=== PATIENT | female | born 1965 | race African-American/Black ===

== ENCOUNTER 2022-11-30 13:39 | Inpatient (IN) | payer SELFPAY ==
[~2022-11-30 13:39] MED LIST: Iopamidol 370 76% 100 ML VIAL ONE
[2022-11-30] MEDS ORDERED: niCARdipine 25 MG/10 ML VIAL ONE (14:16)
[2022-11-30] MEDS ORDERED: Iopamidol 370 76% 100 ML VIAL ONE (14:35)
[2022-11-30] MEDS ORDERED: Senokot S 8.6-50 MG TAB PO PRN (14:41)
[2022-11-30] MEDS ORDERED: HYDROcodone/Acetaminophen 5/325 mg Tablet PO PRN (14:41)
[2022-11-30] MEDS ORDERED: Labetalol HCl 100 MG/20 ML VIAL SLOW IVP PRN (14:43)
[2022-11-30] MEDS ORDERED: Communication Order-Pharmacy FS ONE (14:43)
[2022-11-30] MEDS ORDERED: niCARdipine 25 MG in Sodium Chloride 0.9% 250 ML 250 ML IVPB PRN (14:43)
[2022-11-30] MEDS ORDERED: Dextrose 5% in Water 1,000 ML IV PRN (14:47)
[2022-11-30] MEDS ORDERED: HumaLOG 300 UNITS/3 ML VIAL SC PRN (14:47)
[2022-11-30] MEDS ORDERED: Dextrose 50% Abboject 50 ML SYRINGE SLOW IVP PRN (14:47)
[2022-11-30 15:39] LABS: SARS-CoV-2 NAA Rapid Test Not Detected (NotDetected)
[2022-11-30 15:57] VITALS: BMI 21.6
[2022-11-30] MEDS ORDERED: FLU VACC QS2022-23(6MOS UP)/PF 60 MCG/0.5 ML SYRINGE IM ONE (17:00)
[2022-11-30 17:09] LABS: Amphetamine Not Detected (NotDetected); Barbiturates Screen Not Detected (NotDetected); Benzodiazepine Screen Not Detected (NotDetected); Cocaine Metabolite Screen Detected (NotDetected); Methadone Not Detected (NotDetected); Methamphetamine Not Detected (NotDetected); Opiate Screen Not Detected (NotDetected); Oxycodone Screen Not Detected (NotDetected); Phencyclidine (PCP) Not Detected (NotDetected); THC/Cannabinoid Screen Not Detected (NotDetected); Tricyclic Screen Not Detected (NotDetected)
[2022-11-30] MEDS: Famotidine/PF 20 mg/2ml Vial SLOW IVP SCH (20:34)
[2022-11-30] MEDS: Atorvastatin Calcium 40 MG TAB PO SCH (20:34)
[2022-11-30] MEDS: HumaLOG 300 UNITS/3 ML VIAL SC PRN (21:12)
[2022-11-30] MEDS ORDERED: Insulin Regular 300 UNITS/3 ML VIAL SC SCH (22:45)
[2022-12-01] MEDS: hydrALAZINE 20 MG/ML VIAL SLOW IVP PRN ×4 (03:11→18:04)
[2022-12-01] MEDS: HumaLOG 300 UNITS/3 ML VIAL SC PRN ×4 (04:36→20:49)
[2022-12-01] MEDS: Famotidine/PF 20 mg/2ml Vial SLOW IVP SCH ×2 (07:36→20:37)
[2022-12-01] MEDS ORDERED: niCARdipine 25 MG in Sodium Chloride 0.9% 250 ML 250 ML IVPB PRN (14:04)
[2022-12-01] MEDS ORDERED: Labetalol HCl 100 MG/20 ML VIAL SLOW IVP PRN (14:04)
[2022-12-01] MEDS ORDERED: Communication Order-Pharmacy FS ONE (14:04)
[2022-12-01] MEDS ORDERED: hydrALAZINE 20 MG/ML VIAL ONE ×2 (14:42→18:04)
[2022-12-01 16:10] LABS: #Basophils 0.1 thou/uL (0.0-0.2); #Eosinphils 0.1 thou/uL (0.0-0.7); #Lymphocytes 3.5 thou/uL (1.20-3.40); #Monocytes 0.7 thou/uL (0.11-0.59); %Eosinophils 0.6 % (0.0-10.0); %Lymphocytes 33.5 % (21.0-51.0); %Monocytes 7.2 % (0.0-10.0); %Neutrophils 57.7 % (42.0-75.0); Hemoglobin 14.2 g/dL (12.0-16.0); Mean Corpuscular HGB CONC 34.2 g/dL (32.0-36.0); Mean Corpuscular Hemoglobin 31.1 pg (27.0-31.0); Mean Corpuscular Volume 90.9 fl (78.0-98.0); Mean Platelet Volume 7.9 fL (7.4-10.4); Platelet Count 255 10x3/uL (130-400); RBC Distribution Width 12.9 % (11.5-14.5); Red Blood Cell (RBC) Count 4.58 mill/uL (4.20-5.40); White Blood Cell (WBC) Count 10.4 10x3/uL (4.8-10.8)
[2022-12-01 16:29] LABS: ALT (SGPT) 13 U/L (8-55); AST (SGOT) 11 U/L (5-34); Alkaline Phosphatase 78 U/L (40-110); Anion Gap 14 mmol/L (10-20); BUN (Urea Nitrogen) 15 mg/dL (9.8-20.1); Bilirubin, Total 0.3 mg/dL (0.2-1.2); Calc. Creatinine Clearance 82 mL/min (70-130); Calcium 10.1 mg/dL (7.8-10.44); Carbon Dioxide 24 mmol/L (22-29); Cardiac Risk 3.6 (Less than 4.5); Chloride 104 mmol/L (98-107); Cholesterol 222 mg/dl (< 200 Desired); Estimated GFR 88; Globulin 3.2 g/dL (2.4-3.5); Glucose 124 mg/dL (70-105); HDL Cholesterol 61 mg/dL (>60 Neg Risk); LDL Cholesterol, Calculated 147 mg/dL; Potassium 3.9 mmol/L (3.5-5.1); Protein, Total 7.2 g/dL (6.0-8.3); Sodium 138 mmol/L (136-145); Triglycerides 69 mg/dL (Less than 150)
[2022-12-01] MEDS: Atorvastatin Calcium 40 MG TAB PO SCH (20:37)
[2022-12-02] MEDS ORDERED: hydrALAZINE 20 MG/ML VIAL ONE (00:10)
[2022-12-02] MEDS: hydrALAZINE 20 MG/ML VIAL SLOW IVP PRN (00:10)
[2022-12-02] MEDS: HumaLOG 300 UNITS/3 ML VIAL SC PRN ×4 (05:50→20:56)
[2022-12-02] MEDS: Aspirin 325 mg Enteric Coated Tablet PO SCH (08:02)
[2022-12-02] MEDS: Famotidine 20 MG TAB PO SCH ×2 (08:02→21:11)
[2022-12-02] MEDS ORDERED: Haloperidol Lactate 5 MG/ML VIAL SLOW IVP SCH (12:45)
[2022-12-02] MEDS ORDERED: Lorazepam 2 MG/ML VIAL SLOW IVP SCH (12:45)
[2022-12-02] MEDS ORDERED: Haloperidol Lactate 5 MG/ML VIAL SLOW IVP PRN (18:39)
[2022-12-02] MEDS ORDERED: Lorazepam 2 MG/ML VIAL SLOW IVP PRN (18:39)
[2022-12-02] MEDS: Insulin Glargine 30 UNITS/0.3 ML VIAL SC SCH (20:50)
[2022-12-02] MEDS: Atorvastatin Calcium 40 MG TAB PO SCH (21:10)
[2022-12-03 03:58] LABS: Hemoglobin 13.9 g/dL (12.0-16.0); Mean Corpuscular HGB CONC 33.7 g/dL (32.0-36.0); Mean Corpuscular Hemoglobin 31.1 pg (27.0-31.0); Mean Corpuscular Volume 92.4 fl (78.0-98.0); Mean Platelet Volume 8.4 fL (7.4-10.4); Platelet Count 203 10x3/uL (130-400); RBC Distribution Width 12.8 % (11.5-14.5); Red Blood Cell (RBC) Count 4.47 mill/uL (4.20-5.40); White Blood Cell (WBC) Count 7.2 10x3/uL (4.8-10.8)
[2022-12-03 04:20] LABS: Anion Gap 13 mmol/L (10-20); BUN (Urea Nitrogen) 26 mg/dL (9.8-20.1); Calc. Creatinine Clearance 82 mL/min (70-130); Calcium 9.6 mg/dL (7.8-10.44); Carbon Dioxide 24 mmol/L (22-29); Chloride 106 mmol/L (98-107); Estimated GFR 89; Glucose 141 mg/dL (70-105); Potassium 3.8 mmol/L (3.5-5.1); Sodium 139 mmol/L (136-145)
[2022-12-03] MEDS: HumaLOG 300 UNITS/3 ML VIAL SC PRN ×4 (06:45→20:36)
[2022-12-03] MEDS: Amlodipine 5 MG TAB PO SCH (08:51)
[2022-12-03] MEDS: Famotidine 20 MG TAB PO SCH ×2 (08:51→20:16)
[2022-12-03] MEDS: Aspirin 325 mg Enteric Coated Tablet PO SCH (08:51)
[2022-12-03] MEDS ORDERED: hydrALAZINE 20 MG/ML VIAL SLOW IVP PRN (11:01)
[2022-12-03] MEDS: Atorvastatin Calcium 40 MG TAB PO SCH (20:16)
[2022-12-03] MEDS: Insulin Glargine 30 UNITS/0.3 ML VIAL SC SCH (20:34)
[2022-12-04] MEDS: Acetaminophen 325 MG TAB PO PRN (04:30)
[2022-12-04] MEDS: HumaLOG 300 UNITS/3 ML VIAL SC PRN ×4 (06:28→20:39)
[2022-12-04] MEDS: Aspirin 325 mg Enteric Coated Tablet PO SCH (09:32)
[2022-12-04] MEDS: Amlodipine 5 MG TAB PO SCH (09:32)
[2022-12-04] MEDS: Hydrochlorothiazide 25 MG TAB PO SCH (09:33)
[2022-12-04] MEDS: Famotidine 20 MG TAB PO SCH ×3 (09:33→23:36)
[2022-12-04] MEDS ORDERED: Lisinopril 20 MG TAB PO SCH (10:30)
[2022-12-04] MEDS ORDERED: hydrOXYzine 25 MG TAB PO SCH (15:00)
[2022-12-04] MEDS ORDERED: hydrOXYzine 25 MG TAB PO PRN (18:55)
[2022-12-04] MEDS: Insulin Glargine 30 UNITS/0.3 ML VIAL SC SCH (20:39)
[2022-12-04] MEDS: Atorvastatin Calcium 40 MG TAB PO SCH ×2 (20:41→23:36)
[2022-12-05] MEDS: HumaLOG 300 UNITS/3 ML VIAL SC PRN ×4 (06:20→20:40)
[2022-12-05] MEDS: Hydrochlorothiazide 25 MG TAB PO SCH (08:45)
[2022-12-05] MEDS: Lisinopril 20 MG TAB PO SCH (08:46)
[2022-12-05] MEDS: Famotidine 20 MG TAB PO SCH ×2 (08:46→20:39)
[2022-12-05] MEDS: Amlodipine 10 MG TAB PO SCH (08:47)
[2022-12-05] MEDS: Aspirin Chewable 81 MG TAB PO SCH (08:47)
[2022-12-05] MEDS: Acetaminophen 325 MG TAB PO PRN ×2 (16:07→20:39)
[2022-12-05] MEDS: Atorvastatin Calcium 40 MG TAB PO SCH (20:39)
[2022-12-05] MEDS: Insulin Glargine 30 UNITS/0.3 ML VIAL SC SCH (20:39)
[2022-12-06] MEDS: HumaLOG 300 UNITS/3 ML VIAL SC PRN ×4 (06:07→21:51)
[2022-12-06] MEDS: Aspirin Chewable 81 MG TAB PO SCH (08:54)
[2022-12-06] MEDS: Lisinopril 20 MG TAB PO SCH (08:54)
[2022-12-06] MEDS: Hydrochlorothiazide 25 MG TAB PO SCH (08:54)
[2022-12-06] MEDS: Famotidine 20 MG TAB PO SCH ×2 (08:54→21:52)
[2022-12-06] MEDS: Amlodipine 10 MG TAB PO SCH (08:55)
[2022-12-06] MEDS ORDERED: Melatonin 3 MG TAB PO PRN (21:40)
[2022-12-06] MEDS: Atorvastatin Calcium 40 MG TAB PO SCH (21:52)
[2022-12-06] MEDS: Insulin Glargine 30 UNITS/0.3 ML VIAL SC SCH (21:52)
[2022-12-06] MEDS: Acetaminophen 325 MG TAB PO PRN (21:55)
[2022-12-07] MEDS: HumaLOG 300 UNITS/3 ML VIAL SC PRN ×3 (06:14→17:20)
[2022-12-07] MEDS: Lisinopril 20 MG TAB PO SCH (09:22)
[2022-12-07] MEDS: Famotidine 20 MG TAB PO SCH ×2 (09:22→21:27)
[2022-12-07] MEDS: Aspirin Chewable 81 MG TAB PO SCH (09:23)
[2022-12-07] MEDS: Amlodipine 10 MG TAB PO SCH (09:23)
[2022-12-07] MEDS: Hydrochlorothiazide 25 MG TAB PO SCH (09:26)
[2022-12-07] MEDS ORDERED: Glimepiride 4 MG TAB PO SCH (11:30)
[2022-12-07] MEDS ORDERED: metFORMIN 500 MG TAB PO SCH (11:30)
[2022-12-07] MEDS: Acetaminophen 325 MG TAB PO PRN ×2 (17:19→21:27)
[2022-12-07] MEDS ORDERED: Zolpidem Tartrate 5 MG TAB PO PRN (17:33)
[2022-12-07] MEDS: Atorvastatin Calcium 40 MG TAB PO SCH (21:27)
[2022-12-07] MEDS: metFORMIN 500 MG TAB PO SCH (21:27)
[2022-12-07] MEDS: Insulin Glargine 30 UNITS/0.3 ML VIAL SC SCH (21:28)
[2022-12-08] MEDS: HumaLOG 300 UNITS/3 ML VIAL SC PRN ×2 (06:15→16:24)
[2022-12-08 06:26] LABS: #Eosinphils 0.2 thou/uL (0.0-0.7); #Lymphocytes 2.1 thou/uL (1.20-3.40); #Monocytes 0.5 thou/uL (0.11-0.59); #Neutrophils 3.3 thou/uL (1.40-6.50); %Basophils 0.6 % (0.0-1.0); %Eosinophils 2.7 % (0.0-10.0); %Lymphocytes 33.6 % (21.0-51.0); %Monocytes 8.8 % (0.0-10.0); %Neutrophils 54.2 % (42.0-75.0); Hemoglobin 12.8 g/dL (12.0-16.0); Mean Corpuscular HGB CONC 32.9 g/dL (32.0-36.0); Mean Corpuscular Hemoglobin 30.8 pg (27.0-31.0); Mean Corpuscular Volume 93.6 fl (78.0-98.0); Mean Platelet Volume 10.7 fL (7.4-10.4); Platelet Count 183 10x3/uL (130-400); RBC Distribution Width 12.2 % (11.5-14.5); Red Blood Cell (RBC) Count 4.14 mill/uL (4.20-5.40); White Blood Cell (WBC) Count 6.2 10x3/uL (4.8-10.8)
[2022-12-08 06:37] LABS: Anion Gap 15 mmol/L (10-20); BUN (Urea Nitrogen) 25 mg/dL (9.8-20.1); Calc. Creatinine Clearance 92 mL/min (70-130); Calcium 9.3 mg/dL (7.8-10.44); Carbon Dioxide 22 mmol/L (22-29); Chloride 103 mmol/L (98-107); Estimated GFR 98; Glucose 163 mg/dL (70-105); Potassium 4.9 mmol/L (3.5-5.1); Sodium 135 mmol/L (136-145)
[2022-12-08] MEDS: Amlodipine 10 MG TAB PO SCH (10:39)
[2022-12-08] MEDS: Lisinopril 20 MG TAB PO SCH (10:39)
[2022-12-08] MEDS: Aspirin Chewable 81 MG TAB PO SCH (10:39)
[2022-12-08] MEDS: metFORMIN 500 MG TAB PO SCH ×2 (10:40→19:25)
[2022-12-08] MEDS: Hydrochlorothiazide 25 MG TAB PO SCH (10:40)
[2022-12-08] MEDS: Famotidine 20 MG TAB PO SCH ×2 (10:40→19:25)
[2022-12-08] MEDS: Glimepiride 4 MG TAB PO SCH (10:42)
[2022-12-08] MEDS ORDERED: hydrOXYzine 25 MG TAB PO SCH (19:15)
[2022-12-08] MEDS: Atorvastatin Calcium 40 MG TAB PO SCH (19:25)
[2022-12-08] MEDS: Insulin Glargine 30 UNITS/0.3 ML VIAL SC SCH (19:25)
[2022-12-09 05:25] LABS: #Eosinphils 0.1 thou/uL (0.0-0.7); #Lymphocytes 2.4 thou/uL (1.20-3.40); #Monocytes 0.7 thou/uL (0.11-0.59); #Neutrophils 3.6 thou/uL (1.40-6.50); %Basophils 0.5 % (0.0-1.0); %Eosinophils 1.3 % (0.0-10.0); %Lymphocytes 35.1 % (21.0-51.0); %Monocytes 10.2 % (0.0-10.0); %Neutrophils 52.9 % (42.0-75.0); Hemoglobin 12.7 g/dL (12.0-16.0); Mean Corpuscular HGB CONC 33.8 g/dL (32.0-36.0); Mean Corpuscular Hemoglobin 31.5 pg (27.0-31.0); Mean Corpuscular Volume 93.2 fl (78.0-98.0); Mean Platelet Volume 7.9 fL (7.4-10.4); Platelet Count 217 10x3/uL (130-400); RBC Distribution Width 12.2 % (11.5-14.5); Red Blood Cell (RBC) Count 4.04 mill/uL (4.20-5.40); White Blood Cell (WBC) Count 6.7 10x3/uL (4.8-10.8)
[2022-12-09 05:47] LABS: Anion Gap 12 mmol/L (10-20); BUN (Urea Nitrogen) 22 mg/dL (9.8-20.1); Calc. Creatinine Clearance 89 mL/min (70-130); Carbon Dioxide 24 mmol/L (22-29); Chloride 103 mmol/L (98-107); Estimated GFR 95; Glucose 101 mg/dL (70-105); Potassium 4.2 mmol/L (3.5-5.1); Sodium 135 mmol/L (136-145)
[2022-12-09] MEDS: Glimepiride 4 MG TAB PO SCH (09:46)
[2022-12-09] MEDS: Hydrochlorothiazide 25 MG TAB PO SCH (09:46)
[2022-12-09] MEDS: metFORMIN 500 MG TAB PO SCH ×2 (09:46→20:27)
[2022-12-09] MEDS: Aspirin Chewable 81 MG TAB PO SCH (09:46)
[2022-12-09] MEDS: Famotidine 20 MG TAB PO SCH ×2 (09:47→20:27)
[2022-12-09] MEDS: Amlodipine 10 MG TAB PO SCH (09:47)
[2022-12-09] MEDS: Lisinopril 20 MG TAB PO SCH (09:47)
[2022-12-09] MEDS: Atorvastatin Calcium 40 MG TAB PO SCH (20:27)
[2022-12-10 06:24] LABS: #Basophils 0.1 thou/uL (0.0-0.2); #Eosinphils 0.1 thou/uL (0.0-0.7); #Lymphocytes 2.3 thou/uL (1.20-3.40); #Monocytes 0.6 thou/uL (0.11-0.59); %Basophils 0.9 % (0.0-1.0); %Eosinophils 2.4 % (0.0-10.0); %Lymphocytes 37.3 % (21.0-51.0); %Monocytes 9.6 % (0.0-10.0); %Neutrophils 49.8 % (42.0-75.0); Hemoglobin 12.5 g/dL (12.0-16.0); Mean Corpuscular HGB CONC 33.8 g/dL (32.0-36.0); Mean Corpuscular Hemoglobin 31.7 pg (27.0-31.0); Mean Corpuscular Volume 93.8 fl (78.0-98.0); Platelet Count 230 10x3/uL (130-400); RBC Distribution Width 12.4 % (11.5-14.5); Red Blood Cell (RBC) Count 3.95 mill/uL (4.20-5.40); White Blood Cell (WBC) Count 6.1 10x3/uL (4.8-10.8)
[2022-12-10 06:42] LABS: Anion Gap 12 mmol/L (10-20); BUN (Urea Nitrogen) 22 mg/dL (9.8-20.1); Calc. Creatinine Clearance 90 mL/min (70-130); Calcium 9.8 mg/dL (7.8-10.44); Carbon Dioxide 24 mmol/L (22-29); Chloride 104 mmol/L (98-107); Estimated GFR 96; Glucose 128 mg/dL (70-105); Potassium 3.9 mmol/L (3.5-5.1); Sodium 136 mmol/L (136-145)
[2022-12-10 08:28] VITALS: TEMP 98.1
[2022-12-10] MEDS: Aspirin Chewable 81 MG TAB PO SCH (09:25)
[2022-12-10] MEDS: Lisinopril 20 MG TAB PO SCH (09:25)
[2022-12-10] MEDS: Amlodipine 10 MG TAB PO SCH (09:25)
[2022-12-10] MEDS: Famotidine 20 MG TAB PO SCH (09:25)
[2022-12-10] MEDS: Glimepiride 4 MG TAB PO SCH (09:26)
[2022-12-10] MEDS: Hydrochlorothiazide 25 MG TAB PO SCH (09:26)
[2022-12-10] MEDS: metFORMIN 500 MG TAB PO SCH (09:27)
[2022-12-10 09:28] VITALS: BP 154/84
== END 2022-12-10 09:50 | disposition left against medical advice (07) | DRG 917 ==
LOC: ERS 13:39 → CCU 14:32 → NEURO 12-03 22:18
PROVIDERS: ADMIT Family Medicine; ATTEND Family Medicine
DX: T40.5X1A Poisoning by cocaine, accidental (unintentional), initial encounter (principal); I63.9 Cerebral infarction, unspecified; G81.94 Hemiplegia, unspecified affecting left nondominant side; I16.1 Hypertensive emergency; F14.10 Cocaine abuse, uncomplicated; E11.65 Type 2 diabetes mellitus with hyperglycemia; I65.1 Occlusion and stenosis of basilar artery; Z20.822 Contact with and (suspected) exposure to COVID-19; Z91.199 Patient's noncompliance with other medical treatment and regimen due to unspecified reason; Z92.82 Status post administration of tPA (rtPA) in a different facility within the last 24 hours prior to admission to current facility; Y92.9 Unspecified place or not applicable
CPT/HCPCS: 36415; 36416; 70450; 70496; 70498; 71045; 80048; 80053; 80061; 80306; 83036; 85025; 85027; 87811; 93005; 93306; 96365; J0360; J1630; J1650; J1815; J2060; J7050; Q9967; S0028; U0002

== ENCOUNTER 2023-01-31 00:03 | Inpatient (IN) | payer OTHER ==
[2023-01-31] MEDS ORDERED: Rocuronium Bromide 10 MG/ML (10ML VIAL) ONE (00:05)
[2023-01-31] MEDS ORDERED: fentaNYL 50 mcg/mL 1 mL Vial ONE ×4 (00:22→02:34)
[2023-01-31] MEDS ORDERED: Propofol 1,000 MG/100 ML VIAL IV ONE (00:22)
[2023-01-31 00:35] LABS: Actual Bicarbonate (HCO3a) 22.4 mEq/L (22-28); Base Excess (BEa) 0.3 mEq/L (-2.0 to +3.0); CO2 Tension 29.4 mmHg (35.0-45.0); Calcium, Ionized (arterial) 1.14 mmol/L (1.12-1.30); Carboxyhemoglobin (COHb) 5.6 gm% (0.0-3.0); Hemoglobin (Hb) 14.8 g/dL (12.0-16.0); O2 Tension (PaO2), arterial 325.8 mmHg (80.0-100.0); Potassium - ABG Lab 3.08 mmol/L (3.70-5.30)
[2023-01-31 00:38] LABS: Puncture Site RRA
[2023-01-31 00:45] LABS: Amphetamine Not Detected (NotDetected); Barbiturates Screen Not Detected (NotDetected); Benzodiazepine Screen Not Detected (NotDetected); Cocaine Metabolite Screen Detected (NotDetected); Methadone Not Detected (NotDetected); Methamphetamine Not Detected (NotDetected); Opiate Screen Not Detected (NotDetected); Oxycodone Screen Not Detected (NotDetected); Phencyclidine (PCP) Not Detected (NotDetected); THC/Cannabinoid Screen Not Detected (NotDetected); Tricyclic Screen Not Detected (NotDetected)
[2023-01-31 00:48] LABS: Bacteria/HPF None Seen HPF (None Seen); Bilirubin Negative (Negative); Blood, Urine Negative (Negative); Clarity Clear (Clear); Glucose, Urine (Dipstick) Greater than 1000 mg/dL (Negative); Ketone, Urine Negative (Negative); Leukocyte Negative Leu/uL (Negative); Nitrite Negative (Negative); Protein, Urine (Dipstick) 50 mg/dL (Neg-Trace); RBC/HPF None Seen HPF (0-3); Specific Gravity, Urine 1.023 (1.002-1.036); Squamous Epithelial 0-3 HPF (0-3); Urobilinogen Normal mg/dL (Less than 2); WBC/HPF 0-3 HPF (0-3)
[2023-01-31 01:04] LABS: #Eosinphils 0.1 thou/uL (0.0-0.7); #Lymphocytes 2.3 thou/uL (1.20-3.40); #Monocytes 0.4 thou/uL (0.11-0.59); #Neutrophils 4.3 thou/uL (1.40-6.50); %Basophils 0.7 % (0.0-1.0); %Eosinophils 1.4 % (0.0-10.0); %Lymphocytes 31.8 % (21.0-51.0); %Monocytes 5.9 % (0.0-10.0); %Neutrophils 60.1 % (42.0-75.0); Hematocrit 40.5 % (36.0-47.0); Hemoglobin 13.8 g/dL (12.0-16.0); Mean Corpuscular Hemoglobin 30.6 pg (27.0-31.0); Mean Corpuscular Volume 90.2 fl (78.0-98.0); Mean Platelet Volume 8.4 fL (7.4-10.4); Platelet Count 215 10x3/uL (130-400); RBC Distribution Width 12.7 % (11.5-14.5); Red Blood Cell (RBC) Count 4.49 mill/uL (4.20-5.40); White Blood Cell (WBC) Count 7.1 10x3/uL (4.8-10.8)
[2023-01-31] MEDS ORDERED: niCARdipine 25 MG/10 ML SDV ONE ×3 (01:04→02:40)
[2023-01-31] MEDS ORDERED: hydrALAZINE 20 MG/ML VIAL ONE (01:25)
[2023-01-31 01:28] LABS: Acetaminophen Less than 10.0 mcg/mL (10.0-30.0); Alcohol Less than 10 mg/dL (Less than 10); Salicylate Less than 8.0 mg/dL (15.0-30.0)
[2023-01-31 01:31] LABS: ALT (SGPT) 10 U/L (8-55); AST (SGOT) 22 U/L (5-34); Albumin 4.1 g/dL (3.5-5.0); Alkaline Phosphatase 80 U/L (40-110); Anion Gap 18 mmol/L (10-20); BUN (Urea Nitrogen) 16 mg/dL (9.8-20.1); Bilirubin, Total 0.3 mg/dL (0.2-1.2); CK (CPK) 88 U/L (29-168); Calc. Creatinine Clearance 0 mL/min (70-130); Calcium 9.7 mg/dL (7.8-10.44); Carbon Dioxide 20 mmol/L (22-29); Chloride 103 mmol/L (98-107); Estimated GFR 69; Globulin 3.8 g/dL (2.4-3.5); Glucose 329 mg/dL (70-105); Lipase 6 U/L (8-78); Potassium 3.7 mmol/L (3.5-5.1); Protein, Total 7.9 g/dL (6.0-8.3); Sodium 137 mmol/L (136-145)
[2023-01-31] MEDS ORDERED: levETIRAcetam 500 MG/5 ML VIAL ONE (01:49)
[2023-01-31] MEDS ORDERED: niCARdipine 25 MG in Sodium Chloride 0.9% 250 ML 250 ML IVPB PRN (04:15)
[2023-01-31] MEDS ORDERED: Propofol BOLUS 1,000 MG/100 ML VIAL IV PRN (04:15)
[2023-01-31] MEDS ORDERED: Fentanyl BOLUS 250 ML IVPB PRN (04:15)
[2023-01-31] MEDS ORDERED: DISCONTINUE PREVIOUS NARCOTIC PAIN MEDICATIONS AND BENZODIAZEPINES FS SCH (04:15)
[2023-01-31] MEDS: Sodium Chloride 0.9% 1,000 ML IV SCH ×2 (04:43→20:00)
[2023-01-31] MEDS ORDERED: Lorazepam 2 MG/ML VIAL SLOW IVP PRN (04:45)
[2023-01-31] MEDS ORDERED: Glucagon 1 MG/ML KIT IM PRN (04:47)
[2023-01-31] MEDS ORDERED: Dextrose 50% Abboject 50 ML SYRINGE SLOW IVP PRN (04:47)
[2023-01-31] MEDS ORDERED: Electrolyte Replacement Protocol 1 EACH FS PRN (04:48)
[2023-01-31] MEDS ORDERED: Senokot S 8.6-50 MG TAB PO PRN (04:49)
[2023-01-31] MEDS ORDERED: Ondansetron ODT 4 MG TAB PO PRN (04:49)
[2023-01-31] MEDS: niCARdipine 25 MG in Sodium Chloride 0.9% 250 ML 250 ML IVPB PRN ×5 (05:28→11:30)
[2023-01-31] MEDS: Propofol 1,000 MG/100 ML VIAL IV PRN ×5 (05:30→22:21)
[2023-01-31] MEDS: HumaLOG 300 UNITS/3 ML VIAL SC PRN (06:22)
[2023-01-31] MEDS ORDERED: Insulin Glargine 30 UNITS/0.3 ML VIAL SC SCH (09:00)
[2023-01-31] MEDS: Insulin Glargine 30 UNITS/0.3 ML VIAL SC SCH (10:00)
[2023-01-31] MEDS ORDERED: Iopamidol-370 76% 500 ML MDV (1 ML CHARGE) ONE (11:04)
[2023-01-31] MEDS ORDERED: Amlodipine 10 MG TAB PO SCH (11:30)
[2023-01-31] MEDS ORDERED: Lisinopril 20 MG TAB PO SCH (11:30)
[2023-01-31] MEDS ORDERED: Magnevist 469MG/ML 20 ML VIAL ONE (11:37)
[2023-01-31] MEDS: Lisinopril 20 MG TAB PO SCH (13:26)
[2023-01-31] MEDS: Amlodipine 10 MG TAB PO SCH (13:27)
[2023-01-31] MEDS: Pantoprazole 40 MG VIAL IVP SCH (13:28)
[2023-01-31] MEDS: levETIRAcetam 500 MG/5 ML VIAL SLOW IVP SCH (20:00)
[2023-01-31] MEDS ORDERED: Insulin NPH Human Isophane 100 UNITS/ML (10 ML VIAL) SQ SCH (21:00)
[2023-01-31] MEDS ORDERED: levETIRAcetam in NS 500 MG in Premix Bag 1 BAG IVPB SCH (21:00)
[2023-01-31] MEDS ORDERED: Fentanyl CADD 100 ML ONE (22:37)
[2023-01-31] MEDS: Fentanyl CADD 100 ML IV SCH (22:48)
[2023-02-01] MEDS: Propofol 1,000 MG/100 ML VIAL IV PRN (04:04)
[2023-02-01 04:28] LABS: #Eosinphils 0.1 thou/uL (0.0-0.7); #Lymphocytes 2.1 thou/uL (1.20-3.40); #Monocytes 0.5 thou/uL (0.11-0.59); #Neutrophils 4.1 thou/uL (1.40-6.50); %Basophils 0.2 % (0.0-1.0); %Eosinophils 1.5 % (0.0-10.0); %Lymphocytes 30.3 % (21.0-51.0); %Monocytes 6.8 % (0.0-10.0); %Neutrophils 61.1 % (42.0-75.0); Hematocrit 34.2 % (36.0-47.0); Mean Corpuscular HGB CONC 34.9 g/dL (32.0-36.0); Mean Corpuscular Hemoglobin 31.9 pg (27.0-31.0); Mean Corpuscular Volume 91.3 fl (78.0-98.0); Mean Platelet Volume 7.9 fL (7.4-10.4); Platelet Count 203 10x3/uL (130-400); Red Blood Cell (RBC) Count 3.75 mill/uL (4.20-5.40); White Blood Cell (WBC) Count 6.8 10x3/uL (4.8-10.8)
[2023-02-01 04:46] LABS: ALT (SGPT) 7 U/L (8-55); AST (SGOT) 8 U/L (5-34); Albumin 3.3 g/dL (3.5-5.0); Alkaline Phosphatase 67 U/L (40-110); Anion Gap 13 mmol/L (10-20); BUN (Urea Nitrogen) 8 mg/dL (9.8-20.1); Bilirubin, Total 0.3 mg/dL (0.2-1.2); Calc. Creatinine Clearance 97 mL/min (70-130); Calcium 8.7 mg/dL (7.8-10.44); Carbon Dioxide 22 mmol/L (22-29); Chloride 110 mmol/L (98-107); Estimated GFR 103; Globulin 2.8 g/dL (2.4-3.5); Glucose 120 mg/dL (70-105); Potassium 2.8 mmol/L (3.5-5.1); Protein, Total 6.1 g/dL (6.0-8.3); Sodium 142 mmol/L (136-145)
[2023-02-01] MEDS: Potassium Chloride 40 MEQ in Premix Bag 1 BAG IVPB SCH ×2 (05:48→08:34)
[2023-02-01] MEDS: levETIRAcetam 500 MG/5 ML VIAL SLOW IVP SCH ×2 (08:17→20:49)
[2023-02-01] MEDS: Pantoprazole 40 MG VIAL IVP SCH (08:17)
[2023-02-01] MEDS: Insulin Glargine 30 UNITS/0.3 ML VIAL SC SCH (08:17)
[2023-02-01] MEDS: niCARdipine 25 MG in Sodium Chloride 0.9% 250 ML 250 ML IVPB PRN (08:17)
[2023-02-01] MEDS: Lisinopril 20 MG TAB PO SCH (08:18)
[2023-02-01] MEDS: Amlodipine 10 MG TAB PO SCH (08:18)
[2023-02-01] MEDS ORDERED: Insulin NPH Human Isophane 100 UNITS/ML (10 ML VIAL) SC SCH (09:00)
[2023-02-01] MEDS: HumaLOG 300 UNITS/3 ML VIAL SC PRN (10:18)
[2023-02-01 12:35] LABS: Potassium 4.1 mmol/L (3.5-5.1)
[2023-02-01] MEDS: hydrALAZINE 10 MG TAB PER TUBE SCH ×2 (15:33→20:49)
[2023-02-02] MEDS: Amlodipine 10 MG TAB PO SCH (10:00)
[2023-02-02] MEDS: Insulin Glargine 30 UNITS/0.3 ML VIAL SC SCH (10:01)
[2023-02-02] MEDS: hydrALAZINE 10 MG TAB PER TUBE SCH ×3 (10:01→20:15)
[2023-02-02] MEDS: Lisinopril 20 MG TAB PO SCH (10:01)
[2023-02-02] MEDS: levETIRAcetam 500 MG/5 ML VIAL SLOW IVP SCH ×2 (10:01→20:16)
[2023-02-02] MEDS: Pantoprazole 40 MG VIAL IVP SCH (10:02)
[2023-02-02] MEDS: HumaLOG 300 UNITS/3 ML VIAL SC PRN ×3 (10:23→23:21)
[2023-02-02] MEDS: hydrALAZINE 20 MG/ML VIAL SLOW IVP PRN (13:18)
[2023-02-02] MEDS: niCARdipine 25 MG in Sodium Chloride 0.9% 250 ML 250 ML IVPB PRN (15:18)
[2023-02-02] MEDS ORDERED: Fentanyl CADD 100 ML ONE (20:09)
[2023-02-02] MEDS: Fentanyl CADD 100 ML IV SCH (20:16)
[2023-02-03 06:17] LABS: #Lymphocytes 1.2 thou/uL (1.20-3.40); #Monocytes 0.7 thou/uL (0.11-0.59); #Neutrophils 7.6 thou/uL (1.40-6.50); %Eosinophils 0.4 % (0.0-10.0); %Monocytes 7.2 % (0.0-10.0); %Neutrophils 79.4 % (42.0-75.0); Hematocrit 32.1 % (36.0-47.0); Hemoglobin 10.9 g/dL (12.0-16.0); Mean Corpuscular HGB CONC 34.1 g/dL (32.0-36.0); Mean Corpuscular Hemoglobin 31.6 pg (27.0-31.0); Mean Corpuscular Volume 92.8 fl (78.0-98.0); Mean Platelet Volume 8.7 fL (7.4-10.4); Platelet Count 193 10x3/uL (130-400); RBC Distribution Width 12.9 % (11.5-14.5); Red Blood Cell (RBC) Count 3.46 mill/uL (4.20-5.40); White Blood Cell (WBC) Count 9.6 10x3/uL (4.8-10.8)
[2023-02-03 06:30] LABS: ALT (SGPT) Less than 7 U/L (8-55); AST (SGOT) 8 U/L (5-34); Alkaline Phosphatase 62 U/L (40-110); Anion Gap 13 mmol/L (10-20); BUN (Urea Nitrogen) 19 mg/dL (9.8-20.1); Bilirubin, Total 0.4 mg/dL (0.2-1.2); Calc. Creatinine Clearance 82 mL/min (70-130); Calcium 9.2 mg/dL (7.8-10.44); Carbon Dioxide 22 mmol/L (22-29); Chloride 108 mmol/L (98-107); Estimated GFR 86; Globulin 2.9 g/dL (2.4-3.5); Glucose 173 mg/dL (70-105); Potassium 3.6 mmol/L (3.5-5.1); Protein, Total 5.9 g/dL (6.0-8.3); Sodium 139 mmol/L (136-145)
[2023-02-03] MEDS: HumaLOG 300 UNITS/3 ML VIAL SC PRN ×4 (06:46→23:05)
[2023-02-03 07:16] LABS: Actual Bicarbonate (HCO3a) 21.7 mEq/L (22-28); Base Excess (BEa) -2.3 mEq/L (-2.0 to +3.0); CO2 Tension 34.8 mmHg (35.0-45.0); Calcium, Ionized (arterial) 1.22 mmol/L (1.12-1.30); Hemoglobin (Hb) 11.3 g/dL (12.0-16.0); O2 Tension (PaO2), arterial 107.2 mmHg (80.0-100.0); Potassium - ABG Lab 3.64 mmol/L (3.70-5.30); pH, Arterial 7.41 (7.35-7.45)
[2023-02-03 07:18] LABS: Puncture Site RRA
[2023-02-03] MEDS: levETIRAcetam 500 MG/5 ML VIAL SLOW IVP SCH ×2 (08:13→20:29)
[2023-02-03] MEDS: Insulin Glargine 30 UNITS/0.3 ML VIAL SC SCH (08:13)
[2023-02-03] MEDS: hydrALAZINE 10 MG TAB PER TUBE SCH ×3 (08:14→20:29)
[2023-02-03] MEDS: Amlodipine 10 MG TAB PO SCH (08:14)
[2023-02-03] MEDS: Lisinopril 20 MG TAB PO SCH (08:14)
[2023-02-03] MEDS: Pantoprazole 40 MG VIAL IVP SCH (08:14)
[2023-02-03] MEDS ORDERED: Insulin Glargine 30 UNITS/0.3 ML VIAL SC SCH (09:46)
[2023-02-03] MEDS: hydrALAZINE 20 MG/ML VIAL SLOW IVP PRN (23:21)
[2023-02-04] MEDS: HumaLOG 300 UNITS/3 ML VIAL SC PRN ×3 (04:55→16:57)
[2023-02-04 05:01] LABS: #Eosinphils 0.1 thou/uL (0.0-0.7); #Monocytes 0.9 thou/uL (0.11-0.59); #Neutrophils 7.9 thou/uL (1.40-6.50); %Eosinophils 0.5 % (0.0-10.0); %Lymphocytes 10.2 % (21.0-51.0); %Monocytes 8.8 % (0.0-10.0); %Neutrophils 80.4 % (42.0-75.0); Hematocrit 31.3 % (36.0-47.0); Hemoglobin 10.7 g/dL (12.0-16.0); Mean Corpuscular HGB CONC 34.2 g/dL (32.0-36.0); Mean Corpuscular Hemoglobin 31.6 pg (27.0-31.0); Mean Corpuscular Volume 92.4 fl (78.0-98.0); Mean Platelet Volume 8.5 fL (7.4-10.4); Platelet Count 178 10x3/uL (130-400); RBC Distribution Width 12.6 % (11.5-14.5); Red Blood Cell (RBC) Count 3.38 mill/uL (4.20-5.40); White Blood Cell (WBC) Count 9.8 10x3/uL (4.8-10.8)
[2023-02-04 05:19] LABS: Anion Gap 14 mmol/L (10-20); BUN (Urea Nitrogen) 22 mg/dL (9.8-20.1); Calc. Creatinine Clearance 80 mL/min (70-130); Calcium 8.8 mg/dL (7.8-10.44); Carbon Dioxide 21 mmol/L (22-29); Chloride 106 mmol/L (98-107); Estimated GFR 82; Glucose 328 mg/dL (70-105); Potassium 3.9 mmol/L (3.5-5.1); Sodium 137 mmol/L (136-145)
[2023-02-04 07:29] LABS: Actual Bicarbonate (HCO3a) 22.4 mEq/L (22-28); Base Excess (BEa) -1.1 mEq/L (-2.0 to +3.0); CO2 Tension 33.3 mmHg (35.0-45.0); Carboxyhemoglobin (COHb) 0.3 gm% (0.0-3.0); Hemoglobin (Hb) 11.4 g/dL (12.0-16.0); O2 Tension (PaO2), arterial 129.4 mmHg (80.0-100.0); Potassium - ABG Lab 3.99 mmol/L (3.70-5.30); pH, Arterial 7.45 (7.35-7.45)
[2023-02-04 07:32] LABS: Puncture Site RA
[2023-02-04 07:34] LABS: ALV-art Gradient 78.525 mmHg (0-20)
[2023-02-04] MEDS ORDERED: NPH HUMAN INSULIN ISOPHANE SC SCH (09:00)
[2023-02-04] MEDS: levETIRAcetam 500 MG/5 ML VIAL SLOW IVP SCH ×2 (09:46→19:47)
[2023-02-04] MEDS: Lisinopril 20 MG TAB PO SCH (09:46)
[2023-02-04] MEDS: hydrALAZINE 10 MG TAB PER TUBE SCH ×3 (09:46→19:47)
[2023-02-04] MEDS: Amlodipine 10 MG TAB PO SCH (09:46)
[2023-02-04] MEDS: Insulin NPH Human Isophane 100 UNITS/ML (10 ML VIAL) SC SCH ×2 (09:50→19:47)
[2023-02-04] MEDS: Lansoprazole 15 MG/5 ML (BATCHED)UDCUP PER TUBE SCH (09:50)
[2023-02-04] MEDS: Pantoprazole 40 MG VIAL IVP SCH (10:10)
[2023-02-04] MEDS: Morphine 2 MG/ML VIAL SLOW IVP PRN ×3 (13:52→23:53)
[2023-02-04] MEDS: hydrALAZINE 20 MG/ML VIAL SLOW IVP PRN ×2 (14:00→23:05)
[2023-02-04] MEDS: Acetaminophen 325 MG TAB PER TUBE PRN (16:46)
[2023-02-04] MEDS: Lorazepam 2 MG/ML VIAL SLOW IVP PRN (19:47)
[2023-02-05 02:38] LABS: #Eosinphils 0.1 thou/uL (0.0-0.7); #Monocytes 1.1 thou/uL (0.11-0.59); #Neutrophils 7.5 thou/uL (1.40-6.50); %Basophils 0.2 % (0.0-1.0); %Eosinophils 0.6 % (0.0-10.0); %Lymphocytes 10.3 % (21.0-51.0); %Monocytes 11.5 % (0.0-10.0); %Neutrophils 77.3 % (42.0-75.0); Hematocrit 31.6 % (36.0-47.0); Hemoglobin 10.9 g/dL (12.0-16.0); Mean Corpuscular HGB CONC 34.4 g/dL (32.0-36.0); Mean Corpuscular Volume 92.9 fl (78.0-98.0); Mean Platelet Volume 8.4 fL (7.4-10.4); Platelet Count 210 10x3/uL (130-400); RBC Distribution Width 12.8 % (11.5-14.5); White Blood Cell (WBC) Count 9.7 10x3/uL (4.8-10.8)
[2023-02-05 02:58] LABS: Anion Gap 13 mmol/L (10-20); BUN (Urea Nitrogen) 16 mg/dL (9.8-20.1); Calc. Creatinine Clearance 91 mL/min (70-130); Calcium 9.4 mg/dL (7.8-10.44); Carbon Dioxide 26 mmol/L (22-29); Chloride 108 mmol/L (98-107); Estimated GFR 95; Glucose 206 mg/dL (70-105); Potassium 3.9 mmol/L (3.5-5.1); Sodium 143 mmol/L (136-145)
[2023-02-05 08:24] LABS: Actual Bicarbonate (HCO3a) 26.2 mEq/L (22-28); Base Excess (BEa) 2.5 mEq/L (-2.0 to +3.0); CO2 Tension 37.2 mmHg (35.0-45.0); Calcium, Ionized (arterial) 1.23 mmol/L (1.12-1.30); Carboxyhemoglobin (COHb) 0.3 gm% (0.0-3.0); Hemoglobin (Hb) 11.3 g/dL (12.0-16.0); O2 Tension (PaO2), arterial 108.1 mmHg (80.0-100.0); Potassium - ABG Lab 3.89 mmol/L (3.70-5.30); pH, Arterial 7.47 (7.35-7.45)
[2023-02-05 08:25] LABS: Puncture Site RRA
[2023-02-05] MEDS: Amlodipine 10 MG TAB PO SCH (09:51)
[2023-02-05] MEDS: hydrALAZINE 10 MG TAB PER TUBE SCH ×3 (09:51→20:41)
[2023-02-05] MEDS: Lisinopril 20 MG TAB PO SCH (09:52)
[2023-02-05] MEDS: Lansoprazole 15 MG/5 ML (BATCHED)UDCUP PER TUBE SCH (09:52)
[2023-02-05] MEDS: levETIRAcetam 500 MG/5 ML VIAL SLOW IVP SCH ×2 (09:52→20:41)
[2023-02-05] MEDS: Insulin NPH Human Isophane 100 UNITS/ML (10 ML VIAL) SC SCH ×2 (09:55→20:41)
[2023-02-05] MEDS: HumaLOG 300 UNITS/3 ML VIAL SC PRN ×3 (09:57→20:41)
[2023-02-05] MEDS: hydrALAZINE 20 MG/ML VIAL SLOW IVP PRN ×2 (12:17→16:29)
[2023-02-05] MEDS: Morphine 2 MG/ML VIAL SLOW IVP PRN ×3 (13:00→17:57)
[2023-02-05] MEDS: Lorazepam 2 MG/ML VIAL SLOW IVP PRN (14:48)
[2023-02-05] MEDS: Acetaminophen 325 MG TAB PER TUBE PRN (16:29)
[2023-02-05] MEDS: Atorvastatin Calcium 40 MG TAB PO SCH (20:41)
[2023-02-06] MEDS: Morphine 2 MG/ML VIAL SLOW IVP PRN ×5 (03:08→18:22)
[2023-02-06] MEDS: HumaLOG 300 UNITS/3 ML VIAL SC PRN ×3 (04:30→15:49)
[2023-02-06 06:39] LABS: Eosinophils 1 % (0-10); Hematocrit 38.2 % (36.0-47.0); Hypochromia SLIGHT = 6-15 cells (100X) (0-5/hpf); Lymphocytes 14 % (21-51); MDiff Complete? YES; Mean Corpuscular HGB CONC 28.8 g/dL (32.0-36.0); Mean Corpuscular Hemoglobin 28.3 pg (27.0-31.0); Mean Corpuscular Volume 98.4 fl (78.0-98.0); Mean Platelet Volume 9.4 fL (7.4-10.4); Monocytes 6 % (0-10); Neutrophil 77 % (42-75); Platelet Adequacy Comment Appears Adequate; Platelet Count 171 10x3/uL (130-400); RBC Distribution Width 13.2 % (11.5-14.5); Red Blood Cell (RBC) Count 3.88 mill/uL (4.20-5.40); Target Cells SLIGHT = 2-5 cells (100X) (0-1/hpf); White Blood Cell (WBC) Count 9.2 10x3/uL (4.8-10.8)
[2023-02-06 07:01] LABS: ALT (SGPT) 43 U/L (8-55); AST (SGOT) 43 U/L (5-34); Albumin 2.9 g/dL (3.5-5.0); Alkaline Phosphatase 87 U/L (40-110); Anion Gap 12 mmol/L (10-20); BUN (Urea Nitrogen) 21 mg/dL (9.8-20.1); Bilirubin, Total 0.2 mg/dL (0.2-1.2); Calc. Creatinine Clearance 101 mL/min (70-130); Calcium 9.4 mg/dL (7.8-10.44); Carbon Dioxide 26 mmol/L (22-29); Chloride 109 mmol/L (98-107); Estimated GFR 101; Globulin 3.4 g/dL (2.4-3.5); Glucose 203 mg/dL (70-105); Protein, Total 6.3 g/dL (6.0-8.3); Sodium 143 mmol/L (136-145)
[2023-02-06 07:26] LABS: Actual Bicarbonate (HCO3a) 27.8 mEq/L (22-28); Base Excess (BEa) 4.3 mEq/L (-2.0 to +3.0); Calcium, Ionized (arterial) 1.23 mmol/L (1.12-1.30); Carboxyhemoglobin (COHb) 0.3 gm% (0.0-3.0); Hemoglobin (Hb) 10.4 g/dL (12.0-16.0); O2 Tension (PaO2), arterial 94.3 mmHg (80.0-100.0); Potassium - ABG Lab 3.75 mmol/L (3.70-5.30); pH, Arterial 7.493 (7.35-7.45)
[2023-02-06 07:27] LABS: Puncture Site RRA
[2023-02-06] MEDS: Amlodipine 10 MG TAB PO SCH (10:06)
[2023-02-06] MEDS: Pantoprazole 40 MG VIAL IVP SCH (10:06)
[2023-02-06] MEDS: Lisinopril 20 MG TAB PO SCH (10:06)
[2023-02-06] MEDS: hydrALAZINE 10 MG TAB PER TUBE SCH ×3 (10:07→20:05)
[2023-02-06] MEDS: Insulin NPH Human Isophane 100 UNITS/ML (10 ML VIAL) SC SCH ×2 (10:07→20:06)
[2023-02-06] MEDS: levETIRAcetam 500 MG/5 ML VIAL SLOW IVP SCH ×2 (10:08→20:05)
[2023-02-06] MEDS: hydrALAZINE 20 MG/ML VIAL SLOW IVP PRN ×2 (12:07→17:04)
[2023-02-06] MEDS: Acetaminophen 325 MG TAB PER TUBE PRN (20:05)
[2023-02-06] MEDS: Atorvastatin Calcium 40 MG TAB PO SCH (20:05)
[2023-02-07 04:39] LABS: #Eosinphils 0.1 thou/uL (0.0-0.7); #Lymphocytes 1.1 thou/uL (1.20-3.40); #Monocytes 1.1 thou/uL (0.11-0.59); #Neutrophils 6.9 thou/uL (1.40-6.50); %Basophils 0.1 % (0.0-1.0); %Eosinophils 1.4 % (0.0-10.0); %Lymphocytes 12.2 % (21.0-51.0); %Monocytes 11.7 % (0.0-10.0); %Neutrophils 74.5 % (42.0-75.0); Hematocrit 31.2 % (36.0-47.0); Hemoglobin 10.2 g/dL (12.0-16.0); Mean Corpuscular HGB CONC 32.9 g/dL (32.0-36.0); Mean Corpuscular Hemoglobin 31.1 pg (27.0-31.0); Mean Corpuscular Volume 94.6 fl (78.0-98.0); Mean Platelet Volume 8.3 fL (7.4-10.4); Platelet Count 264 10x3/uL (130-400); Red Blood Cell (RBC) Count 3.29 mill/uL (4.20-5.40); White Blood Cell (WBC) Count 9.3 10x3/uL (4.8-10.8)
[2023-02-07 04:40] LABS: Phosphorus 2.3 mg/dL (2.3-4.7)
[2023-02-07 04:43] LABS: ALT (SGPT) 55 U/L (8-55); AST (SGOT) 44 U/L (5-34); Albumin 2.8 g/dL (3.5-5.0); Alkaline Phosphatase 90 U/L (40-110); Anion Gap 12 mmol/L (10-20); BUN (Urea Nitrogen) 22 mg/dL (9.8-20.1); Bilirubin, Total 0.2 mg/dL (0.2-1.2); Calc. Creatinine Clearance 97 mL/min (70-130); Calcium 9.3 mg/dL (7.8-10.44); Carbon Dioxide 26 mmol/L (22-29); Chloride 109 mmol/L (98-107); Estimated GFR 96; Globulin 3.2 g/dL (2.4-3.5); Glucose 328 mg/dL (70-105); Magnesium 1.8 mg/dL (1.6-2.6); Potassium 3.9 mmol/L (3.5-5.1); Sodium 143 mmol/L (136-145)
[2023-02-07] MEDS: HumaLOG 300 UNITS/3 ML VIAL SC PRN ×4 (05:00→22:36)
[2023-02-07] MEDS: Lisinopril 20 MG TAB PO SCH (07:25)
[2023-02-07] MEDS: Amlodipine 10 MG TAB PO SCH (07:25)
[2023-02-07] MEDS: levETIRAcetam 500 MG/5 ML VIAL SLOW IVP SCH ×2 (07:26→20:15)
[2023-02-07] MEDS: hydrALAZINE 10 MG TAB PER TUBE SCH ×3 (07:26→20:15)
[2023-02-07] MEDS: Pantoprazole 40 MG VIAL IVP SCH (07:26)
[2023-02-07] MEDS ORDERED: Magnesium 2 GM/50 ML(in water) 2 GM in Premix Bag 1 BAG IVPB SCH (08:00)
[2023-02-07] MEDS: Insulin NPH Human Isophane 100 UNITS/ML (10 ML VIAL) SC SCH ×2 (09:06→20:16)
[2023-02-07] MEDS: Lorazepam 2 MG/ML VIAL SLOW IVP PRN ×2 (11:11→15:19)
[2023-02-07] MEDS ORDERED: Bisacodyl 10 MG SUPP PR SCH (12:53)
[2023-02-07] MEDS: Acetaminophen 325 MG TAB PER TUBE PRN (20:15)
[2023-02-07] MEDS: Atorvastatin Calcium 40 MG TAB PO SCH (20:15)
[2023-02-07] MEDS: Polyethylene Glycol 3350 17 GM Packet PER TUBE SCH (21:50)
[2023-02-08 04:08] LABS: #Eosinphils 0.2 thou/uL (0.0-0.7); #Lymphocytes 1.7 thou/uL (1.20-3.40); #Monocytes 0.8 thou/uL (0.11-0.59); #Neutrophils 6.4 thou/uL (1.40-6.50); %Basophils 0.2 % (0.0-1.0); %Eosinophils 1.9 % (0.0-10.0); %Monocytes 9.1 % (0.0-10.0); %Neutrophils 69.8 % (42.0-75.0); Hematocrit 29.3 % (36.0-47.0); Hemoglobin 9.6 g/dL (12.0-16.0); Mean Corpuscular HGB CONC 32.8 g/dL (32.0-36.0); Mean Corpuscular Hemoglobin 31.1 pg (27.0-31.0); Mean Corpuscular Volume 94.7 fl (78.0-98.0); Mean Platelet Volume 8.3 fL (7.4-10.4); Platelet Count 279 10x3/uL (130-400); RBC Distribution Width 13.1 % (11.5-14.5); Red Blood Cell (RBC) Count 3.09 mill/uL (4.20-5.40); White Blood Cell (WBC) Count 9.2 10x3/uL (4.8-10.8)
[2023-02-08 04:31] LABS: ALT (SGPT) 88 U/L (8-55); AST (SGOT) 85 U/L (5-34); Albumin 2.8 g/dL (3.5-5.0); Alkaline Phosphatase 99 U/L (40-110); Anion Gap 11 mmol/L (10-20); BUN (Urea Nitrogen) 22 mg/dL (9.8-20.1); Bilirubin, Total 0.2 mg/dL (0.2-1.2); Calc. Creatinine Clearance 108 mL/min (70-130); Calcium 9.4 mg/dL (7.8-10.44); Carbon Dioxide 27 mmol/L (22-29); Chloride 110 mmol/L (98-107); Estimated GFR 104; Globulin 3.2 g/dL (2.4-3.5); Glucose 129 mg/dL (70-105); Magnesium 1.9 mg/dL (1.6-2.6); Phosphorus 2.9 mg/dL (2.3-4.7); Potassium 3.6 mmol/L (3.5-5.1); Sodium 144 mmol/L (136-145)
[2023-02-08] MEDS ORDERED: Albumin 25% 25 GM/100 ML BOT IVPB SCH (06:15)
[2023-02-08] MEDS ORDERED: Lactated Ringer's 500 ML IV SCH ×2 (06:15→06:30)
[2023-02-08 07:56] LABS: Base Excess (BEa) 3.2 mEq/L (-2.0 to +3.0); Calcium, Ionized (arterial) 1.25 mmol/L (1.12-1.30); Carboxyhemoglobin (COHb) 0.3 gm% (0.0-3.0); Hematocrit-ABG 28 % (36.0-47.0); Hemoglobin (Hb) 9.6 g/dL (12.0-16.0); O2 Tension (PaO2), arterial 98.3 mmHg (80.0-100.0)
[2023-02-08] MEDS ORDERED: Magnesium 2 GM/50 ML(in water) 2 GM in Premix Bag 1 BAG IVPB SCH (08:00)
[2023-02-08 08:03] LABS: Puncture Site RBA
[2023-02-08] MEDS: hydrALAZINE 10 MG TAB PER TUBE SCH ×3 (08:24→20:50)
[2023-02-08] MEDS: Amlodipine 10 MG TAB PO SCH (08:24)
[2023-02-08] MEDS: Polyethylene Glycol 3350 17 GM Packet PER TUBE SCH ×2 (08:24→20:50)
[2023-02-08] MEDS: Lisinopril 20 MG TAB PO SCH (08:24)
[2023-02-08] MEDS: Pantoprazole 40 MG VIAL IVP SCH (08:24)
[2023-02-08] MEDS: Insulin NPH Human Isophane 100 UNITS/ML (10 ML VIAL) SC SCH ×2 (08:25→21:49)
[2023-02-08] MEDS: Lorazepam 2 MG/ML VIAL SLOW IVP PRN (12:37)
[2023-02-08] MEDS: HumaLOG 300 UNITS/3 ML VIAL SC PRN ×2 (16:35→21:52)
[2023-02-08] MEDS: Atorvastatin Calcium 40 MG TAB PO SCH (20:50)
[2023-02-09] MEDS: Scopolamine 1.5 mg/72 hour Patch TD SCH (02:46)
[2023-02-09 03:56] LABS: #Eosinphils 0.2 thou/uL (0.0-0.7); #Lymphocytes 1.7 thou/uL (1.20-3.40); #Monocytes 0.9 thou/uL (0.11-0.59); #Neutrophils 6.9 thou/uL (1.40-6.50); %Basophils 0.1 % (0.0-1.0); %Eosinophils 1.9 % (0.0-10.0); %Monocytes 9.2 % (0.0-10.0); %Neutrophils 70.8 % (42.0-75.0); Hematocrit 29.2 % (36.0-47.0); Hemoglobin 10.4 g/dL (12.0-16.0); Mean Corpuscular HGB CONC 35.7 g/dL (32.0-36.0); Mean Corpuscular Hemoglobin 33.6 pg (27.0-31.0); Mean Corpuscular Volume 94.2 fl (78.0-98.0); Mean Platelet Volume 8.7 fL (7.4-10.4); Platelet Count 288 10x3/uL (130-400); White Blood Cell (WBC) Count 9.7 10x3/uL (4.8-10.8)
[2023-02-09 04:14] LABS: ALT (SGPT) 92 U/L (8-55); AST (SGOT) 44 U/L (5-34); Albumin 3.1 g/dL (3.5-5.0); Alkaline Phosphatase 116 U/L (40-110); Anion Gap 12 mmol/L (10-20); BUN (Urea Nitrogen) 20 mg/dL (9.8-20.1); Bilirubin, Total 0.2 mg/dL (0.2-1.2); Calc. Creatinine Clearance 104 mL/min (70-130); Calcium 9.5 mg/dL (7.8-10.44); Carbon Dioxide 29 mmol/L (22-29); Chloride 108 mmol/L (98-107); Estimated GFR 103; Globulin 3.1 g/dL (2.4-3.5); Glucose 207 mg/dL (70-105); Protein, Total 6.2 g/dL (6.0-8.3); Sodium 145 mmol/L (136-145)
[2023-02-09] MEDS: HumaLOG 300 UNITS/3 ML VIAL SC PRN ×2 (04:31→22:00)
[2023-02-09 06:40] LABS: Actual Bicarbonate (HCO3a) 29.7 mEq/L (22-28); Base Excess (BEa) 5.8 mEq/L (-2.0 to +3.0); CO2 Tension 40.2 mmHg (35.0-45.0); Calcium, Ionized (arterial) 1.24 mmol/L (1.12-1.30); Carboxyhemoglobin (COHb) 0.1 gm% (0.0-3.0); Hematocrit-ABG 29 % (36.0-47.0); O2 Tension (PaO2), arterial 91.4 mmHg (80.0-100.0); Potassium - ABG Lab 3.98 mmol/L (3.70-5.30); pH, Arterial 7.486 (7.35-7.45)
[2023-02-09 07:16] LABS: Puncture Site RBA
[2023-02-09] MEDS: Pantoprazole 40 MG VIAL IVP SCH (08:00)
[2023-02-09] MEDS: Polyethylene Glycol 3350 17 GM Packet PER TUBE SCH ×2 (08:00→21:51)
[2023-02-09] MEDS: Lisinopril 20 MG TAB PO SCH (08:00)
[2023-02-09] MEDS: hydrALAZINE 10 MG TAB PER TUBE SCH ×3 (08:00→21:51)
[2023-02-09] MEDS: Amlodipine 10 MG TAB PO SCH (08:00)
[2023-02-09] MEDS: Insulin NPH Human Isophane 100 UNITS/ML (10 ML VIAL) SC SCH ×2 (08:01→22:00)
[2023-02-09] MEDS: Lorazepam 2 MG/ML VIAL SLOW IVP PRN (09:44)
[2023-02-09] MEDS: Labetalol HCl 100 MG/20 ML VIAL SLOW IVP PRN (12:07)
[2023-02-09] MEDS ORDERED: Rocuronium Bromide 10 MG/ML (10ML VIAL) ONE (14:35)
[2023-02-09] MEDS: Oxacillin 2 GM in Sodium Chloride 0.9% 100 ML IVPB SCH ×2 (17:19→21:51)
[2023-02-09] MEDS: Atorvastatin Calcium 40 MG TAB PO SCH (21:51)
[2023-02-09] MEDS ORDERED: Vancomycin 1 GM in Premix Bag 1 BAG IVPB SCH (22:00)
[2023-02-09] MEDS ORDERED: VANCOMYCIN 1.75 GM/500 ML BAG 1.75 GM in Premix Bag 1 BAG IVPB SCH (22:30)
[2023-02-10] MEDS: Labetalol HCl 100 MG/20 ML VIAL SLOW IVP PRN ×2 (01:05→09:43)
[2023-02-10] MEDS: HumaLOG 300 UNITS/3 ML VIAL SC PRN ×3 (05:55→16:56)
[2023-02-10 07:43] LABS: #Eosinphils 0.1 thou/uL (0.0-0.7); #Lymphocytes 1.3 thou/uL (1.20-3.40); #Monocytes 0.9 thou/uL (0.11-0.59); #Neutrophils 9.2 thou/uL (1.40-6.50); %Basophils 0.4 % (0.0-1.0); %Eosinophils 1.1 % (0.0-10.0); %Lymphocytes 11.1 % (21.0-51.0); %Monocytes 7.6 % (0.0-10.0); %Neutrophils 79.8 % (42.0-75.0); Hematocrit 28.4 % (36.0-47.0); Hemoglobin 9.1 g/dL (12.0-16.0); Mean Corpuscular HGB CONC 32.2 g/dL (32.0-36.0); Mean Corpuscular Hemoglobin 30.1 pg (27.0-31.0); Mean Corpuscular Volume 93.5 fl (78.0-98.0); Mean Platelet Volume 8.1 fL (7.4-10.4); Platelet Count 345 10x3/uL (130-400); RBC Distribution Width 13.2 % (11.5-14.5); Red Blood Cell (RBC) Count 3.03 mill/uL (4.20-5.40); White Blood Cell (WBC) Count 11.5 10x3/uL (4.8-10.8)
[2023-02-10 08:10] LABS: ALT (SGPT) 63 U/L (8-55); AST (SGOT) 23 U/L (5-34); Albumin 2.9 g/dL (3.5-5.0); Alkaline Phosphatase 107 U/L (40-110); Anion Gap 15 mmol/L (10-20); BUN (Urea Nitrogen) 17 mg/dL (9.8-20.1); Bilirubin, Total 0.2 mg/dL (0.2-1.2); Calc. Creatinine Clearance 105 mL/min (70-130); Calcium 9.1 mg/dL (7.8-10.44); Carbon Dioxide 26 mmol/L (22-29); Chloride 107 mmol/L (98-107); Estimated GFR 102; Globulin 3.3 g/dL (2.4-3.5); Glucose 184 mg/dL (70-105); Protein, Total 6.2 g/dL (6.0-8.3); Sodium 144 mmol/L (136-145)
[2023-02-10] MEDS: Pantoprazole 40 MG VIAL IVP SCH (08:40)
[2023-02-10] MEDS: Lisinopril 20 MG TAB PO SCH (08:42)
[2023-02-10] MEDS: Amlodipine 10 MG TAB PO SCH (08:42)
[2023-02-10] MEDS: hydrALAZINE 10 MG TAB PER TUBE SCH ×3 (08:43→21:41)
[2023-02-10] MEDS: Polyethylene Glycol 3350 17 GM Packet PER TUBE SCH ×2 (08:43→21:49)
[2023-02-10] MEDS: Insulin NPH Human Isophane 100 UNITS/ML (10 ML VIAL) SC SCH ×2 (09:53→22:00)
[2023-02-10] MEDS: Vancomycin 1 GM in Premix Bag 1 BAG IVPB SCH ×2 (11:05→21:40)
[2023-02-10] MEDS: Morphine 2 MG/ML VIAL SLOW IVP PRN ×2 (11:41→22:16)
[2023-02-10] MEDS: hydrALAZINE 20 MG/ML VIAL SLOW IVP PRN (11:41)
[2023-02-10] MEDS ORDERED: Carvedilol 6.25 MG TAB PER TUBE SCH (12:15)
[2023-02-10] MEDS: Carvedilol 6.25 MG TAB PER TUBE SCH (16:49)
[2023-02-10] MEDS: Atorvastatin Calcium 40 MG TAB PO SCH (21:40)
[2023-02-11] MEDS: HumaLOG 300 UNITS/3 ML VIAL SC PRN ×2 (03:33→09:36)
[2023-02-11 04:14] LABS: INR-International Normal Ratio 1.1; PTT 27.8 sec (22.9-36.1); Prothrombin Time 14.2 sec (12.0-14.7)
[2023-02-11 04:32] LABS: ALT (SGPT) 46 U/L (8-55); AST (SGOT) 15 U/L (5-34); Albumin 2.8 g/dL (3.5-5.0); Alkaline Phosphatase 97 U/L (40-110); Anion Gap 11 mmol/L (10-20); BUN (Urea Nitrogen) 18 mg/dL (9.8-20.1); Bilirubin, Total 0.2 mg/dL (0.2-1.2); Calc. Creatinine Clearance 111 mL/min (70-130); Calcium 8.9 mg/dL (7.8-10.44); Carbon Dioxide 28 mmol/L (22-29); Chloride 105 mmol/L (98-107); Estimated GFR 103; Globulin 3.1 g/dL (2.4-3.5); Glucose 234 mg/dL (70-105); Potassium 4.1 mmol/L (3.5-5.1); Protein, Total 5.9 g/dL (6.0-8.3); Sodium 140 mmol/L (136-145)
[2023-02-11 04:46] LABS: HIV (1/2) Antibody/Antigen Non-Reactive (NonReactive); HIV 1/2 INDEX 0.25 S/CO (<1.00)
[2023-02-11 05:03] LABS: Band 5 % (5-11); Eosinophils 1 % (0-10); Hematocrit 26.1 % (36.0-47.0); Hemoglobin 8.9 g/dL (12.0-16.0); Lymphocytes 23 % (21-51); MDiff Complete? YES; Mean Corpuscular HGB CONC 33.9 g/dL (32.0-36.0); Mean Corpuscular Volume 94.3 fl (78.0-98.0); Mean Platelet Volume 8.2 fL (7.4-10.4); Monocytes 8 % (0-10); Neutrophil 63 % (42-75); Platelet Count 316 10x3/uL (130-400); RBC Distribution Width 12.9 % (11.5-14.5); Red Blood Cell (RBC) Count 2.77 mill/uL (4.20-5.40); White Blood Cell (WBC) Count 9.8 10x3/uL (4.8-10.8)
[2023-02-11 07:08] LABS: Actual Bicarbonate (HCO3a) 28.3 mEq/L (22-28); Base Excess (BEa) 4.3 mEq/L (-2.0 to +3.0); CO2 Tension 40.1 mmHg (35.0-45.0); Calcium, Ionized (arterial) 1.21 mmol/L (1.12-1.30); Hematocrit-ABG 32 % (36.0-47.0); Hemoglobin (Hb) 10.8 g/dL (12.0-16.0); Potassium - ABG Lab 4.02 mmol/L (3.70-5.30); pH, Arterial 7.467 (7.35-7.45)
[2023-02-11 07:10] LABS: ALV-art Gradient 128.425 mmHg (0-20); Puncture Site RRA
[2023-02-11] MEDS: Carvedilol 6.25 MG TAB PER TUBE SCH ×2 (09:20→16:31)
[2023-02-11] MEDS: Lisinopril 20 MG TAB PO SCH (09:20)
[2023-02-11] MEDS: Amlodipine 10 MG TAB PO SCH (09:20)
[2023-02-11] MEDS: hydrALAZINE 10 MG TAB PER TUBE SCH ×4 (09:21→21:19)
[2023-02-11] MEDS: Pantoprazole 40 MG VIAL IVP SCH (09:21)
[2023-02-11] MEDS: Insulin NPH Human Isophane 100 UNITS/ML (10 ML VIAL) SC SCH ×2 (09:22→21:27)
[2023-02-11] MEDS: Polyethylene Glycol 3350 17 GM Packet PER TUBE SCH ×2 (09:23→21:19)
[2023-02-11] MEDS: Vancomycin 1 GM in Premix Bag 1 BAG IVPB SCH ×2 (09:48→21:19)
[2023-02-11 10:50] LABS: Vancomycin, Trough 24.5 ug/mL
[2023-02-11] MEDS ORDERED: fentaNYL PF 100 MCG/2 ML SYRINGE ONE (13:49)
[2023-02-11] MEDS ORDERED: Midazolam HCl 2 mg/2 ml Vial ONE (13:49)
[2023-02-11] MEDS ORDERED: Bupivacaine/Epinephrine 0.25% 30 ML VIAL ONE (14:13)
[2023-02-11] MEDS ORDERED: Lidocaine 1% (PF) 30 ML VIAL ONE (14:13)
[2023-02-11] MEDS: Labetalol HCl 100 MG/20 ML VIAL SLOW IVP PRN (16:07)
[2023-02-11] MEDS: hydrALAZINE 20 MG/ML VIAL SLOW IVP PRN (16:30)
[2023-02-11] MEDS: Morphine 2 MG/ML VIAL SLOW IVP PRN (17:48)
[2023-02-11] MEDS: Atorvastatin Calcium 40 MG TAB PO SCH (21:19)
[2023-02-11 22:09] LABS: Vancomycin, Trough 12.4 ug/mL
[2023-02-11] MEDS ORDERED: Vancomycin 1 GM in Premix Bag 1 BAG IVPB SCH (22:45)
[2023-02-12] MEDS: Morphine 2 MG/ML VIAL SLOW IVP PRN ×2 (00:12→13:50)
[2023-02-12 05:01] LABS: #Eosinphils 0.1 thou/uL (0.0-0.7); #Lymphocytes 1.7 thou/uL (1.20-3.40); #Monocytes 0.6 thou/uL (0.11-0.59); #Neutrophils 7.6 thou/uL (1.40-6.50); %Basophils 0.3 % (0.0-1.0); %Lymphocytes 17.2 % (21.0-51.0); %Monocytes 5.6 % (0.0-10.0); %Neutrophils 75.9 % (42.0-75.0); Hematocrit 26.8 % (36.0-47.0); Mean Corpuscular HGB CONC 33.6 g/dL (32.0-36.0); Mean Corpuscular Hemoglobin 31.6 pg (27.0-31.0); Mean Corpuscular Volume 94.2 fl (78.0-98.0); Platelet Count 343 10x3/uL (130-400); RBC Distribution Width 12.8 % (11.5-14.5); Red Blood Cell (RBC) Count 2.85 mill/uL (4.20-5.40)
[2023-02-12 05:17] LABS: Anion Gap 11 mmol/L (10-20); BUN (Urea Nitrogen) 17 mg/dL (9.8-20.1); Calc. Creatinine Clearance 112 mL/min (70-130); Carbon Dioxide 29 mmol/L (22-29); Chloride 105 mmol/L (98-107); Potassium 3.8 mmol/L (3.5-5.1); Sodium 141 mmol/L (136-145)
[2023-02-12 05:18] LABS: ALT (SGPT) 47 U/L (8-55); AST (SGOT) 28 U/L (5-34); Albumin 2.7 g/dL (3.5-5.0); Alkaline Phosphatase 92 U/L (40-110); Bilirubin, Total 0.2 mg/dL (0.2-1.2); Calcium 8.7 mg/dL (7.8-10.44); Estimated GFR 103; Globulin 3.2 g/dL (2.4-3.5); Glucose 123 mg/dL (70-105); Protein, Total 5.9 g/dL (6.0-8.3)
[2023-02-12] MEDS: Scopolamine 1.5 mg/72 hour Patch TD SCH (05:23)
[2023-02-12] MEDS: Carvedilol 6.25 MG TAB PER TUBE SCH ×2 (08:32→17:32)
[2023-02-12] MEDS: hydrALAZINE 10 MG TAB PER TUBE SCH ×3 (09:06→21:20)
[2023-02-12] MEDS: Lisinopril 20 MG TAB PO SCH (09:06)
[2023-02-12] MEDS: Amlodipine 10 MG TAB PO SCH (09:06)
[2023-02-12] MEDS: Polyethylene Glycol 3350 17 GM Packet PER TUBE SCH ×2 (09:07→21:22)
[2023-02-12] MEDS: Pantoprazole 40 MG VIAL IVP SCH (09:07)
[2023-02-12] MEDS: Insulin NPH Human Isophane 100 UNITS/ML (10 ML VIAL) SC SCH ×2 (09:25→21:21)
[2023-02-12] MEDS: HumaLOG 300 UNITS/3 ML VIAL SC PRN ×3 (09:25→22:33)
[2023-02-12 09:39] LABS: Vancomycin, Trough 9.3 ug/mL
[2023-02-12] MEDS: Labetalol HCl 100 MG/20 ML VIAL SLOW IVP PRN ×3 (13:25→17:45)
[2023-02-12] MEDS ORDERED: VANCOMYCIN IVPB SCH (14:00)
[2023-02-12] MEDS ORDERED: SODIUM CHLORIDE 0.9% IVPB SCH (14:00)
[2023-02-12] MEDS: VANCOMYCIN 1.25 GM/250 ML BAG 1.25 GM in Premix Bag 1 BAG IVPB SCH (15:35)
[2023-02-12] MEDS: Atorvastatin Calcium 40 MG TAB PO SCH (21:20)
[2023-02-13 04:27] LABS: #Eosinphils 0.1 thou/uL (0.0-0.7); #Lymphocytes 1.5 thou/uL (1.20-3.40); #Monocytes 0.8 thou/uL (0.11-0.59); #Neutrophils 9.4 thou/uL (1.40-6.50); %Basophils 0.4 % (0.0-1.0); %Eosinophils 0.9 % (0.0-10.0); %Lymphocytes 12.4 % (21.0-51.0); %Monocytes 7.1 % (0.0-10.0); %Neutrophils 79.3 % (42.0-75.0); Hematocrit 27.5 % (36.0-47.0); Hemoglobin 9.1 g/dL (12.0-16.0); Mean Corpuscular HGB CONC 33.2 g/dL (32.0-36.0); Mean Corpuscular Hemoglobin 31.2 pg (27.0-31.0); Mean Corpuscular Volume 93.7 fl (78.0-98.0); Mean Platelet Volume 7.7 fL (7.4-10.4); Platelet Count 377 10x3/uL (130-400); RBC Distribution Width 12.7 % (11.5-14.5); Red Blood Cell (RBC) Count 2.93 mill/uL (4.20-5.40); White Blood Cell (WBC) Count 11.8 10x3/uL (4.8-10.8)
[2023-02-13] MEDS: VANCOMYCIN 1.25 GM/250 ML BAG 1.25 GM in Premix Bag 1 BAG IVPB SCH (04:32)
[2023-02-13] MEDS: HumaLOG 300 UNITS/3 ML VIAL SC PRN ×3 (04:33→21:46)
[2023-02-13 04:48] LABS: ALT (SGPT) 42 U/L (8-55); AST (SGOT) 20 U/L (5-34); Albumin 2.7 g/dL (3.5-5.0); Alkaline Phosphatase 96 U/L (40-110); Anion Gap 11 mmol/L (10-20); BUN (Urea Nitrogen) 17 mg/dL (9.8-20.1); Bilirubin, Total 0.2 mg/dL (0.2-1.2); Calc. Creatinine Clearance 103 mL/min (70-130); Calcium 8.5 mg/dL (7.8-10.44); Carbon Dioxide 28 mmol/L (22-29); Chloride 105 mmol/L (98-107); Estimated GFR 102; Globulin 3.1 g/dL (2.4-3.5); Glucose 198 mg/dL (70-105); Potassium 3.7 mmol/L (3.5-5.1); Protein, Total 5.8 g/dL (6.0-8.3); Sodium 140 mmol/L (136-145)
[2023-02-13] MEDS: Amlodipine 10 MG TAB PO SCH (09:28)
[2023-02-13] MEDS: Carvedilol 6.25 MG TAB PER TUBE SCH ×2 (09:28→16:20)
[2023-02-13] MEDS: hydrALAZINE 10 MG TAB PER TUBE SCH ×3 (09:28→20:31)
[2023-02-13] MEDS: Lisinopril 20 MG TAB PO SCH (09:29)
[2023-02-13] MEDS: Pantoprazole 40 MG VIAL IVP SCH (09:29)
[2023-02-13] MEDS: Insulin NPH Human Isophane 100 UNITS/ML (10 ML VIAL) SC SCH ×2 (09:30→21:44)
[2023-02-13] MEDS: Polyethylene Glycol 3350 17 GM Packet PER TUBE SCH ×2 (12:06→20:31)
[2023-02-13] MEDS: hydrALAZINE 20 MG/ML VIAL SLOW IVP PRN ×2 (13:19→22:48)
[2023-02-13] MEDS: Acetaminophen 325 MG TAB PER TUBE PRN (14:23)
[2023-02-13 15:25] LABS: Squamous Epithelial 0-3 HPF (0-3); WBC/HPF 21-50 HPF (0-3); Yeast-Budding 1+ HPF (None Seen)
[2023-02-13 15:35] LABS: Bacteria/HPF 1+ HPF (None Seen)
[2023-02-13] MEDS: Labetalol HCl 100 MG/20 ML VIAL SLOW IVP PRN ×2 (16:22→21:46)
[2023-02-13] MEDS: Atorvastatin Calcium 40 MG TAB PO SCH (20:31)
[2023-02-13] MEDS ORDERED: Labetalol HCl 100 MG/20 ML VIAL SLOW IVP SCH (23:30)
[2023-02-13] MEDS: cloNIDine 0.1 MG TAB PO PRN (23:35)
[2023-02-14] MEDS: Labetalol HCl 100 MG/20 ML VIAL SLOW IVP PRN (03:38)
[2023-02-14] MEDS: HumaLOG 300 UNITS/3 ML VIAL SC PRN ×2 (04:20→17:17)
[2023-02-14 04:42] LABS: Anion Gap 14 mmol/L (10-20); BUN (Urea Nitrogen) 14 mg/dL (9.8-20.1); Calc. Creatinine Clearance 102 mL/min (70-130); Calcium 8.9 mg/dL (7.8-10.44); Carbon Dioxide 27 mmol/L (22-29); Chloride 105 mmol/L (98-107); Estimated GFR 102; Glucose 261 mg/dL (70-105); Potassium 3.5 mmol/L (3.5-5.1); Sodium 142 mmol/L (136-145)
[2023-02-14 04:44] LABS: Band 8 % (5-11); Hematocrit 29.8 % (36.0-47.0); Hypochromia SLIGHT = 6-15 cells (100X) (0-5/hpf); Lymphocytes 10 % (21-51); MDiff Complete? YES; Mean Corpuscular HGB CONC 33.5 g/dL (32.0-36.0); Mean Corpuscular Hemoglobin 31.3 pg (27.0-31.0); Mean Corpuscular Volume 93.6 fl (78.0-98.0); Mean Platelet Volume 7.5 fL (7.4-10.4); Monocytes 4 % (0-10); Neutrophil 78 % (42-75); Platelet Adequacy Comment Appears Adequate; Platelet Count 399 10x3/uL (130-400); Red Blood Cell (RBC) Count 3.18 mill/uL (4.20-5.40); White Blood Cell (WBC) Count 18.7 10x3/uL (4.8-10.8)
[2023-02-14] MEDS: hydrALAZINE 20 MG/ML VIAL SLOW IVP PRN ×2 (06:17→13:15)
[2023-02-14] MEDS: Lisinopril 20 MG TAB PO SCH (07:42)
[2023-02-14] MEDS: hydrALAZINE 10 MG TAB PER TUBE SCH ×3 (07:42→21:00)
[2023-02-14] MEDS: Polyethylene Glycol 3350 17 GM Packet PER TUBE SCH ×2 (07:43→21:00)
[2023-02-14] MEDS: Carvedilol 6.25 MG TAB PER TUBE SCH (07:43)
[2023-02-14] MEDS: Amlodipine 10 MG TAB PO SCH (07:43)
[2023-02-14] MEDS: Pantoprazole 40 MG VIAL IVP SCH (07:43)
[2023-02-14] MEDS: Insulin NPH Human Isophane 100 UNITS/ML (10 ML VIAL) SC SCH ×2 (10:45→20:59)
[2023-02-14] MEDS: cloNIDine 0.1 MG TAB PO SCH ×2 (10:45→21:00)
[2023-02-14] MEDS: Acetaminophen 325 MG TAB PER TUBE PRN ×2 (13:15→22:01)
[2023-02-14 13:47] VITALS: BMI 25.7
[2023-02-14] MEDS ORDERED: Ibuprofen 100 MG/5 ML UDCUP PER TUBE SCH (16:15)
[2023-02-14] MEDS: Carvedilol 25 MG TAB PO SCH (16:33)
[2023-02-14] MEDS: Atorvastatin Calcium 40 MG TAB PO SCH (20:59)
[2023-02-14] MEDS ORDERED: cloNIDine 0.1 MG TAB PO SCH (21:00)
[2023-02-15] MEDS: HumaLOG 300 UNITS/3 ML VIAL SC PRN (00:16)
[2023-02-15] MEDS: Scopolamine 1.5 mg/72 hour Patch TD SCH (01:35)
[2023-02-15 04:12] LABS: Anion Gap 13 mmol/L (10-20); BUN (Urea Nitrogen) 20 mg/dL (9.8-20.1); Calc. Creatinine Clearance 111 mL/min (70-130); Calcium 8.9 mg/dL (7.8-10.44); Carbon Dioxide 28 mmol/L (22-29); Chloride 106 mmol/L (98-107); Estimated GFR 103; Glucose 123 mg/dL (70-105); Potassium 3.4 mmol/L (3.5-5.1); Sodium 144 mmol/L (136-145)
[2023-02-15 04:20] LABS: Band 2 % (5-11); Eosinophils 1 % (0-10); Hematocrit 28.7 % (36.0-47.0); Hemoglobin 9.5 g/dL (12.0-16.0); Lymphocytes 12 % (21-51); MDiff Complete? YES; Mean Corpuscular HGB CONC 32.9 g/dL (32.0-36.0); Mean Corpuscular Hemoglobin 31.1 pg (27.0-31.0); Mean Corpuscular Volume 94.7 fl (78.0-98.0); Mean Platelet Volume 7.4 fL (7.4-10.4); Monocytes 5 % (0-10); Neutrophil 80 % (42-75); Platelet Adequacy Comment Appears Increased; Platelet Count 427 10x3/uL (130-400); RBC Morphology Normal; Red Blood Cell (RBC) Count 3.04 mill/uL (4.20-5.40)
[2023-02-15] MEDS ORDERED: Potassium Chloride 20 MEQ TAB PO SCH (05:00)
[2023-02-15] MEDS: Carvedilol 25 MG TAB PO SCH ×2 (08:37→19:31)
[2023-02-15] MEDS: hydrALAZINE 10 MG TAB PER TUBE SCH ×3 (08:37→20:55)
[2023-02-15] MEDS: Amlodipine 10 MG TAB PO SCH (08:37)
[2023-02-15] MEDS: cloNIDine 0.1 MG TAB PO SCH ×2 (08:37→20:55)
[2023-02-15] MEDS: Polyethylene Glycol 3350 17 GM Packet PER TUBE SCH ×2 (08:38→20:55)
[2023-02-15] MEDS: Lisinopril 20 MG TAB PO SCH (08:38)
[2023-02-15] MEDS: Insulin NPH Human Isophane 100 UNITS/ML (10 ML VIAL) SC SCH ×2 (08:38→20:56)
[2023-02-15] MEDS: Lansoprazole 15 MG/5 ML (BATCHED)UDCUP PER TUBE SCH (10:43)
[2023-02-15] MEDS: Atorvastatin Calcium 40 MG TAB PO SCH (20:55)
[2023-02-16] MEDS: cloNIDine 0.1 MG TAB PO PRN (04:34)
[2023-02-16] MEDS: HumaLOG 300 UNITS/3 ML VIAL SC PRN ×3 (05:31→19:25)
[2023-02-16 06:07] LABS: #Basophils 0.1 thou/uL (0.0-0.2); #Eosinphils 0.1 thou/uL (0.0-0.7); #Lymphocytes 1.7 thou/uL (1.20-3.40); #Monocytes 0.7 thou/uL (0.11-0.59); #Neutrophils 11.7 thou/uL (1.40-6.50); %Basophils 0.4 % (0.0-1.0); %Eosinophils 0.9 % (0.0-10.0); %Monocytes 4.8 % (0.0-10.0); %Neutrophils 81.9 % (42.0-75.0); Hematocrit 28.3 % (36.0-47.0); Hemoglobin 9.5 g/dL (12.0-16.0); Mean Corpuscular HGB CONC 33.5 g/dL (32.0-36.0); Mean Corpuscular Hemoglobin 31.5 pg (27.0-31.0); Mean Corpuscular Volume 93.9 fl (78.0-98.0); Mean Platelet Volume 7.4 fL (7.4-10.4); Platelet Count 423 10x3/uL (130-400); Red Blood Cell (RBC) Count 3.02 mill/uL (4.20-5.40); White Blood Cell (WBC) Count 14.3 10x3/uL (4.8-10.8)
[2023-02-16 06:43] LABS: Anion Gap 13 mmol/L (10-20); BUN (Urea Nitrogen) 19 mg/dL (9.8-20.1); Calc. Creatinine Clearance 107 mL/min (70-130); Calcium 8.8 mg/dL (7.8-10.44); Carbon Dioxide 27 mmol/L (22-29); Chloride 104 mmol/L (98-107); Estimated GFR 103; Glucose 249 mg/dL (70-105); Potassium 3.6 mmol/L (3.5-5.1); Sodium 140 mmol/L (136-145)
[2023-02-16] MEDS ORDERED: Pantoprazole 40 MG GRANULES PACKET PER TUBE SCH (09:00)
[2023-02-16] MEDS: Lisinopril 20 MG TAB PO SCH (09:55)
[2023-02-16] MEDS: cloNIDine 0.1 MG TAB PO SCH ×2 (09:55→20:28)
[2023-02-16] MEDS: hydrALAZINE 10 MG TAB PER TUBE SCH ×3 (09:55→20:28)
[2023-02-16] MEDS: Amlodipine 10 MG TAB PO SCH (09:56)
[2023-02-16] MEDS: Insulin NPH Human Isophane 100 UNITS/ML (10 ML VIAL) SC SCH ×2 (09:56→20:29)
[2023-02-16] MEDS: Carvedilol 25 MG TAB PO SCH ×2 (09:56→15:50)
[2023-02-16] MEDS: Polyethylene Glycol 3350 17 GM Packet PER TUBE SCH ×2 (09:57→20:29)
[2023-02-16] MEDS: Lansoprazole 15 MG/5 ML (BATCHED)UDCUP PER TUBE SCH (09:57)
[2023-02-16] MEDS: Atorvastatin Calcium 40 MG TAB PO SCH (20:28)
[2023-02-17] MEDS: Acetaminophen 325 MG TAB PER TUBE PRN ×2 (04:28→09:10)
[2023-02-17] MEDS: cloNIDine 0.1 MG TAB PO PRN (04:30)
[2023-02-17] MEDS: HumaLOG 300 UNITS/3 ML VIAL SC PRN ×3 (05:38→19:04)
[2023-02-17 06:13] LABS: Anion Gap 14 mmol/L (10-20); BUN (Urea Nitrogen) 17 mg/dL (9.8-20.1); Calc. Creatinine Clearance 107 mL/min (70-130); Calcium 8.9 mg/dL (7.8-10.44); Carbon Dioxide 27 mmol/L (22-29); Chloride 104 mmol/L (98-107); Estimated GFR 103; Glucose 170 mg/dL (70-105); Potassium 3.8 mmol/L (3.5-5.1); Sodium 141 mmol/L (136-145)
[2023-02-17 06:29] LABS: Hematocrit 27.5 % (36.0-47.0); Hemoglobin 9.5 g/dL (12.0-16.0); Mean Corpuscular HGB CONC 34.5 g/dL (32.0-36.0); Mean Corpuscular Hemoglobin 32.1 pg (27.0-31.0); Mean Corpuscular Volume 93.1 fl (78.0-98.0); Mean Platelet Volume 7.6 fL (7.4-10.4); Platelet Count 429 10x3/uL (130-400); RBC Distribution Width 13.1 % (11.5-14.5); Red Blood Cell (RBC) Count 2.95 mill/uL (4.20-5.40); White Blood Cell (WBC) Count 18.3 10x3/uL (4.8-10.8)
[2023-02-17 08:00] LABS: Band 3 % (5-11); Lymphocytes 12 % (21-51); MDiff Complete? YES; Monocytes 3 % (0-10); Neutrophil 82 % (42-75); Platelet Adequacy Comment Appears Increased; Polychromasia SLIGHT = 2-3 cells (100X) (0-2/hpf)
[2023-02-17] MEDS: Insulin NPH Human Isophane 100 UNITS/ML (10 ML VIAL) SC SCH ×2 (09:06→23:12)
[2023-02-17] MEDS: Polyethylene Glycol 3350 17 GM Packet PER TUBE SCH ×2 (09:06→23:10)
[2023-02-17] MEDS: Carvedilol 25 MG TAB PO SCH ×2 (09:06→16:18)
[2023-02-17] MEDS: Amlodipine 10 MG TAB PO SCH (09:06)
[2023-02-17] MEDS: Lansoprazole 15 MG/5 ML (BATCHED)UDCUP PER TUBE SCH (09:06)
[2023-02-17] MEDS: hydrALAZINE 10 MG TAB PER TUBE SCH (09:06)
[2023-02-17] MEDS: Lisinopril 20 MG TAB PO SCH (09:07)
[2023-02-17] MEDS: cloNIDine 0.1 MG TAB PO SCH ×2 (09:07→23:10)
[2023-02-17] MEDS ORDERED: Ipratropium/Albuterol 3 ML NEB NEB PRN (13:14)
[2023-02-17] MEDS: Sodium Chloride 0.9% 1,000 ML IV SCH (13:30)
[2023-02-17] MEDS: hydrALAZINE 25 MG TAB PO SCH ×2 (16:17→23:11)
[2023-02-17] MEDS ORDERED: Vancomycin 1.5 GRAM/300 ML BAG 1.5 GM in Premix Bag 1 BAG IVPB SCH (17:30)
[2023-02-17] MEDS: Guaifenesin DM 100-10/5 ML UDCUP PO SCH ×2 (17:42→23:10)
[2023-02-17] MEDS: Ipratropium/Albuterol 3 ML NEB NEB SCH (18:47)
[2023-02-17] MEDS ORDERED: Meropenem 1 GM in Sodium Chloride 0.9% 100 ML IVPB SCH (20:00)
[2023-02-17] MEDS: Atorvastatin Calcium 40 MG TAB PO SCH (23:12)
[2023-02-18] MEDS: Ipratropium/Albuterol 3 ML NEB NEB SCH ×4 (00:30→18:54)
[2023-02-18] MEDS: HumaLOG 300 UNITS/3 ML VIAL SC PRN ×3 (01:19→19:41)
[2023-02-18] MEDS: Scopolamine 1.5 mg/72 hour Patch TD SCH (01:24)
[2023-02-18] MEDS: Meropenem 1 GM in Sodium Chloride 0.9% 100 ML IVPB SCH ×3 (04:09→22:31)
[2023-02-18] MEDS: Sodium Chloride 0.9% 1,000 ML IV SCH ×2 (04:09→20:05)
[2023-02-18 04:32] LABS: Anion Gap 14 mmol/L (10-20); BUN (Urea Nitrogen) 17 mg/dL (9.8-20.1); Calc. Creatinine Clearance 107 mL/min (70-130); Calcium 8.7 mg/dL (7.8-10.44); Carbon Dioxide 25 mmol/L (22-29); Chloride 106 mmol/L (98-107); Estimated GFR 103; Glucose 236 mg/dL (70-105); Potassium 3.7 mmol/L (3.5-5.1); Sodium 141 mmol/L (136-145)
[2023-02-18 04:33] LABS: Hematocrit 28.7 % (36.0-47.0); Hemoglobin 9.6 g/dL (12.0-16.0); Mean Corpuscular HGB CONC 33.5 g/dL (32.0-36.0); Mean Corpuscular Hemoglobin 31.3 pg (27.0-31.0); Mean Corpuscular Volume 93.5 fl (78.0-98.0); Mean Platelet Volume 7.6 fL (7.4-10.4); Platelet Count 384 10x3/uL (130-400); RBC Distribution Width 13.3 % (11.5-14.5); Red Blood Cell (RBC) Count 3.08 mill/uL (4.20-5.40); White Blood Cell (WBC) Count 20.9 10x3/uL (4.8-10.8)
[2023-02-18] MEDS ORDERED: Pantoprazole 40 MG VIAL IVP SCH (04:45)
[2023-02-18 05:01] LABS: Band 10 % (5-11); Hypochromia SLIGHT = 6-15 cells (100X) (0-5/hpf); Lymphocytes 16 % (21-51); MDiff Complete? YES; Monocytes 14 % (0-10); Neutrophil 60 % (42-75); Platelet Adequacy Comment Appears Adequate
[2023-02-18] MEDS: Guaifenesin DM 100-10/5 ML UDCUP PO SCH ×5 (07:21→21:34)
[2023-02-18] MEDS: VANCOMYCIN 1.25 GM/250 ML BAG 1.25 GM in Premix Bag 1 BAG IVPB SCH ×2 (07:21→20:09)
[2023-02-18] MEDS: Insulin NPH Human Isophane 100 UNITS/ML (10 ML VIAL) SC SCH ×2 (09:00→21:36)
[2023-02-18] MEDS: Amlodipine 10 MG TAB PO SCH (10:22)
[2023-02-18] MEDS: Carvedilol 25 MG TAB PO SCH ×2 (10:22→19:41)
[2023-02-18] MEDS: Lisinopril 20 MG TAB PO SCH (10:22)
[2023-02-18] MEDS: hydrALAZINE 25 MG TAB PO SCH ×3 (10:22→21:35)
[2023-02-18] MEDS: Polyethylene Glycol 3350 17 GM Packet PER TUBE SCH ×2 (10:22→21:35)
[2023-02-18] MEDS: cloNIDine 0.1 MG TAB PO SCH ×2 (10:23→21:36)
[2023-02-18] MEDS: Pantoprazole 40 MG VIAL IVP SCH ×2 (10:24→21:45)
[2023-02-18] MEDS: Atorvastatin Calcium 40 MG TAB PO SCH (21:35)
[2023-02-18] MEDS: Acetaminophen 325 MG TAB PER TUBE PRN (21:58)
[2023-02-19] MEDS: Ipratropium/Albuterol 3 ML NEB NEB SCH ×4 (00:20→19:31)
[2023-02-19] MEDS: HumaLOG 300 UNITS/3 ML VIAL SC PRN ×4 (02:19→18:52)
[2023-02-19] MEDS: Sodium Chloride 0.9% 1,000 ML IV SCH ×2 (04:44→17:53)
[2023-02-19] MEDS: Meropenem 1 GM in Sodium Chloride 0.9% 100 ML IVPB SCH (04:44)
[2023-02-19] MEDS: Guaifenesin DM 100-10/5 ML UDCUP PO SCH ×5 (04:52→21:25)
[2023-02-19 04:55] LABS: Anion Gap 13 mmol/L (10-20); BUN (Urea Nitrogen) 19 mg/dL (9.8-20.1); Calc. Creatinine Clearance 107 mL/min (70-130); Calcium 8.5 mg/dL (7.8-10.44); Carbon Dioxide 26 mmol/L (22-29); Chloride 107 mmol/L (98-107); Estimated GFR 103; Glucose 223 mg/dL (70-105); Potassium 3.6 mmol/L (3.5-5.1); Sodium 142 mmol/L (136-145)
[2023-02-19 05:08] LABS: Band 7 % (5-11); Hematocrit 27.5 % (36.0-47.0); Hemoglobin 9.1 g/dL (12.0-16.0); Lymphocytes 5 % (21-51); MDiff Complete? YES; Mean Corpuscular HGB CONC 33.1 g/dL (32.0-36.0); Mean Corpuscular Hemoglobin 30.9 pg (27.0-31.0); Mean Corpuscular Volume 93.2 fl (78.0-98.0); Mean Platelet Volume 7.2 fL (7.4-10.4); Monocytes 2 % (0-10); Neutrophil 85 % (42-75); Platelet Adequacy Comment Appears Adequate; Platelet Count 359 10x3/uL (130-400); RBC Morphology Normal; Red Blood Cell (RBC) Count 2.94 mill/uL (4.20-5.40); White Blood Cell (WBC) Count 18.4 10x3/uL (4.8-10.8)
[2023-02-19 05:35] LABS: Vancomycin, Trough 16.7 ug/mL
[2023-02-19] MEDS: VANCOMYCIN 1.25 GM/250 ML BAG 1.25 GM in Premix Bag 1 BAG IVPB SCH (05:59)
[2023-02-19] MEDS: cloNIDine 0.1 MG TAB PO SCH ×2 (09:27→21:26)
[2023-02-19] MEDS: Lisinopril 20 MG TAB PO SCH (09:27)
[2023-02-19] MEDS: Amlodipine 10 MG TAB PO SCH (09:27)
[2023-02-19] MEDS: Carvedilol 25 MG TAB PO SCH ×2 (09:27→17:53)
[2023-02-19] MEDS: Insulin NPH Human Isophane 100 UNITS/ML (10 ML VIAL) SC SCH ×2 (09:28→21:26)
[2023-02-19] MEDS: Polyethylene Glycol 3350 17 GM Packet PER TUBE SCH ×2 (09:29→21:25)
[2023-02-19] MEDS: hydrALAZINE 25 MG TAB PO SCH ×3 (10:38→21:25)
[2023-02-19] MEDS: Pantoprazole 40 MG VIAL IVP SCH ×2 (10:38→21:26)
[2023-02-19] MEDS: cefTRIAXone\\ROCEPHIN 1 GM in Sodium Chloride 0.9% 100 ML IVPB SCH (11:54)
[2023-02-19] MEDS: Atorvastatin Calcium 40 MG TAB PO SCH (21:25)
[2023-02-20] MEDS: Ipratropium/Albuterol 3 ML NEB NEB SCH ×4 (00:03→18:59)
[2023-02-20] MEDS: HumaLOG 300 UNITS/3 ML VIAL SC PRN ×2 (01:09→18:46)
[2023-02-20] MEDS: Guaifenesin DM 100-10/5 ML UDCUP PO SCH ×5 (05:23→21:04)
[2023-02-20 08:43] LABS: #Eosinphils 0.2 thou/uL (0.0-0.7); #Lymphocytes 1.7 thou/uL (1.20-3.40); #Monocytes 0.9 thou/uL (0.11-0.59); #Neutrophils 11.5 thou/uL (1.40-6.50); %Eosinophils 1.3 % (0.0-10.0); %Lymphocytes 11.9 % (21.0-51.0); %Monocytes 6.5 % (0.0-10.0); %Neutrophils 80.3 % (42.0-75.0); Hematocrit 27.7 % (36.0-47.0); Hemoglobin 9.2 g/dL (12.0-16.0); Mean Corpuscular HGB CONC 33.2 g/dL (32.0-36.0); Mean Corpuscular Hemoglobin 31.2 pg (27.0-31.0); Mean Corpuscular Volume 94.1 fl (78.0-98.0); Mean Platelet Volume 7.7 fL (7.4-10.4); Platelet Count 367 10x3/uL (130-400); RBC Distribution Width 13.2 % (11.5-14.5); Red Blood Cell (RBC) Count 2.95 mill/uL (4.20-5.40); White Blood Cell (WBC) Count 14.4 10x3/uL (4.8-10.8)
[2023-02-20] MEDS: Sodium Chloride 0.9% 1,000 ML IV SCH ×2 (08:47→21:03)
[2023-02-20] MEDS: hydrALAZINE 25 MG TAB PO SCH ×3 (08:48→21:01)
[2023-02-20] MEDS: Amlodipine 10 MG TAB PO SCH (08:48)
[2023-02-20] MEDS: Insulin NPH Human Isophane 100 UNITS/ML (10 ML VIAL) SC SCH ×2 (08:49→21:03)
[2023-02-20] MEDS: Carvedilol 25 MG TAB PO SCH ×2 (08:49→17:48)
[2023-02-20] MEDS: Lisinopril 20 MG TAB PO SCH (08:49)
[2023-02-20] MEDS: cloNIDine 0.1 MG TAB PO SCH ×2 (08:49→21:02)
[2023-02-20] MEDS: Polyethylene Glycol 3350 17 GM Packet PER TUBE SCH ×2 (08:50→21:03)
[2023-02-20] MEDS: Pantoprazole 40 MG VIAL IVP SCH ×2 (08:50→21:03)
[2023-02-20 08:58] LABS: Anion Gap 13 mmol/L (10-20); BUN (Urea Nitrogen) 17 mg/dL (9.8-20.1); Calc. Creatinine Clearance 122 mL/min (70-130); Calcium 8.6 mg/dL (7.8-10.44); Carbon Dioxide 25 mmol/L (22-29); Chloride 107 mmol/L (98-107); Estimated GFR 106; Glucose 97 mg/dL (70-105); Potassium 3.7 mmol/L (3.5-5.1); Sodium 141 mmol/L (136-145)
[2023-02-20] MEDS: cefTRIAXone\\ROCEPHIN 1 GM in Sodium Chloride 0.9% 100 ML IVPB SCH (11:24)
[2023-02-20] MEDS: Fluconazole 100 MG TAB PER TUBE SCH (14:32)
[2023-02-20] MEDS: Atorvastatin Calcium 40 MG TAB PO SCH (21:01)
[2023-02-20] MEDS: Cefdinir 125 MG/5 ML Oral Suspension PER TUBE SCH (21:02)
[2023-02-21] MEDS: Ipratropium/Albuterol 3 ML NEB NEB SCH ×5 (01:56→23:52)
[2023-02-21] MEDS: Scopolamine 1.5 mg/72 hour Patch TD SCH (03:42)
[2023-02-21 05:27] LABS: Anion Gap 14 mmol/L (10-20); BUN (Urea Nitrogen) 18 mg/dL (9.8-20.1); Calc. Creatinine Clearance 118 mL/min (70-130); Calcium 8.7 mg/dL (7.8-10.44); Carbon Dioxide 23 mmol/L (22-29); Chloride 108 mmol/L (98-107); Estimated GFR 105; Glucose 196 mg/dL (70-105); Hematocrit 29.5 % (36.0-47.0); Hemoglobin 8.7 g/dL (12.0-16.0); Mean Corpuscular HGB CONC 29.4 g/dL (32.0-36.0); Mean Corpuscular Hemoglobin 27.9 pg (27.0-31.0); Mean Corpuscular Volume 94.8 fl (78.0-98.0); Mean Platelet Volume 7.1 fL (7.4-10.4); Platelet Count 378 10x3/uL (130-400); RBC Distribution Width 13.2 % (11.5-14.5); Red Blood Cell (RBC) Count 3.11 mill/uL (4.20-5.40); Sodium 141 mmol/L (136-145)
[2023-02-21] MEDS: cloNIDine 0.1 MG TAB PO PRN (05:53)
[2023-02-21] MEDS: Guaifenesin DM 100-10/5 ML UDCUP PO SCH ×5 (05:53→22:07)
[2023-02-21] MEDS: HumaLOG 300 UNITS/3 ML VIAL SC PRN (05:53)
[2023-02-21] MEDS ORDERED: hydrALAZINE 25 MG TAB PO SCH (06:45)
[2023-02-21] MEDS: Insulin NPH Human Isophane 100 UNITS/ML (10 ML VIAL) SC SCH ×2 (08:10→21:13)
[2023-02-21] MEDS: Lisinopril 20 MG TAB PO SCH ×2 (08:12→22:08)
[2023-02-21] MEDS: Amlodipine 10 MG TAB PO SCH (08:12)
[2023-02-21] MEDS: Carvedilol 25 MG TAB PO SCH ×2 (08:12→17:53)
[2023-02-21] MEDS: Polyethylene Glycol 3350 17 GM Packet PO SCH (08:13)
[2023-02-21] MEDS: cloNIDine 0.1 MG TAB PO SCH ×3 (08:14→22:07)
[2023-02-21] MEDS: Cefdinir 125 MG/5 ML Oral Suspension PER TUBE SCH ×2 (08:16→22:07)
[2023-02-21 09:16] LABS: #Eosinphils 0.2 thou/uL (0.0-0.7); #Lymphocytes 1.7 thou/uL (1.20-3.40); #Monocytes 0.8 thou/uL (0.11-0.59); #Neutrophils 8.4 thou/uL (1.40-6.50); %Basophils 0.4 % (0.0-1.0); %Eosinophils 1.7 % (0.0-10.0); %Lymphocytes 15.2 % (21.0-51.0); %Monocytes 7.1 % (0.0-10.0); %Neutrophils 75.6 % (42.0-75.0); Hypochromia SLIGHT = 6-15 cells (100X) (0-5/hpf); MDiff Complete? YES; Platelet Adequacy Comment Appears Adequate; Polychromasia SLIGHT = 2-3 cells (100X) (0-2/hpf); White Blood Cell (WBC) Count 11.1 10x3/uL (4.8-10.8)
[2023-02-21] MEDS: hydrALAZINE 25 MG TAB PO SCH ×2 (14:45→22:08)
[2023-02-21] MEDS: Furosemide 20 MG/2 ML VIAL SLOW IVP SCH (14:45)
[2023-02-21] MEDS: Fluconazole 100 MG TAB PER TUBE SCH (17:53)
[2023-02-21] MEDS: Atorvastatin Calcium 40 MG TAB PO SCH (22:09)
[2023-02-21] MEDS: Acetaminophen 325 MG TAB PER TUBE PRN (22:59)
[2023-02-22 05:14] LABS: #Eosinphils 0.1 thou/uL (0.0-0.7); #Lymphocytes 1.6 thou/uL (1.20-3.40); #Monocytes 0.6 thou/uL (0.11-0.59); #Neutrophils 6.7 thou/uL (1.40-6.50); %Basophils 0.3 % (0.0-1.0); %Eosinophils 1.5 % (0.0-10.0); %Lymphocytes 17.6 % (21.0-51.0); %Monocytes 6.5 % (0.0-10.0); %Neutrophils 74.1 % (42.0-75.0); Hematocrit 29.5 % (36.0-47.0); Hemoglobin 9.5 g/dL (12.0-16.0); Mean Corpuscular HGB CONC 32.3 g/dL (32.0-36.0); Mean Corpuscular Hemoglobin 30.2 pg (27.0-31.0); Mean Corpuscular Volume 93.5 fl (78.0-98.0); Mean Platelet Volume 6.9 fL (7.4-10.4); Platelet Count 342 10x3/uL (130-400); Red Blood Cell (RBC) Count 3.16 mill/uL (4.20-5.40)
[2023-02-22 05:35] LABS: Anion Gap 10 mmol/L (10-20); BUN (Urea Nitrogen) 15 mg/dL (9.8-20.1); Calc. Creatinine Clearance 114 mL/min (70-130); Calcium 8.8 mg/dL (7.8-10.44); Carbon Dioxide 27 mmol/L (22-29); Chloride 105 mmol/L (98-107); Estimated GFR 104; Glucose 144 mg/dL (70-105); Sodium 138 mmol/L (136-145)
[2023-02-22] MEDS: Furosemide 20 MG/2 ML VIAL SLOW IVP SCH ×2 (07:24→15:04)
[2023-02-22] MEDS: Guaifenesin DM 100-10/5 ML UDCUP PO SCH ×5 (07:24→21:06)
[2023-02-22] MEDS: Polyethylene Glycol 3350 17 GM Packet PO SCH (08:35)
[2023-02-22] MEDS: Cefdinir 125 MG/5 ML Oral Suspension PER TUBE SCH ×2 (08:37→21:00)
[2023-02-22] MEDS: Lisinopril 20 MG TAB PO SCH ×2 (08:38→21:01)
[2023-02-22] MEDS: Carvedilol 25 MG TAB PO SCH ×2 (08:38→16:27)
[2023-02-22] MEDS: hydrALAZINE 25 MG TAB PO SCH ×3 (08:38→21:00)
[2023-02-22] MEDS: cloNIDine 0.1 MG TAB PO SCH ×3 (08:38→21:01)
[2023-02-22] MEDS: Amlodipine 10 MG TAB PO SCH (08:38)
[2023-02-22] MEDS: Insulin NPH Human Isophane 100 UNITS/ML (10 ML VIAL) SC SCH ×2 (08:39→21:02)
[2023-02-22] MEDS: Albuterol 200 PUFF (6.7GM INHALER) INH SCH ×4 (13:06→23:25)
[2023-02-22] MEDS: Ipratropium 200 Puff Oral Inhaler INH SCH ×4 (13:07→23:25)
[2023-02-22] MEDS ORDERED: Lansoprazole 15 MG/5 ML (BATCHED)UDCUP PER TUBE SCH (15:00)
[2023-02-22] MEDS: Fluconazole 100 MG TAB PER TUBE SCH (15:04)
[2023-02-22] MEDS: Atorvastatin Calcium 40 MG TAB PO SCH (20:59)
[2023-02-23 05:14] LABS: #Eosinphils 0.1 thou/uL (0.0-0.7); #Lymphocytes 1.7 thou/uL (1.20-3.40); #Monocytes 0.5 thou/uL (0.11-0.59); #Neutrophils 6.8 thou/uL (1.40-6.50); %Basophils 0.3 % (0.0-1.0); %Eosinophils 1.5 % (0.0-10.0); %Lymphocytes 18.2 % (21.0-51.0); %Monocytes 5.1 % (0.0-10.0); %Neutrophils 74.9 % (42.0-75.0); Hematocrit 26.1 % (36.0-47.0); Hemoglobin 8.5 g/dL (12.0-16.0); Mean Corpuscular HGB CONC 32.6 g/dL (32.0-36.0); Mean Corpuscular Hemoglobin 30.3 pg (27.0-31.0); Mean Corpuscular Volume 93.1 fl (78.0-98.0); Mean Platelet Volume 7.3 fL (7.4-10.4); Platelet Count 346 10x3/uL (130-400); RBC Distribution Width 13.1 % (11.5-14.5); White Blood Cell (WBC) Count 9.1 10x3/uL (4.8-10.8)
[2023-02-23 05:37] LABS: Anion Gap 11 mmol/L (10-20); BUN (Urea Nitrogen) 19 mg/dL (9.8-20.1); Calc. Creatinine Clearance 114 mL/min (70-130); Calcium 8.6 mg/dL (7.8-10.44); Carbon Dioxide 28 mmol/L (22-29); Chloride 101 mmol/L (98-107); Estimated GFR 104; Glucose 188 mg/dL (70-105); Potassium 3.9 mmol/L (3.5-5.1); Sodium 136 mmol/L (136-145)
[2023-02-23] MEDS: Furosemide 20 MG/2 ML VIAL SLOW IVP SCH (05:42)
[2023-02-23] MEDS: Guaifenesin DM 100-10/5 ML UDCUP PO SCH ×5 (05:42→22:07)
[2023-02-23] MEDS: HumaLOG 300 UNITS/3 ML VIAL SC PRN ×2 (05:43→15:12)
[2023-02-23] MEDS: Albuterol 200 PUFF (6.7GM INHALER) INH SCH ×4 (07:39→23:47)
[2023-02-23] MEDS: Ipratropium 200 Puff Oral Inhaler INH SCH ×4 (07:40→23:48)
[2023-02-23] MEDS: Lansoprazole 15 MG/5 ML (BATCHED)UDCUP PER TUBE SCH (09:22)
[2023-02-23] MEDS: Cefdinir 125 MG/5 ML Oral Suspension PER TUBE SCH ×2 (09:22→22:07)
[2023-02-23] MEDS: Amlodipine 10 MG TAB PO SCH (09:23)
[2023-02-23] MEDS: hydrALAZINE 25 MG TAB PO SCH ×3 (09:23→22:04)
[2023-02-23] MEDS: Carvedilol 25 MG TAB PO SCH ×2 (09:23→17:05)
[2023-02-23] MEDS: Lisinopril 20 MG TAB PO SCH ×2 (09:23→22:05)
[2023-02-23] MEDS: cloNIDine 0.1 MG TAB PO SCH ×3 (09:24→22:05)
[2023-02-23] MEDS: Insulin NPH Human Isophane 100 UNITS/ML (10 ML VIAL) SC SCH ×2 (09:24→22:06)
[2023-02-23] MEDS: Polyethylene Glycol 3350 17 GM Packet PO SCH (09:25)
[2023-02-23] MEDS: Fluconazole 100 MG TAB PER TUBE SCH (13:58)
[2023-02-23] MEDS: Atorvastatin Calcium 40 MG TAB PO SCH (22:05)
[2023-02-24] MEDS: HumaLOG 300 UNITS/3 ML VIAL SC PRN ×2 (01:02→06:02)
[2023-02-24] MEDS: Scopolamine 1.5 mg/72 hour Patch TD SCH (01:03)
[2023-02-24 05:25] LABS: #Eosinphils 0.2 thou/uL (0.0-0.7); #Lymphocytes 1.6 thou/uL (1.20-3.40); #Monocytes 0.6 thou/uL (0.11-0.59); #Neutrophils 6.3 thou/uL (1.40-6.50); %Basophils 0.2 % (0.0-1.0); %Lymphocytes 18.4 % (21.0-51.0); %Monocytes 6.8 % (0.0-10.0); %Neutrophils 72.5 % (42.0-75.0); Hematocrit 26.6 % (36.0-47.0); Hemoglobin 8.7 g/dL (12.0-16.0); Mean Corpuscular HGB CONC 32.8 g/dL (32.0-36.0); Mean Corpuscular Hemoglobin 30.5 pg (27.0-31.0); Mean Platelet Volume 7.1 fL (7.4-10.4); Platelet Count 331 10x3/uL (130-400); Red Blood Cell (RBC) Count 2.86 mill/uL (4.20-5.40); White Blood Cell (WBC) Count 8.7 10x3/uL (4.8-10.8)
[2023-02-24 05:26] LABS: Anion Gap 11 mmol/L (10-20); BUN (Urea Nitrogen) 16 mg/dL (9.8-20.1); Calc. Creatinine Clearance 120 mL/min (70-130); Calcium 8.6 mg/dL (7.8-10.44); Carbon Dioxide 29 mmol/L (22-29); Chloride 100 mmol/L (98-107); Estimated GFR 105; Glucose 178 mg/dL (70-105); Sodium 136 mmol/L (136-145)
[2023-02-24] MEDS: Guaifenesin DM 100-10/5 ML UDCUP PO SCH ×5 (06:01→21:40)
[2023-02-24] MEDS: Albuterol 200 PUFF (6.7GM INHALER) INH SCH ×4 (08:11→23:28)
[2023-02-24] MEDS: Ipratropium 200 Puff Oral Inhaler INH SCH ×4 (08:12→23:29)
[2023-02-24] MEDS: Cefdinir 125 MG/5 ML Oral Suspension PER TUBE SCH ×2 (10:02→21:35)
[2023-02-24] MEDS: Lansoprazole 15 MG/5 ML (BATCHED)UDCUP PER TUBE SCH (10:03)
[2023-02-24] MEDS: Polyethylene Glycol 3350 17 GM Packet PO SCH (10:04)
[2023-02-24] MEDS: Carvedilol 25 MG TAB PO SCH ×2 (10:04→17:48)
[2023-02-24] MEDS: hydrALAZINE 25 MG TAB PO SCH ×3 (10:04→21:39)
[2023-02-24] MEDS: Lisinopril 20 MG TAB PO SCH ×2 (10:05→21:39)
[2023-02-24] MEDS: Amlodipine 10 MG TAB PO SCH (10:05)
[2023-02-24] MEDS: Insulin NPH Human Isophane 100 UNITS/ML (10 ML VIAL) SC SCH ×2 (10:06→21:28)
[2023-02-24] MEDS: cloNIDine 0.1 MG TAB PO SCH ×3 (10:07→21:39)
[2023-02-24] MEDS: Ondansetron PF 4 MG/2 ML Vial IVP PRN (12:06)
[2023-02-24] MEDS: Fluconazole 100 MG TAB PER TUBE SCH (15:14)
[2023-02-24] MEDS: Atorvastatin Calcium 40 MG TAB PO SCH (21:39)
[2023-02-25 05:06] LABS: #Eosinphils 0.2 thou/uL (0.0-0.7); #Monocytes 0.5 thou/uL (0.11-0.59); #Neutrophils 6.6 thou/uL (1.40-6.50); %Basophils 0.2 % (0.0-1.0); %Eosinophils 1.9 % (0.0-10.0); %Lymphocytes 19.2 % (21.0-51.0); %Monocytes 5.2 % (0.0-10.0); %Neutrophils 73.3 % (42.0-75.0); Hematocrit 29.2 % (36.0-47.0); Hemoglobin 8.9 g/dL (12.0-16.0); Mean Corpuscular HGB CONC 30.5 g/dL (32.0-36.0); Mean Corpuscular Hemoglobin 27.9 pg (27.0-31.0); Mean Corpuscular Volume 91.5 fl (78.0-98.0); Mean Platelet Volume 9.3 fL (7.4-10.4); Platelet Count 350 10x3/uL (130-400); RBC Distribution Width 13.6 % (11.5-14.5); Red Blood Cell (RBC) Count 3.19 mill/uL (4.20-5.40)
[2023-02-25 05:33] LABS: Anion Gap 10 mmol/L (10-20); BUN (Urea Nitrogen) 13 mg/dL (9.8-20.1); Calc. Creatinine Clearance 114 mL/min (70-130); Calcium 8.7 mg/dL (7.8-10.44); Carbon Dioxide 29 mmol/L (22-29); Chloride 100 mmol/L (98-107); Estimated GFR 104; Glucose 203 mg/dL (70-105); Potassium 4.2 mmol/L (3.5-5.1); Sodium 135 mmol/L (136-145)
[2023-02-25] MEDS: Guaifenesin DM 100-10/5 ML UDCUP PO SCH ×4 (06:17→21:21)
[2023-02-25] MEDS: HumaLOG 300 UNITS/3 ML VIAL SC PRN (06:17)
[2023-02-25] MEDS: Albuterol 200 PUFF (6.7GM INHALER) INH SCH ×3 (07:05→19:31)
[2023-02-25] MEDS: Ipratropium 200 Puff Oral Inhaler INH SCH ×3 (07:06→19:31)
[2023-02-25] MEDS: Carvedilol 25 MG TAB PO SCH ×2 (10:12→19:49)
[2023-02-25] MEDS: Amlodipine 10 MG TAB PO SCH (10:12)
[2023-02-25] MEDS: Cefdinir 125 MG/5 ML Oral Suspension PER TUBE SCH ×2 (10:13→21:21)
[2023-02-25] MEDS: cloNIDine 0.1 MG TAB PO SCH ×3 (10:13→21:21)
[2023-02-25] MEDS: hydrALAZINE 25 MG TAB PO SCH ×3 (10:13→21:22)
[2023-02-25] MEDS: Lansoprazole 15 MG/5 ML (BATCHED)UDCUP PER TUBE SCH (10:14)
[2023-02-25] MEDS: Insulin NPH Human Isophane 100 UNITS/ML (10 ML VIAL) SC SCH ×3 (10:14→21:21)
[2023-02-25] MEDS: Lisinopril 20 MG TAB PO SCH ×2 (10:15→21:21)
[2023-02-25] MEDS: Polyethylene Glycol 3350 17 GM Packet PO SCH (10:15)
[2023-02-25] MEDS: Fluconazole 100 MG TAB PER TUBE SCH (16:08)
[2023-02-25] MEDS: Atorvastatin Calcium 40 MG TAB PO SCH (21:21)
[2023-02-26] MEDS: Albuterol 200 PUFF (6.7GM INHALER) INH SCH ×5 (00:15→23:51)
[2023-02-26] MEDS: Ipratropium 200 Puff Oral Inhaler INH SCH ×5 (00:16→23:51)
[2023-02-26] MEDS: Guaifenesin DM 100-10/5 ML UDCUP PO SCH ×6 (02:16→21:15)
[2023-02-26] MEDS: Acetaminophen 325 MG TAB PER TUBE PRN (03:25)
[2023-02-26 05:11] LABS: #Eosinphils 0.2 thou/uL (0.0-0.7); #Monocytes 0.5 thou/uL (0.11-0.59); #Neutrophils 4.5 thou/uL (1.40-6.50); %Basophils 0.3 % (0.0-1.0); %Eosinophils 3.2 % (0.0-10.0); %Lymphocytes 23.3 % (21.0-51.0); %Monocytes 7.8 % (0.0-10.0); %Neutrophils 65.1 % (42.0-75.0); Hemoglobin 8.9 g/dL (12.0-16.0); Mean Corpuscular HGB CONC 31.8 g/dL (32.0-36.0); Mean Corpuscular Hemoglobin 28.6 pg (27.0-31.0); Mean Platelet Volume 9.4 fL (7.4-10.4); Platelet Count 359 10x3/uL (130-400); RBC Distribution Width 13.6 % (11.5-14.5); Red Blood Cell (RBC) Count 3.11 mill/uL (4.20-5.40); White Blood Cell (WBC) Count 6.9 10x3/uL (4.8-10.8)
[2023-02-26 05:33] LABS: Anion Gap 12 mmol/L (10-20); BUN (Urea Nitrogen) 12 mg/dL (9.8-20.1); Calc. Creatinine Clearance 120 mL/min (70-130); Calcium 8.5 mg/dL (7.8-10.44); Carbon Dioxide 26 mmol/L (22-29); Chloride 97 mmol/L (98-107); Estimated GFR 105; Glucose 131 mg/dL (70-105); Potassium 4.1 mmol/L (3.5-5.1); Sodium 131 mmol/L (136-145)
[2023-02-26] MEDS: cloNIDine 0.1 MG TAB PO SCH ×3 (09:15→21:16)
[2023-02-26] MEDS: Carvedilol 25 MG TAB PO SCH ×2 (09:15→17:53)
[2023-02-26] MEDS: Lansoprazole 15 MG/5 ML (BATCHED)UDCUP PER TUBE SCH (09:15)
[2023-02-26] MEDS: Lisinopril 20 MG TAB PO SCH ×2 (09:16→21:15)
[2023-02-26] MEDS: hydrALAZINE 25 MG TAB PO SCH ×3 (09:16→21:15)
[2023-02-26] MEDS: Amlodipine 10 MG TAB PO SCH (09:17)
[2023-02-26] MEDS: Polyethylene Glycol 3350 17 GM Packet PO SCH (09:18)
[2023-02-26] MEDS: Insulin NPH Human Isophane 100 UNITS/ML (10 ML VIAL) SC SCH ×2 (09:19→20:51)
[2023-02-26] MEDS: Cefdinir 125 MG/5 ML Oral Suspension PER TUBE SCH ×2 (10:34→21:16)
[2023-02-26] MEDS: Fluconazole 100 MG TAB PER TUBE SCH (14:36)
[2023-02-26] MEDS: Scopolamine 1.5 mg/72 hour Patch TD SCH (21:14)
[2023-02-26] MEDS: Atorvastatin Calcium 40 MG TAB PO SCH (21:16)
[2023-02-26] MEDS ORDERED: Dextrose 5 %-0.45 % NaCl 1,000 ML IV SCH (21:45)
[2023-02-26] MEDS ORDERED: Metoclopramide HCl 10 MG/2 ML VIAL IVP SCH (22:00)
[2023-02-27 04:56] LABS: #Eosinphils 0.1 thou/uL (0.0-0.7); #Monocytes 0.4 thou/uL (0.11-0.59); #Neutrophils 8.5 thou/uL (1.40-6.50); %Basophils 0.2 % (0.0-1.0); %Lymphocytes 11.8 % (21.0-51.0); %Monocytes 4.2 % (0.0-10.0); %Neutrophils 82.4 % (42.0-75.0); Hemoglobin 9.1 g/dL (12.0-16.0); Mean Corpuscular HGB CONC 31.4 g/dL (32.0-36.0); Mean Corpuscular Hemoglobin 28.3 pg (27.0-31.0); Mean Corpuscular Volume 90.3 fl (78.0-98.0); Mean Platelet Volume 9.5 fL (7.4-10.4); Platelet Count 365 10x3/uL (130-400); RBC Distribution Width 13.9 % (11.5-14.5); Red Blood Cell (RBC) Count 3.21 mill/uL (4.20-5.40); White Blood Cell (WBC) Count 10.3 10x3/uL (4.8-10.8)
[2023-02-27 05:14] LABS: Anion Gap 12 mmol/L (10-20); BUN (Urea Nitrogen) 10 mg/dL (9.8-20.1); Calc. Creatinine Clearance 112 mL/min (70-130); Calcium 8.4 mg/dL (7.8-10.44); Carbon Dioxide 25 mmol/L (22-29); Chloride 98 mmol/L (98-107); Estimated GFR 104; Glucose 228 mg/dL (70-105); Sodium 131 mmol/L (136-145)
[2023-02-27] MEDS: Guaifenesin DM 100-10/5 ML UDCUP PO SCH ×5 (06:19→22:17)
[2023-02-27] MEDS: Albuterol 200 PUFF (6.7GM INHALER) INH SCH ×3 (06:56→18:22)
[2023-02-27] MEDS: Ipratropium 200 Puff Oral Inhaler INH SCH ×3 (06:56→18:22)
[2023-02-27] MEDS: Polyethylene Glycol 3350 17 GM Packet PO SCH (10:09)
[2023-02-27] MEDS: Lisinopril 20 MG TAB PO SCH ×2 (10:09→21:36)
[2023-02-27] MEDS: Carvedilol 25 MG TAB PO SCH ×2 (10:10→18:15)
[2023-02-27] MEDS: Amlodipine 10 MG TAB PO SCH (10:10)
[2023-02-27] MEDS: hydrALAZINE 25 MG TAB PO SCH ×3 (10:10→21:34)
[2023-02-27] MEDS: cloNIDine 0.1 MG TAB PO SCH ×3 (10:11→21:35)
[2023-02-27] MEDS: Lansoprazole 15 MG/5 ML (BATCHED)UDCUP PER TUBE SCH (10:15)
[2023-02-27] MEDS: Cefdinir 125 MG/5 ML Oral Suspension PER TUBE SCH ×2 (10:19→21:36)
[2023-02-27] MEDS: Insulin NPH Human Isophane 100 UNITS/ML (10 ML VIAL) SC SCH ×2 (10:42→21:37)
[2023-02-27] MEDS: Metoclopramide HCl 10 MG/2 ML VIAL IVP SCH ×2 (14:05→22:26)
[2023-02-27] MEDS: HumaLOG 300 UNITS/3 ML VIAL SC PRN ×2 (14:06→18:35)
[2023-02-27] MEDS: Atorvastatin Calcium 40 MG TAB PO SCH (21:37)
[2023-02-28] MEDS: Ipratropium 200 Puff Oral Inhaler INH SCH ×2 (01:37→08:14)
[2023-02-28] MEDS: Albuterol 200 PUFF (6.7GM INHALER) INH SCH ×2 (01:37→08:14)
[2023-02-28 04:51] LABS: #Eosinphils 0.2 thou/uL (0.0-0.7); #Monocytes 0.5 thou/uL (0.11-0.59); #Neutrophils 4.3 thou/uL (1.40-6.50); %Basophils 0.2 % (0.0-1.0); %Eosinophils 2.5 % (0.0-10.0); %Monocytes 7.9 % (0.0-10.0); %Neutrophils 68.1 % (42.0-75.0); Hematocrit 29.4 % (36.0-47.0); Hemoglobin 9.3 g/dL (12.0-16.0); Mean Corpuscular HGB CONC 31.6 g/dL (32.0-36.0); Mean Corpuscular Hemoglobin 28.4 pg (27.0-31.0); Mean Corpuscular Volume 89.9 fl (78.0-98.0); Mean Platelet Volume 9.1 fL (7.4-10.4); Platelet Count 371 10x3/uL (130-400); RBC Distribution Width 13.9 % (11.5-14.5); Red Blood Cell (RBC) Count 3.27 mill/uL (4.20-5.40); White Blood Cell (WBC) Count 6.3 10x3/uL (4.8-10.8)
[2023-02-28] MEDS: Metoclopramide HCl 10 MG/2 ML VIAL IVP SCH ×3 (05:06→22:52)
[2023-02-28] MEDS: Guaifenesin DM 100-10/5 ML UDCUP PO SCH ×5 (05:06→22:52)
[2023-02-28 05:22] LABS: Anion Gap 11 mmol/L (10-20); BUN (Urea Nitrogen) 8 mg/dL (9.8-20.1); Calc. Creatinine Clearance 120 mL/min (70-130); Calcium 8.8 mg/dL (7.8-10.44); Carbon Dioxide 28 mmol/L (22-29); Chloride 99 mmol/L (98-107); Estimated GFR 105; Glucose 149 mg/dL (70-105); Potassium 3.8 mmol/L (3.5-5.1); Sodium 134 mmol/L (136-145)
[2023-02-28] MEDS: Cefdinir 125 MG/5 ML Oral Suspension PER TUBE SCH ×2 (08:41→20:53)
[2023-02-28] MEDS: Carvedilol 25 MG TAB PO SCH ×2 (08:42→19:34)
[2023-02-28] MEDS: Amlodipine 10 MG TAB PO SCH (08:42)
[2023-02-28] MEDS: Lansoprazole 15 MG/5 ML (BATCHED)UDCUP PER TUBE SCH (08:42)
[2023-02-28] MEDS: Insulin NPH Human Isophane 100 UNITS/ML (10 ML VIAL) SC SCH ×2 (08:42→22:00)
[2023-02-28] MEDS: hydrALAZINE 25 MG TAB PO SCH ×3 (08:43→20:49)
[2023-02-28] MEDS: cloNIDine 0.1 MG TAB PO SCH ×3 (08:44→20:49)
[2023-02-28] MEDS: Lisinopril 20 MG TAB PO SCH ×2 (08:44→20:49)
[2023-02-28] MEDS: Polyethylene Glycol 3350 17 GM Packet PO SCH (08:45)
[2023-02-28] MEDS: Ipratropium/Albuterol 3 ML NEB NEB SCH ×2 (13:07→19:25)
[2023-02-28] MEDS: Atorvastatin Calcium 40 MG TAB PO SCH (20:49)
[2023-03-01] MEDS: Ipratropium/Albuterol 3 ML NEB NEB SCH ×4 (01:27→18:59)
[2023-03-01] MEDS: Guaifenesin DM 100-10/5 ML UDCUP PO SCH ×5 (05:06→21:09)
[2023-03-01] MEDS: Metoclopramide HCl 10 MG/2 ML VIAL IVP SCH ×3 (05:07→21:08)
[2023-03-01] MEDS: HumaLOG 300 UNITS/3 ML VIAL SC PRN ×2 (05:42→13:02)
[2023-03-01 05:58] LABS: #Eosinphils 0.1 thou/uL (0.0-0.7); #Monocytes 0.4 thou/uL (0.11-0.59); #Neutrophils 4.7 thou/uL (1.40-6.50); %Basophils 0.3 % (0.0-1.0); %Eosinophils 2.1 % (0.0-10.0); %Lymphocytes 19.9 % (21.0-51.0); %Neutrophils 71.5 % (42.0-75.0); Hematocrit 29.6 % (36.0-47.0); Hemoglobin 9.1 g/dL (12.0-16.0); Mean Corpuscular HGB CONC 30.7 g/dL (32.0-36.0); Mean Corpuscular Hemoglobin 27.7 pg (27.0-31.0); Mean Platelet Volume 9.4 fL (7.4-10.4); Platelet Count 386 10x3/uL (130-400); RBC Distribution Width 14.4 % (11.5-14.5); Red Blood Cell (RBC) Count 3.29 mill/uL (4.20-5.40); White Blood Cell (WBC) Count 6.5 10x3/uL (4.8-10.8)
[2023-03-01 06:13] LABS: Anion Gap 12 mmol/L (10-20); BUN (Urea Nitrogen) 10 mg/dL (9.8-20.1); Calc. Creatinine Clearance 106 mL/min (70-130); Calcium 8.7 mg/dL (7.8-10.44); Carbon Dioxide 27 mmol/L (22-29); Chloride 98 mmol/L (98-107); Estimated GFR 102; Glucose 183 mg/dL (70-105); Sodium 133 mmol/L (136-145)
[2023-03-01] MEDS: Amlodipine 10 MG TAB PO SCH (10:38)
[2023-03-01] MEDS: Lisinopril 20 MG TAB PO SCH ×2 (10:38→21:10)
[2023-03-01] MEDS: hydrALAZINE 25 MG TAB PO SCH ×3 (10:38→21:09)
[2023-03-01] MEDS: cloNIDine 0.1 MG TAB PO SCH ×3 (10:39→21:09)
[2023-03-01] MEDS: Carvedilol 25 MG TAB PO SCH ×2 (10:41→16:11)
[2023-03-01] MEDS: Lansoprazole 15 MG/5 ML (BATCHED)UDCUP PER TUBE SCH (10:41)
[2023-03-01] MEDS: Cefdinir 125 MG/5 ML Oral Suspension PER TUBE SCH ×2 (10:41→21:08)
[2023-03-01] MEDS: Polyethylene Glycol 3350 17 GM Packet PO SCH (10:42)
[2023-03-01] MEDS: Insulin NPH Human Isophane 100 UNITS/ML (10 ML VIAL) SC SCH ×2 (10:44→21:10)
[2023-03-01] MEDS: Atorvastatin Calcium 40 MG TAB PO SCH (21:09)
[2023-03-02] MEDS: Ipratropium/Albuterol 3 ML NEB NEB SCH ×4 (00:40→18:50)
[2023-03-02] MEDS: Scopolamine 1.5 mg/72 hour Patch TD SCH (01:07)
[2023-03-02] MEDS: Metoclopramide HCl 10 MG/2 ML VIAL IVP SCH ×3 (05:52→21:49)
[2023-03-02] MEDS: Guaifenesin DM 100-10/5 ML UDCUP PO SCH ×5 (05:52→21:49)
[2023-03-02 05:59] LABS: #Eosinphils 0.2 thou/uL (0.0-0.7); #Monocytes 0.5 thou/uL (0.11-0.59); #Neutrophils 4.3 thou/uL (1.40-6.50); %Basophils 0.3 % (0.0-1.0); %Eosinophils 2.4 % (0.0-10.0); %Lymphocytes 21.6 % (21.0-51.0); %Monocytes 7.3 % (0.0-10.0); %Neutrophils 68.1 % (42.0-75.0); Hematocrit 27.2 % (36.0-47.0); Hemoglobin 8.5 g/dL (12.0-16.0); Mean Corpuscular HGB CONC 31.3 g/dL (32.0-36.0); Mean Corpuscular Hemoglobin 28.5 pg (27.0-31.0); Mean Corpuscular Volume 91.3 fl (78.0-98.0); Mean Platelet Volume 9.4 fL (7.4-10.4); Platelet Count 368 10x3/uL (130-400); RBC Distribution Width 14.4 % (11.5-14.5); Red Blood Cell (RBC) Count 2.98 mill/uL (4.20-5.40); White Blood Cell (WBC) Count 6.3 10x3/uL (4.8-10.8)
[2023-03-02 06:32] LABS: Anion Gap 16 mmol/L (10-20); BUN (Urea Nitrogen) 12 mg/dL (9.8-20.1); Calc. Creatinine Clearance 122 mL/min (70-130); Calcium 8.7 mg/dL (7.8-10.44); Carbon Dioxide 21 mmol/L (22-29); Chloride 102 mmol/L (98-107); Estimated GFR 106; Glucose 90 mg/dL (70-105); Potassium 4.4 mmol/L (3.5-5.1); Sodium 135 mmol/L (136-145)
[2023-03-02] MEDS: Amlodipine 10 MG TAB PO SCH (08:46)
[2023-03-02] MEDS: Carvedilol 25 MG TAB PO SCH ×2 (08:46→18:17)
[2023-03-02] MEDS: hydrALAZINE 25 MG TAB PO SCH ×3 (08:47→21:49)
[2023-03-02] MEDS: cloNIDine 0.1 MG TAB PO SCH ×3 (08:47→21:50)
[2023-03-02] MEDS: Lisinopril 20 MG TAB PO SCH ×2 (08:48→21:50)
[2023-03-02] MEDS: Lansoprazole 15 MG/5 ML (BATCHED)UDCUP PER TUBE SCH (08:48)
[2023-03-02] MEDS: Insulin NPH Human Isophane 100 UNITS/ML (10 ML VIAL) SC SCH ×2 (08:48→22:32)
[2023-03-02] MEDS: Polyethylene Glycol 3350 17 GM Packet PO SCH (08:59)
[2023-03-02] MEDS: Cefdinir 125 MG/5 ML Oral Suspension PER TUBE SCH ×2 (09:32→21:48)
[2023-03-02] MEDS: Atorvastatin Calcium 40 MG TAB PO SCH (21:49)
[2023-03-03] MEDS: Ipratropium/Albuterol 3 ML NEB NEB SCH ×4 (01:49→18:55)
[2023-03-03] MEDS: Guaifenesin DM 100-10/5 ML UDCUP PO SCH ×5 (06:33→21:34)
[2023-03-03] MEDS: Metoclopramide HCl 10 MG/2 ML VIAL IVP SCH ×3 (06:33→21:35)
[2023-03-03] MEDS: HumaLOG 300 UNITS/3 ML VIAL SC PRN ×2 (06:34→12:46)
[2023-03-03] MEDS: hydrALAZINE 25 MG TAB PO SCH ×3 (09:43→21:33)
[2023-03-03] MEDS: Amlodipine 10 MG TAB PO SCH (09:43)
[2023-03-03] MEDS: Carvedilol 25 MG TAB PO SCH ×2 (09:43→18:33)
[2023-03-03] MEDS: Lisinopril 20 MG TAB PO SCH ×2 (09:43→21:35)
[2023-03-03] MEDS: Insulin NPH Human Isophane 100 UNITS/ML (10 ML VIAL) SC SCH ×2 (09:44→21:34)
[2023-03-03] MEDS: cloNIDine 0.1 MG TAB PO SCH ×3 (09:44→21:34)
[2023-03-03] MEDS: Lansoprazole 15 MG/5 ML (BATCHED)UDCUP PER TUBE SCH (09:44)
[2023-03-03] MEDS: Polyethylene Glycol 3350 17 GM Packet PO SCH (09:45)
[2023-03-03] MEDS: Atorvastatin Calcium 40 MG TAB PO SCH (21:34)
[2023-03-04] MEDS: Ipratropium/Albuterol 3 ML NEB NEB SCH ×4 (00:51→19:28)
[2023-03-04] MEDS: Guaifenesin DM 100-10/5 ML UDCUP PO SCH ×5 (05:34→21:40)
[2023-03-04] MEDS: Metoclopramide HCl 10 MG/2 ML VIAL IVP SCH ×3 (05:34→21:40)
[2023-03-04] MEDS: HumaLOG 300 UNITS/3 ML VIAL SC PRN ×2 (05:45→12:24)
[2023-03-04] MEDS: Carvedilol 25 MG TAB PO SCH ×2 (09:52→16:31)
[2023-03-04] MEDS: hydrALAZINE 25 MG TAB PO SCH ×3 (09:52→21:39)
[2023-03-04] MEDS: Lansoprazole 15 MG/5 ML (BATCHED)UDCUP PER TUBE SCH (09:52)
[2023-03-04] MEDS: Amlodipine 10 MG TAB PO SCH (09:53)
[2023-03-04] MEDS: cloNIDine 0.1 MG TAB PO SCH ×3 (09:53→21:39)
[2023-03-04] MEDS: Insulin NPH Human Isophane 100 UNITS/ML (10 ML VIAL) SC SCH ×2 (09:54→21:30)
[2023-03-04] MEDS: Lisinopril 20 MG TAB PO SCH ×2 (09:55→21:39)
[2023-03-04] MEDS: Polyethylene Glycol 3350 17 GM Packet PO SCH (09:57)
[2023-03-04] MEDS: Ondansetron PF 4 MG/2 ML Vial IVP PRN (10:48)
[2023-03-04] MEDS ORDERED: Promethazine HCl 12.5 MG in Sodium Chloride 0.9% 50 ML IVPB PRN (11:02)
[2023-03-04] MEDS ORDERED: Senokot S 8.6-50 MG TAB PO PRN (14:00)
[2023-03-04] MEDS: Atorvastatin Calcium 40 MG TAB PO SCH (21:39)
[2023-03-05] MEDS: Ipratropium/Albuterol 3 ML NEB NEB SCH ×4 (00:07→19:15)
[2023-03-05] MEDS: Scopolamine 1.5 mg/72 hour Patch TD SCH (01:43)
[2023-03-05] MEDS: Metoclopramide HCl 10 MG/2 ML VIAL IVP SCH ×3 (04:59→22:23)
[2023-03-05] MEDS: Guaifenesin DM 100-10/5 ML UDCUP PO SCH ×5 (04:59→22:23)
[2023-03-05] MEDS: Amlodipine 10 MG TAB PO SCH (08:37)
[2023-03-05] MEDS: Carvedilol 25 MG TAB PO SCH ×2 (08:37→17:14)
[2023-03-05] MEDS: cloNIDine 0.1 MG TAB PO SCH ×3 (08:37→22:24)
[2023-03-05] MEDS: hydrALAZINE 25 MG TAB PO SCH ×3 (08:38→22:29)
[2023-03-05] MEDS: Lisinopril 20 MG TAB PO SCH ×2 (08:39→22:25)
[2023-03-05] MEDS: Lansoprazole 15 MG/5 ML (BATCHED)UDCUP PER TUBE SCH (08:39)
[2023-03-05] MEDS: Polyethylene Glycol 3350 17 GM Packet PO SCH (08:39)
[2023-03-05] MEDS: Insulin NPH Human Isophane 100 UNITS/ML (10 ML VIAL) SC SCH ×2 (08:48→22:25)
[2023-03-05] MEDS ORDERED: GASTROGRAFIN 30 ML BOT ONE (10:44)
[2023-03-05] MEDS: HumaLOG 300 UNITS/3 ML VIAL SC PRN (13:18)
[2023-03-05] MEDS: Atorvastatin Calcium 40 MG TAB PO SCH (22:25)
[2023-03-06] MEDS: Ipratropium/Albuterol 3 ML NEB NEB SCH ×4 (01:12→18:42)
[2023-03-06] MEDS: Metoclopramide HCl 10 MG/2 ML VIAL IVP SCH ×3 (05:13→22:29)
[2023-03-06] MEDS: Guaifenesin DM 100-10/5 ML UDCUP PO SCH ×5 (05:13→22:28)
[2023-03-06] MEDS: Polyethylene Glycol 3350 17 GM Packet PO SCH (07:49)
[2023-03-06] MEDS: Lansoprazole 15 MG/5 ML (BATCHED)UDCUP PER TUBE SCH (08:43)
[2023-03-06] MEDS: hydrALAZINE 25 MG TAB PO SCH ×3 (08:44→22:29)
[2023-03-06] MEDS: Amlodipine 10 MG TAB PO SCH (08:44)
[2023-03-06] MEDS: Insulin NPH Human Isophane 100 UNITS/ML (10 ML VIAL) SC SCH ×2 (08:44→22:31)
[2023-03-06] MEDS: Lisinopril 20 MG TAB PO SCH ×2 (08:45→22:29)
[2023-03-06] MEDS: cloNIDine 0.1 MG TAB PO SCH ×3 (08:45→22:30)
[2023-03-06] MEDS: Carvedilol 25 MG TAB PO SCH ×2 (08:45→17:26)
[2023-03-06] MEDS: Atorvastatin Calcium 40 MG TAB PO SCH (22:29)
[2023-03-07] MEDS: HumaLOG 300 UNITS/3 ML VIAL SC PRN ×2 (00:18→14:05)
[2023-03-07] MEDS: Ipratropium/Albuterol 3 ML NEB NEB SCH ×5 (02:25→23:02)
[2023-03-07 05:09] LABS: Hemoglobin 9.3 g/dL (12.0-16.0); Mean Corpuscular Volume 90.4 fl (78.0-98.0); Mean Platelet Volume 9.3 fL (7.4-10.4); Platelet Count 332 10x3/uL (130-400); RBC Distribution Width 14.4 % (11.5-14.5); Red Blood Cell (RBC) Count 3.32 mill/uL (4.20-5.40); White Blood Cell (WBC) Count 6.2 10x3/uL (4.8-10.8)
[2023-03-07 05:37] LABS: Anion Gap 12 mmol/L (10-20); BUN (Urea Nitrogen) 10 mg/dL (9.8-20.1); Calc. Creatinine Clearance 122 mL/min (70-130); Calcium 8.8 mg/dL (7.8-10.44); Carbon Dioxide 26 mmol/L (22-29); Chloride 101 mmol/L (98-107); Estimated GFR 106; Glucose 143 mg/dL (70-105); Magnesium 1.6 mg/dL (1.6-2.6); Potassium 3.9 mmol/L (3.5-5.1); Sodium 135 mmol/L (136-145)
[2023-03-07] MEDS: Guaifenesin DM 100-10/5 ML UDCUP PO SCH ×5 (05:54→22:46)
[2023-03-07] MEDS: Metoclopramide HCl 10 MG/2 ML VIAL IVP SCH ×3 (05:54→22:46)
[2023-03-07] MEDS ORDERED: Magnesium 2 GM/50 ML(in water) 2 GM in Premix Bag 1 BAG IVPB SCH (08:00)
[2023-03-07] MEDS: Polyethylene Glycol 3350 17 GM Packet PO SCH (08:06)
[2023-03-07] MEDS: Lansoprazole 15 MG/5 ML (BATCHED)UDCUP PER TUBE SCH (09:57)
[2023-03-07] MEDS: Insulin NPH Human Isophane 100 UNITS/ML (10 ML VIAL) SC SCH ×2 (09:57→22:46)
[2023-03-07] MEDS: Amlodipine 10 MG TAB PO SCH (09:57)
[2023-03-07] MEDS: hydrALAZINE 25 MG TAB PO SCH ×3 (09:58→22:45)
[2023-03-07] MEDS: Lisinopril 20 MG TAB PO SCH ×2 (09:58→22:46)
[2023-03-07] MEDS: Carvedilol 25 MG TAB PO SCH ×2 (09:58→18:08)
[2023-03-07] MEDS: cloNIDine 0.1 MG TAB PO SCH ×3 (09:59→22:45)
[2023-03-07] MEDS: Atorvastatin Calcium 40 MG TAB PO SCH (22:45)
[2023-03-08] MEDS: Scopolamine 1.5 mg/72 hour Patch TD SCH (02:25)
[2023-03-08] MEDS: Guaifenesin DM 100-10/5 ML UDCUP PO SCH ×5 (05:06→20:33)
[2023-03-08] MEDS: Metoclopramide HCl 10 MG/2 ML VIAL IVP SCH ×3 (05:06→20:33)
[2023-03-08] MEDS: HumaLOG 300 UNITS/3 ML VIAL SC PRN ×2 (05:11→14:31)
[2023-03-08] MEDS: Ipratropium/Albuterol 3 ML NEB NEB SCH ×3 (06:36→18:59)
[2023-03-08] MEDS: hydrALAZINE 25 MG TAB PO SCH ×3 (09:28→20:20)
[2023-03-08] MEDS: Carvedilol 25 MG TAB PO SCH ×2 (09:28→18:26)
[2023-03-08] MEDS: cloNIDine 0.1 MG TAB PO SCH ×3 (09:29→20:21)
[2023-03-08] MEDS: Amlodipine 10 MG TAB PO SCH (09:29)
[2023-03-08] MEDS: Lansoprazole 15 MG/5 ML (BATCHED)UDCUP PER TUBE SCH (09:30)
[2023-03-08] MEDS: Lisinopril 20 MG TAB PO SCH ×2 (09:30→20:20)
[2023-03-08] MEDS: Insulin NPH Human Isophane 100 UNITS/ML (10 ML VIAL) SC SCH ×2 (09:31→20:21)
[2023-03-08] MEDS: Polyethylene Glycol 3350 17 GM Packet PO SCH (09:32)
[2023-03-08] MEDS: Atorvastatin Calcium 40 MG TAB PO SCH (20:20)
[2023-03-09] MEDS: Ipratropium/Albuterol 3 ML NEB NEB SCH ×4 (01:47→18:33)
[2023-03-09] MEDS: Metoclopramide HCl 10 MG/2 ML VIAL IVP SCH ×3 (05:20→22:06)
[2023-03-09] MEDS: Guaifenesin DM 100-10/5 ML UDCUP PO SCH ×5 (05:20→22:06)
[2023-03-09 05:36] LABS: #Eosinphils 0.2 thou/uL (0.0-0.7); #Monocytes 0.6 thou/uL (0.11-0.59); #Neutrophils 4.6 thou/uL (1.40-6.50); %Basophils 0.3 % (0.0-1.0); %Eosinophils 2.4 % (0.0-10.0); %Monocytes 8.4 % (0.0-10.0); %Neutrophils 70.6 % (42.0-75.0); Hematocrit 27.5 % (36.0-47.0); Hemoglobin 8.8 g/dL (12.0-16.0); Mean Corpuscular Hemoglobin 28.7 pg (27.0-31.0); Mean Corpuscular Volume 89.6 fl (78.0-98.0); Mean Platelet Volume 9.4 fL (7.4-10.4); Platelet Count 310 10x3/uL (130-400); RBC Distribution Width 14.3 % (11.5-14.5); Red Blood Cell (RBC) Count 3.07 mill/uL (4.20-5.40); White Blood Cell (WBC) Count 6.6 10x3/uL (4.8-10.8)
[2023-03-09 06:00] LABS: Anion Gap 12 mmol/L (10-20); BUN (Urea Nitrogen) 14 mg/dL (9.8-20.1); Calc. Creatinine Clearance 122 mL/min (70-130); Calcium 8.7 mg/dL (7.8-10.44); Carbon Dioxide 25 mmol/L (22-29); Chloride 101 mmol/L (98-107); Estimated GFR 106; Glucose 147 mg/dL (70-105); Potassium 3.9 mmol/L (3.5-5.1); Sodium 134 mmol/L (136-145)
[2023-03-09] MEDS: Lansoprazole 15 MG/5 ML (BATCHED)UDCUP PER TUBE SCH (08:53)
[2023-03-09] MEDS: Lisinopril 20 MG TAB PO SCH ×2 (08:53→22:08)
[2023-03-09] MEDS: Carvedilol 25 MG TAB PO SCH ×2 (08:53→17:53)
[2023-03-09] MEDS: hydrALAZINE 25 MG TAB PO SCH ×3 (08:54→22:07)
[2023-03-09] MEDS: cloNIDine 0.1 MG TAB PO SCH ×3 (08:54→22:08)
[2023-03-09] MEDS: Insulin NPH Human Isophane 100 UNITS/ML (10 ML VIAL) SC SCH ×3 (08:54→22:06)
[2023-03-09] MEDS: Amlodipine 10 MG TAB PO SCH (08:54)
[2023-03-09] MEDS: Polyethylene Glycol 3350 17 GM Packet PO SCH (08:55)
[2023-03-09] MEDS: HumaLOG 300 UNITS/3 ML VIAL SC PRN (19:22)
[2023-03-09] MEDS: Atorvastatin Calcium 40 MG TAB PO SCH (22:08)
[2023-03-09] MEDS: Acetaminophen 325 MG TAB PER TUBE PRN (22:36)
[2023-03-10] MEDS: Ipratropium/Albuterol 3 ML NEB NEB SCH ×4 (01:15→18:20)
[2023-03-10] MEDS: Dextrose 5% in Water 1,000 ML IV PRN (05:46)
[2023-03-10] MEDS: Metoclopramide HCl 10 MG/2 ML VIAL IVP SCH ×3 (05:47→21:43)
[2023-03-10] MEDS: Guaifenesin DM 100-10/5 ML UDCUP PO SCH ×5 (05:47→21:42)
[2023-03-10] MEDS: Polyethylene Glycol 3350 17 GM Packet PO SCH (07:57)
[2023-03-10] MEDS: Lansoprazole 15 MG/5 ML (BATCHED)UDCUP PER TUBE SCH (08:54)
[2023-03-10] MEDS: hydrALAZINE 25 MG TAB PO SCH ×3 (08:54→21:42)
[2023-03-10] MEDS: Lisinopril 20 MG TAB PO SCH ×2 (08:55→21:43)
[2023-03-10] MEDS: Amlodipine 10 MG TAB PO SCH (08:55)
[2023-03-10] MEDS: cloNIDine 0.1 MG TAB PO SCH ×3 (08:55→21:43)
[2023-03-10] MEDS: Carvedilol 25 MG TAB PO SCH ×2 (08:55→18:27)
[2023-03-10] MEDS: Insulin NPH Human Isophane 100 UNITS/ML (10 ML VIAL) SC SCH ×2 (08:56→21:44)
[2023-03-10] MEDS: HumaLOG 300 UNITS/3 ML VIAL SC PRN (18:27)
[2023-03-10] MEDS: Atorvastatin Calcium 40 MG TAB PO SCH (21:43)
[2023-03-11] MEDS: Ipratropium/Albuterol 3 ML NEB NEB SCH ×5 (01:56→23:19)
[2023-03-11] MEDS: Scopolamine 1.5 mg/72 hour Patch TD SCH (03:17)
[2023-03-11] MEDS: Metoclopramide HCl 10 MG/2 ML VIAL IVP SCH ×3 (05:14→22:34)
[2023-03-11] MEDS: Guaifenesin DM 100-10/5 ML UDCUP PO SCH ×5 (05:14→22:34)
[2023-03-11 05:28] LABS: #Eosinphils 0.2 thou/uL (0.0-0.7); #Monocytes 0.7 thou/uL (0.11-0.59); #Neutrophils 4.3 thou/uL (1.40-6.50); %Basophils 0.3 % (0.0-1.0); %Eosinophils 2.8 % (0.0-10.0); %Monocytes 10.7 % (0.0-10.0); Hematocrit 28.6 % (36.0-47.0); Mean Corpuscular HGB CONC 31.5 g/dL (32.0-36.0); Mean Corpuscular Hemoglobin 28.8 pg (27.0-31.0); Mean Corpuscular Volume 91.4 fl (78.0-98.0); Mean Platelet Volume 9.6 fL (7.4-10.4); Platelet Count 276 10x3/uL (130-400); RBC Distribution Width 14.2 % (11.5-14.5); Red Blood Cell (RBC) Count 3.13 mill/uL (4.20-5.40); White Blood Cell (WBC) Count 6.1 10x3/uL (4.8-10.8)
[2023-03-11 05:56] LABS: Anion Gap 14 mmol/L (10-20); BUN (Urea Nitrogen) 14 mg/dL (9.8-20.1); Calc. Creatinine Clearance 124 mL/min (70-130); Calcium 8.9 mg/dL (7.8-10.44); Carbon Dioxide 24 mmol/L (22-29); Chloride 101 mmol/L (98-107); Estimated GFR 106; Glucose 121 mg/dL (70-105); Magnesium 1.5 mg/dL (1.6-2.6); Potassium 3.8 mmol/L (3.5-5.1); Sodium 135 mmol/L (136-145)
[2023-03-11] MEDS ORDERED: Magnesium 2 GM/50 ML(in water) 2 GM in Premix Bag 1 BAG IVPB SCH (08:00)
[2023-03-11] MEDS: Lansoprazole 15 MG/5 ML (BATCHED)UDCUP PER TUBE SCH (09:25)
[2023-03-11] MEDS: hydrALAZINE 25 MG TAB PO SCH ×3 (09:25→22:34)
[2023-03-11] MEDS: Carvedilol 25 MG TAB PO SCH ×2 (09:26→18:06)
[2023-03-11] MEDS: Amlodipine 10 MG TAB PO SCH (09:26)
[2023-03-11] MEDS: cloNIDine 0.1 MG TAB PO SCH ×3 (09:26→22:35)
[2023-03-11] MEDS: Lisinopril 20 MG TAB PO SCH ×2 (09:26→22:35)
[2023-03-11] MEDS: Insulin NPH Human Isophane 100 UNITS/ML (10 ML VIAL) SC SCH ×2 (09:27→22:35)
[2023-03-11] MEDS: Polyethylene Glycol 3350 17 GM Packet PO SCH (09:57)
[2023-03-11] MEDS ORDERED: Fluconazole 100 MG TAB PO SCH (13:30)
[2023-03-11] MEDS ORDERED: Nystatin 100,000 Units/mL UDCUP SSW SCH (17:00)
[2023-03-11] MEDS: Nystatin 500,000 UNITS/5 ML UDCUP SSW SCH ×2 (18:06→22:36)
[2023-03-11] MEDS: Atorvastatin Calcium 40 MG TAB PO SCH (22:35)
[2023-03-11] MEDS ORDERED: diphenhydrAMINE 50 MG/ML VIAL IVP SCH (23:15)
[2023-03-12] MEDS: Metoclopramide HCl 10 MG/2 ML VIAL IVP SCH ×3 (04:44→21:21)
[2023-03-12] MEDS: Guaifenesin DM 100-10/5 ML UDCUP PO SCH ×5 (04:44→21:15)
[2023-03-12 05:41] LABS: #Eosinphils 0.2 thou/uL (0.0-0.7); #Monocytes 0.6 thou/uL (0.11-0.59); #Neutrophils 3.3 thou/uL (1.40-6.50); %Basophils 0.4 % (0.0-1.0); %Eosinophils 3.2 % (0.0-10.0); %Lymphocytes 19.7 % (21.0-51.0); %Monocytes 11.6 % (0.0-10.0); %Neutrophils 64.9 % (42.0-75.0); Hematocrit 28.8 % (36.0-47.0); Mean Corpuscular HGB CONC 31.3 g/dL (32.0-36.0); Mean Corpuscular Hemoglobin 27.7 pg (27.0-31.0); Mean Corpuscular Volume 88.6 fl (78.0-98.0); Mean Platelet Volume 9.8 fL (7.4-10.4); Platelet Count 282 10x3/uL (130-400); RBC Distribution Width 14.1 % (11.5-14.5); Red Blood Cell (RBC) Count 3.25 mill/uL (4.20-5.40)
[2023-03-12 06:15] LABS: Anion Gap 14 mmol/L (10-20); BUN (Urea Nitrogen) 13 mg/dL (9.8-20.1); Calc. Creatinine Clearance 122 mL/min (70-130); Carbon Dioxide 25 mmol/L (22-29); Chloride 100 mmol/L (98-107); Estimated GFR 106; Glucose 147 mg/dL (70-105); Potassium 3.7 mmol/L (3.5-5.1); Sodium 135 mmol/L (136-145)
[2023-03-12] MEDS: Ipratropium/Albuterol 3 ML NEB NEB SCH ×4 (07:05→23:43)
[2023-03-12] MEDS: Polyethylene Glycol 3350 17 GM Packet PO SCH (09:34)
[2023-03-12] MEDS: Fluconazole 100 MG TAB PO SCH (09:35)
[2023-03-12] MEDS: Nystatin 500,000 UNITS/5 ML UDCUP SSW SCH ×4 (09:35→21:16)
[2023-03-12] MEDS: hydrALAZINE 25 MG TAB PO SCH ×3 (09:36→21:16)
[2023-03-12] MEDS: cloNIDine 0.1 MG TAB PO SCH ×3 (09:36→21:16)
[2023-03-12] MEDS: Lansoprazole 15 MG/5 ML (BATCHED)UDCUP PER TUBE SCH (09:36)
[2023-03-12] MEDS: Lisinopril 20 MG TAB PO SCH ×2 (09:36→21:17)
[2023-03-12] MEDS: Amlodipine 10 MG TAB PO SCH (09:37)
[2023-03-12] MEDS: Insulin NPH Human Isophane 100 UNITS/ML (10 ML VIAL) SC SCH ×2 (09:37→21:16)
[2023-03-12] MEDS: Carvedilol 25 MG TAB PO SCH ×2 (09:37→17:11)
[2023-03-12] MEDS: Atorvastatin Calcium 40 MG TAB PO SCH (21:17)
[2023-03-13] MEDS: Guaifenesin DM 100-10/5 ML UDCUP PO SCH ×5 (05:21→21:14)
[2023-03-13] MEDS: Metoclopramide HCl 10 MG/2 ML VIAL IVP SCH ×3 (05:22→21:27)
[2023-03-13 05:51] LABS: #Eosinphils 0.1 thou/uL (0.0-0.7); #Monocytes 0.6 thou/uL (0.11-0.59); #Neutrophils 3.2 thou/uL (1.40-6.50); %Basophils 0.4 % (0.0-1.0); %Eosinophils 2.6 % (0.0-10.0); %Lymphocytes 19.1 % (21.0-51.0); %Monocytes 11.8 % (0.0-10.0); %Neutrophils 65.9 % (42.0-75.0); Hemoglobin 9.6 g/dL (12.0-16.0); Mean Corpuscular Volume 90.4 fl (78.0-98.0); Mean Platelet Volume 9.8 fL (7.4-10.4); Platelet Count 295 10x3/uL (130-400); RBC Distribution Width 14.1 % (11.5-14.5); Red Blood Cell (RBC) Count 3.43 mill/uL (4.20-5.40); White Blood Cell (WBC) Count 4.9 10x3/uL (4.8-10.8)
[2023-03-13 06:15] LABS: Anion Gap 16 mmol/L (10-20); BUN (Urea Nitrogen) 11 mg/dL (9.8-20.1); Calc. Creatinine Clearance 124 mL/min (70-130); Calcium 9.4 mg/dL (7.8-10.44); Carbon Dioxide 25 mmol/L (22-29); Chloride 99 mmol/L (98-107); Estimated GFR 106; Glucose 94 mg/dL (70-105); Potassium 3.9 mmol/L (3.5-5.1); Sodium 136 mmol/L (136-145)
[2023-03-13] MEDS: Ipratropium/Albuterol 3 ML NEB NEB SCH ×4 (06:55→23:32)
[2023-03-13] MEDS ORDERED: diphenhydrAMINE 12.5 MG/5 ML UDCUP PER TUBE SCH (10:15)
[2023-03-13] MEDS: Lansoprazole 15 MG/5 ML (BATCHED)UDCUP PER TUBE SCH (10:20)
[2023-03-13] MEDS: Nystatin 500,000 UNITS/5 ML UDCUP SSW SCH ×4 (10:21→21:27)
[2023-03-13] MEDS: hydrALAZINE 25 MG TAB PO SCH ×3 (10:21→21:14)
[2023-03-13] MEDS: Amlodipine 10 MG TAB PO SCH (10:22)
[2023-03-13] MEDS: Carvedilol 25 MG TAB PO SCH ×2 (10:23→18:44)
[2023-03-13] MEDS: cloNIDine 0.1 MG TAB PO SCH ×3 (10:23→21:13)
[2023-03-13] MEDS: Fluconazole 100 MG TAB PO SCH (10:23)
[2023-03-13] MEDS: Polyethylene Glycol 3350 17 GM Packet PO SCH (10:24)
[2023-03-13] MEDS: Insulin NPH Human Isophane 100 UNITS/ML (10 ML VIAL) SC SCH ×2 (10:24→21:15)
[2023-03-13] MEDS: Lisinopril 20 MG TAB PO SCH ×2 (10:24→21:14)
[2023-03-13] MEDS: Atorvastatin Calcium 40 MG TAB PO SCH (21:13)
[2023-03-14] MEDS: Scopolamine 1.5 mg/72 hour Patch TD SCH (00:59)
[2023-03-14] MEDS: Guaifenesin DM 100-10/5 ML UDCUP PO SCH ×5 (04:51→22:37)
[2023-03-14 05:00] LABS: #Eosinphils 0.1 thou/uL (0.0-0.7); #Monocytes 0.6 thou/uL (0.11-0.59); #Neutrophils 2.3 thou/uL (1.40-6.50); %Basophils 0.7 % (0.0-1.0); %Eosinophils 2.7 % (0.0-10.0); %Monocytes 13.6 % (0.0-10.0); %Neutrophils 51.8 % (42.0-75.0); Hematocrit 27.9 % (36.0-47.0); Mean Corpuscular HGB CONC 32.3 g/dL (32.0-36.0); Mean Corpuscular Hemoglobin 28.5 pg (27.0-31.0); Mean Corpuscular Volume 88.3 fl (78.0-98.0); Mean Platelet Volume 9.7 fL (7.4-10.4); Platelet Count 312 10x3/uL (130-400); RBC Distribution Width 14.1 % (11.5-14.5); Red Blood Cell (RBC) Count 3.16 mill/uL (4.20-5.40); White Blood Cell (WBC) Count 4.5 10x3/uL (4.8-10.8)
[2023-03-14 05:20] LABS: Anion Gap 13 mmol/L (10-20); BUN (Urea Nitrogen) 8 mg/dL (9.8-20.1); Calc. Creatinine Clearance 126 mL/min (70-130); Calcium 9.2 mg/dL (7.8-10.44); Carbon Dioxide 27 mmol/L (22-29); Chloride 101 mmol/L (98-107); Estimated GFR 107; Glucose 115 mg/dL (70-105); Potassium 3.8 mmol/L (3.5-5.1); Sodium 137 mmol/L (136-145)
[2023-03-14] MEDS: Metoclopramide HCl 10 MG/2 ML VIAL IVP SCH ×3 (06:00→21:57)
[2023-03-14] MEDS: Ipratropium/Albuterol 3 ML NEB NEB SCH ×3 (07:36→18:59)
[2023-03-14] MEDS: Nystatin 500,000 UNITS/5 ML UDCUP SSW SCH ×4 (09:00→21:57)
[2023-03-14] MEDS: Amlodipine 10 MG TAB PO SCH (09:54)
[2023-03-14] MEDS: Carvedilol 25 MG TAB PO SCH ×2 (09:54→19:26)
[2023-03-14] MEDS: Fluconazole 100 MG TAB PO SCH (09:55)
[2023-03-14] MEDS: Insulin NPH Human Isophane 100 UNITS/ML (10 ML VIAL) SC SCH ×2 (09:55→22:37)
[2023-03-14] MEDS: hydrALAZINE 25 MG TAB PO SCH ×3 (09:55→22:36)
[2023-03-14] MEDS: cloNIDine 0.1 MG TAB PO SCH ×3 (09:55→22:36)
[2023-03-14] MEDS: Lisinopril 20 MG TAB PO SCH ×2 (09:56→22:37)
[2023-03-14] MEDS: Lansoprazole 15 MG/5 ML (BATCHED)UDCUP PER TUBE SCH (09:56)
[2023-03-14] MEDS: Polyethylene Glycol 3350 17 GM Packet PO SCH (09:57)
[2023-03-14] MEDS ORDERED: GASTROGRAFIN 30 ML BOT ONE (12:26)
[2023-03-14] MEDS: cefTRIAXone\\ROCEPHIN 1 GM in Sodium Chloride 0.9% 100 ML IVPB SCH (19:26)
[2023-03-14] MEDS: Doxycycline 100 MG in Sodium Chloride 0.9% 100 ML IVPB SCH (21:57)
[2023-03-14] MEDS: Atorvastatin Calcium 40 MG TAB PO SCH (22:36)
[2023-03-15] MEDS: Ipratropium/Albuterol 3 ML NEB NEB SCH ×4 (00:52→18:45)
[2023-03-15 06:10] LABS: #Eosinphils 0.1 thou/uL (0.0-0.7); #Monocytes 0.6 thou/uL (0.11-0.59); #Neutrophils 2.4 thou/uL (1.40-6.50); %Basophils 0.7 % (0.0-1.0); %Eosinophils 2.7 % (0.0-10.0); %Lymphocytes 24.3 % (21.0-51.0); %Neutrophils 58.1 % (42.0-75.0); Hematocrit 29.3 % (36.0-47.0); Hemoglobin 9.1 g/dL (12.0-16.0); Mean Corpuscular HGB CONC 31.1 g/dL (32.0-36.0); Mean Corpuscular Hemoglobin 27.5 pg (27.0-31.0); Mean Corpuscular Volume 88.5 fl (78.0-98.0); Mean Platelet Volume 9.9 fL (7.4-10.4); Platelet Count 336 10x3/uL (130-400); RBC Distribution Width 13.9 % (11.5-14.5); Red Blood Cell (RBC) Count 3.31 mill/uL (4.20-5.40); White Blood Cell (WBC) Count 4.1 10x3/uL (4.8-10.8)
[2023-03-15] MEDS: Metoclopramide HCl 10 MG/2 ML VIAL IVP SCH ×3 (06:10→22:34)
[2023-03-15] MEDS: Guaifenesin DM 100-10/5 ML UDCUP PO SCH ×5 (06:10→22:34)
[2023-03-15 06:29] LABS: Anion Gap 14 mmol/L (10-20); BUN (Urea Nitrogen) 9 mg/dL (9.8-20.1); Calc. Creatinine Clearance 118 mL/min (70-130); Calcium 8.9 mg/dL (7.8-10.44); Carbon Dioxide 25 mmol/L (22-29); Chloride 100 mmol/L (98-107); Estimated GFR 105; Glucose 116 mg/dL (70-105); Potassium 3.5 mmol/L (3.5-5.1); Sodium 135 mmol/L (136-145)
[2023-03-15] MEDS: Doxycycline 100 MG in Sodium Chloride 0.9% 100 ML IVPB SCH ×2 (09:18→22:28)
[2023-03-15] MEDS: hydrALAZINE 25 MG TAB PO SCH ×3 (09:48→22:33)
[2023-03-15] MEDS: Carvedilol 25 MG TAB PO SCH ×2 (09:48→16:21)
[2023-03-15] MEDS: Amlodipine 10 MG TAB PO SCH (09:48)
[2023-03-15] MEDS: Nystatin 500,000 UNITS/5 ML UDCUP SSW SCH ×4 (09:48→22:35)
[2023-03-15] MEDS: Lisinopril 20 MG TAB PO SCH ×2 (09:48→22:34)
[2023-03-15] MEDS: Polyethylene Glycol 3350 17 GM Packet PO SCH (09:48)
[2023-03-15] MEDS: Lansoprazole 15 MG/5 ML (BATCHED)UDCUP PER TUBE SCH (09:49)
[2023-03-15] MEDS: Insulin NPH Human Isophane 100 UNITS/ML (10 ML VIAL) SC SCH ×2 (09:51→22:36)
[2023-03-15] MEDS: cloNIDine 0.1 MG TAB PO SCH ×3 (10:06→22:34)
[2023-03-15] MEDS: Fluconazole 100 MG TAB PO SCH (10:06)
[2023-03-15] MEDS: Potassium Chloride 20 MEQ in Premix Bag 1 BAG IVPB SCH ×2 (11:55→14:09)
[2023-03-15] MEDS ORDERED: Iopamidol-370 76% 500 ML MDV (1 ML CHARGE) ONE (12:35)
[2023-03-15] MEDS: cefTRIAXone\\ROCEPHIN 1 GM in Sodium Chloride 0.9% 100 ML IVPB SCH (16:19)
[2023-03-15 20:36] LABS: Potassium 3.7 mmol/L (3.5-5.1)
[2023-03-15] MEDS: Atorvastatin Calcium 40 MG TAB PO SCH (22:33)
[2023-03-16] MEDS: Ipratropium/Albuterol 3 ML NEB NEB SCH ×4 (01:52→18:46)
[2023-03-16 05:37] LABS: #Eosinphils 0.1 thou/uL (0.0-0.7); #Monocytes 0.6 thou/uL (0.11-0.59); #Neutrophils 2.3 thou/uL (1.40-6.50); %Basophils 0.7 % (0.0-1.0); %Eosinophils 2.9 % (0.0-10.0); %Monocytes 15.7 % (0.0-10.0); %Neutrophils 56.5 % (42.0-75.0); Hematocrit 28.3 % (36.0-47.0); Mean Corpuscular HGB CONC 31.8 g/dL (32.0-36.0); Mean Corpuscular Hemoglobin 28.3 pg (27.0-31.0); Mean Platelet Volume 9.4 fL (7.4-10.4); Platelet Count 332 10x3/uL (130-400); RBC Distribution Width 13.8 % (11.5-14.5); Red Blood Cell (RBC) Count 3.18 mill/uL (4.20-5.40); White Blood Cell (WBC) Count 4.1 10x3/uL (4.8-10.8)
[2023-03-16] MEDS: Guaifenesin DM 100-10/5 ML UDCUP PO SCH ×5 (06:07→21:42)
[2023-03-16] MEDS: Metoclopramide HCl 10 MG/2 ML VIAL IVP SCH ×3 (06:08→21:42)
[2023-03-16] MEDS: HumaLOG 300 UNITS/3 ML VIAL SC PRN ×2 (06:24→13:26)
[2023-03-16 06:38] LABS: Anion Gap 12 mmol/L (10-20); BUN (Urea Nitrogen) 14 mg/dL (9.8-20.1); Calc. Creatinine Clearance 116 mL/min (70-130); Calcium 8.9 mg/dL (7.8-10.44); Carbon Dioxide 24 mmol/L (22-29); Chloride 103 mmol/L (98-107); Estimated GFR 104; Glucose 225 mg/dL (70-105); Potassium 3.9 mmol/L (3.5-5.1); Sodium 135 mmol/L (136-145)
[2023-03-16] MEDS: Doxycycline 100 MG in Sodium Chloride 0.9% 100 ML IVPB SCH ×2 (08:47→21:43)
[2023-03-16] MEDS: Carvedilol 25 MG TAB PO SCH ×2 (08:54→17:40)
[2023-03-16] MEDS: Fluconazole 100 MG TAB PO SCH (08:54)
[2023-03-16] MEDS: Amlodipine 10 MG TAB PO SCH (08:55)
[2023-03-16] MEDS: hydrALAZINE 25 MG TAB PO SCH ×3 (08:56→21:42)
[2023-03-16] MEDS: Lisinopril 20 MG TAB PO SCH ×2 (10:44→21:43)
[2023-03-16] MEDS: Lansoprazole 15 MG/5 ML (BATCHED)UDCUP PER TUBE SCH (10:44)
[2023-03-16] MEDS: Nystatin 500,000 UNITS/5 ML UDCUP SSW SCH ×4 (10:45→21:41)
[2023-03-16] MEDS: cloNIDine 0.1 MG TAB PO SCH ×3 (10:45→21:42)
[2023-03-16] MEDS: Polyethylene Glycol 3350 17 GM Packet PO SCH (10:46)
[2023-03-16] MEDS: Insulin NPH Human Isophane 100 UNITS/ML (10 ML VIAL) SC SCH ×2 (10:56→21:43)
[2023-03-16] MEDS: cefTRIAXone\\ROCEPHIN 1 GM in Sodium Chloride 0.9% 100 ML IVPB SCH (17:40)
[2023-03-16] MEDS: Atorvastatin Calcium 40 MG TAB PO SCH (21:43)
[2023-03-17] MEDS: Ipratropium/Albuterol 3 ML NEB NEB SCH ×4 (01:54→19:00)
[2023-03-17] MEDS: Scopolamine 1.5 mg/72 hour Patch TD SCH (02:40)
[2023-03-17 05:13] LABS: #Eosinphils 0.1 thou/uL (0.0-0.7); #Monocytes 0.7 thou/uL (0.11-0.59); #Neutrophils 2.4 thou/uL (1.40-6.50); %Basophils 0.5 % (0.0-1.0); %Eosinophils 2.7 % (0.0-10.0); %Lymphocytes 27.5 % (21.0-51.0); %Monocytes 14.9 % (0.0-10.0); %Neutrophils 54.2 % (42.0-75.0); Hemoglobin 9.2 g/dL (12.0-16.0); Mean Corpuscular HGB CONC 31.7 g/dL (32.0-36.0); Mean Corpuscular Hemoglobin 28.1 pg (27.0-31.0); Mean Corpuscular Volume 88.7 fl (78.0-98.0); Mean Platelet Volume 9.5 fL (7.4-10.4); Platelet Count 338 10x3/uL (130-400); RBC Distribution Width 13.9 % (11.5-14.5); Red Blood Cell (RBC) Count 3.27 mill/uL (4.20-5.40); White Blood Cell (WBC) Count 4.4 10x3/uL (4.8-10.8)
[2023-03-17 05:34] LABS: Anion Gap 10 mmol/L (10-20); BUN (Urea Nitrogen) 14 mg/dL (9.8-20.1); Calc. Creatinine Clearance 128 mL/min (70-130); Calcium 9.3 mg/dL (7.8-10.44); Carbon Dioxide 29 mmol/L (22-29); Chloride 102 mmol/L (98-107); Estimated GFR 107; Glucose 75 mg/dL (70-105); Potassium 3.8 mmol/L (3.5-5.1); Sodium 137 mmol/L (136-145)
[2023-03-17] MEDS: Metoclopramide HCl 10 MG/2 ML VIAL IVP SCH ×3 (06:03→21:19)
[2023-03-17] MEDS: Guaifenesin DM 100-10/5 ML UDCUP PO SCH ×5 (06:03→21:21)
[2023-03-17] MEDS: Polyethylene Glycol 3350 17 GM Packet PO SCH (08:45)
[2023-03-17] MEDS: hydrALAZINE 25 MG TAB PO SCH ×3 (10:03→21:21)
[2023-03-17] MEDS: Lansoprazole 15 MG/5 ML (BATCHED)UDCUP PER TUBE SCH (10:03)
[2023-03-17] MEDS: Lisinopril 20 MG TAB PO SCH ×2 (10:03→21:22)
[2023-03-17] MEDS: Fluconazole 100 MG TAB PO SCH (10:03)
[2023-03-17] MEDS: cloNIDine 0.1 MG TAB PO SCH ×3 (10:03→21:22)
[2023-03-17] MEDS: Nystatin 500,000 UNITS/5 ML UDCUP SSW SCH ×4 (10:03→21:21)
[2023-03-17] MEDS: Amlodipine 10 MG TAB PO SCH (10:04)
[2023-03-17] MEDS: Carvedilol 25 MG TAB PO SCH ×2 (10:04→17:25)
[2023-03-17] MEDS: Insulin NPH Human Isophane 100 UNITS/ML (10 ML VIAL) SC SCH ×2 (10:04→20:26)
[2023-03-17] MEDS: Doxycycline 100 MG in Sodium Chloride 0.9% 100 ML IVPB SCH ×2 (10:05→21:16)
[2023-03-17 14:37] LABS: Fungus Culture Final report (.)
[2023-03-17] MEDS: cefTRIAXone\\ROCEPHIN 1 GM in Sodium Chloride 0.9% 100 ML IVPB SCH (17:25)
[2023-03-17] MEDS: Atorvastatin Calcium 40 MG TAB PO SCH (21:22)
[2023-03-18] MEDS: Ipratropium/Albuterol 3 ML NEB NEB SCH ×4 (01:50→19:07)
[2023-03-18] MEDS: Guaifenesin DM 100-10/5 ML UDCUP PO SCH ×5 (05:09→20:53)
[2023-03-18] MEDS: Metoclopramide HCl 10 MG/2 ML VIAL IVP SCH ×3 (05:09→20:51)
[2023-03-18 05:24] LABS: #Eosinphils 0.1 thou/uL (0.0-0.7); #Monocytes 0.5 thou/uL (0.11-0.59); %Basophils 0.5 % (0.0-1.0); %Eosinophils 2.6 % (0.0-10.0); %Lymphocytes 31.2 % (21.0-51.0); %Monocytes 12.4 % (0.0-10.0); Hematocrit 28.8 % (36.0-47.0); Mean Corpuscular HGB CONC 31.3 g/dL (32.0-36.0); Mean Corpuscular Hemoglobin 27.7 pg (27.0-31.0); Mean Corpuscular Volume 88.6 fl (78.0-98.0); Mean Platelet Volume 9.5 fL (7.4-10.4); Platelet Count 314 10x3/uL (130-400); Red Blood Cell (RBC) Count 3.25 mill/uL (4.20-5.40); White Blood Cell (WBC) Count 3.8 10x3/uL (4.8-10.8)
[2023-03-18 05:50] LABS: Anion Gap 12 mmol/L (10-20); BUN (Urea Nitrogen) 12 mg/dL (9.8-20.1); Calc. Creatinine Clearance 116 mL/min (70-130); Calcium 9.3 mg/dL (7.8-10.44); Carbon Dioxide 26 mmol/L (22-29); Chloride 102 mmol/L (98-107); Estimated GFR 104; Glucose 242 mg/dL (70-105); Potassium 3.9 mmol/L (3.5-5.1); Sodium 136 mmol/L (136-145)
[2023-03-18] MEDS: HumaLOG 300 UNITS/3 ML VIAL SC PRN ×2 (05:54→13:29)
[2023-03-18] MEDS: Carvedilol 25 MG TAB PO SCH ×2 (08:55→17:38)
[2023-03-18] MEDS: hydrALAZINE 25 MG TAB PO SCH ×3 (08:55→20:52)
[2023-03-18] MEDS: Nystatin 500,000 UNITS/5 ML UDCUP SSW SCH ×3 (08:55→17:38)
[2023-03-18] MEDS: Lansoprazole 15 MG/5 ML (BATCHED)UDCUP PER TUBE SCH (08:55)
[2023-03-18] MEDS: Insulin NPH Human Isophane 100 UNITS/ML (10 ML VIAL) SC SCH ×2 (08:56→20:53)
[2023-03-18] MEDS: Lisinopril 20 MG TAB PO SCH ×2 (08:56→20:52)
[2023-03-18] MEDS: Fluconazole 100 MG TAB PO SCH (08:56)
[2023-03-18] MEDS: Amlodipine 10 MG TAB PO SCH (08:56)
[2023-03-18] MEDS: cloNIDine 0.1 MG TAB PO SCH ×3 (08:56→20:52)
[2023-03-18] MEDS: Polyethylene Glycol 3350 17 GM Packet PO SCH (08:57)
[2023-03-18] MEDS: Doxycycline 100 MG in Sodium Chloride 0.9% 100 ML IVPB SCH ×2 (08:59→20:51)
[2023-03-18] MEDS: cefTRIAXone\\ROCEPHIN 1 GM in Sodium Chloride 0.9% 100 ML IVPB SCH (17:38)
[2023-03-18] MEDS: Atorvastatin Calcium 40 MG TAB PO SCH (20:52)
[2023-03-19] MEDS: Ipratropium/Albuterol 3 ML NEB NEB SCH ×4 (02:04→19:30)
[2023-03-19] MEDS: Metoclopramide HCl 10 MG/2 ML VIAL IVP SCH ×3 (05:27→20:46)
[2023-03-19] MEDS: Guaifenesin DM 100-10/5 ML UDCUP PO SCH ×5 (05:27→20:46)
[2023-03-19 05:29] LABS: #Eosinphils 0.1 thou/uL (0.0-0.7); #Monocytes 0.5 thou/uL (0.11-0.59); #Neutrophils 2.5 thou/uL (1.40-6.50); %Basophils 0.7 % (0.0-1.0); %Eosinophils 2.3 % (0.0-10.0); %Lymphocytes 26.7 % (21.0-51.0); %Monocytes 12.1 % (0.0-10.0); Hematocrit 28.4 % (36.0-47.0); Hemoglobin 8.7 g/dL (12.0-16.0); Mean Corpuscular HGB CONC 30.6 g/dL (32.0-36.0); Mean Corpuscular Hemoglobin 27.5 pg (27.0-31.0); Mean Corpuscular Volume 89.9 fl (78.0-98.0); Mean Platelet Volume 9.7 fL (7.4-10.4); Platelet Count 337 10x3/uL (130-400); RBC Distribution Width 14.1 % (11.5-14.5); Red Blood Cell (RBC) Count 3.16 mill/uL (4.20-5.40); White Blood Cell (WBC) Count 4.4 10x3/uL (4.8-10.8)
[2023-03-19 05:53] LABS: Anion Gap 15 mmol/L (10-20); BUN (Urea Nitrogen) 13 mg/dL (9.8-20.1); Calc. Creatinine Clearance 120 mL/min (70-130); Calcium 9.5 mg/dL (7.8-10.44); Carbon Dioxide 26 mmol/L (22-29); Chloride 99 mmol/L (98-107); Estimated GFR 105; Glucose 178 mg/dL (70-105); Potassium 3.9 mmol/L (3.5-5.1); Sodium 136 mmol/L (136-145)
[2023-03-19] MEDS: Polyethylene Glycol 3350 17 GM Packet PO SCH (08:15)
[2023-03-19] MEDS: Fluconazole 100 MG TAB PO SCH (08:16)
[2023-03-19] MEDS: Insulin NPH Human Isophane 100 UNITS/ML (10 ML VIAL) SC SCH ×2 (08:16→20:45)
[2023-03-19] MEDS: Carvedilol 25 MG TAB PO SCH ×2 (08:16→17:08)
[2023-03-19] MEDS: Lisinopril 20 MG TAB PO SCH ×2 (08:17→20:45)
[2023-03-19] MEDS: Amlodipine 10 MG TAB PO SCH (08:17)
[2023-03-19] MEDS: cloNIDine 0.1 MG TAB PO SCH ×3 (08:17→20:45)
[2023-03-19] MEDS: hydrALAZINE 25 MG TAB PO SCH ×3 (08:17→20:45)
[2023-03-19] MEDS: Doxycycline 100 MG in Sodium Chloride 0.9% 100 ML IVPB SCH (08:32)
[2023-03-19] MEDS: Lansoprazole 15 MG/5 ML (BATCHED)UDCUP PER TUBE SCH (08:41)
[2023-03-19] MEDS: Atorvastatin Calcium 40 MG TAB PO SCH (20:45)
[2023-03-20] MEDS: Ipratropium/Albuterol 3 ML NEB NEB SCH ×5 (01:26→23:47)
[2023-03-20] MEDS: Scopolamine 1.5 mg/72 hour Patch TD SCH (02:26)
[2023-03-20] MEDS: Guaifenesin DM 100-10/5 ML UDCUP PO SCH ×5 (05:49→22:41)
[2023-03-20] MEDS: Carvedilol 25 MG TAB PO SCH ×2 (08:29→17:59)
[2023-03-20] MEDS: Fluconazole 100 MG TAB PO SCH (09:55)
[2023-03-20] MEDS: hydrALAZINE 25 MG TAB PO SCH ×3 (10:00→22:37)
[2023-03-20] MEDS: cloNIDine 0.1 MG TAB PO SCH ×3 (10:01→22:36)
[2023-03-20] MEDS: Amlodipine 10 MG TAB PO SCH (10:01)
[2023-03-20] MEDS: Lisinopril 20 MG TAB PO SCH ×2 (10:01→22:37)
[2023-03-20] MEDS: Insulin NPH Human Isophane 100 UNITS/ML (10 ML VIAL) SC SCH ×3 (10:02→22:27)
[2023-03-20] MEDS: Lansoprazole 15 MG/5 ML (BATCHED)UDCUP PER TUBE SCH (10:02)
[2023-03-20] MEDS: Metoclopramide HCl 10 MG/2 ML VIAL IVP SCH ×2 (10:03→22:36)
[2023-03-20] MEDS: Polyethylene Glycol 3350 17 GM Packet PO SCH (10:32)
[2023-03-20] MEDS: Atorvastatin Calcium 40 MG TAB PO SCH (22:37)
[2023-03-21] MEDS: Guaifenesin DM 100-10/5 ML UDCUP PO SCH ×5 (05:40→21:58)
[2023-03-21] MEDS: HumaLOG 300 UNITS/3 ML VIAL SC PRN ×2 (05:48→18:26)
[2023-03-21] MEDS: Ipratropium/Albuterol 3 ML NEB NEB SCH (06:35)
[2023-03-21] MEDS: Insulin NPH Human Isophane 100 UNITS/ML (10 ML VIAL) SC SCH ×2 (09:21→22:00)
[2023-03-21] MEDS: Lansoprazole 15 MG/5 ML (BATCHED)UDCUP PER TUBE SCH (09:22)
[2023-03-21] MEDS: Metoclopramide HCl 10 MG/2 ML VIAL IVP SCH ×2 (09:22→21:59)
[2023-03-21] MEDS: Carvedilol 25 MG TAB PO SCH ×2 (09:23→16:04)
[2023-03-21] MEDS: cloNIDine 0.1 MG TAB PO SCH ×4 (09:23→22:23)
[2023-03-21] MEDS: Lisinopril 20 MG TAB PO SCH ×3 (09:23→22:24)
[2023-03-21] MEDS: Amlodipine 10 MG TAB PO SCH (09:24)
[2023-03-21] MEDS: Fluconazole 100 MG TAB PO SCH (09:24)
[2023-03-21] MEDS: hydrALAZINE 25 MG TAB PO SCH ×5 (09:24→22:23)
[2023-03-21] MEDS: Polyethylene Glycol 3350 17 GM Packet PO SCH (09:25)
[2023-03-21] MEDS: Acetaminophen 325 MG TAB PER TUBE PRN ×2 (09:33→16:03)
[2023-03-21] MEDS ORDERED: Ipratropium/Albuterol 3 ML NEB NEB PRN (09:51)
[2023-03-21] MEDS: Atorvastatin Calcium 40 MG TAB PO SCH ×2 (21:59→22:24)
[2023-03-22 05:22] LABS: Hematocrit 30.1 % (36.0-47.0); Hemoglobin 9.7 g/dL (12.0-16.0); Mean Corpuscular HGB CONC 32.2 g/dL (32.0-36.0); Mean Corpuscular Hemoglobin 28.4 pg (27.0-31.0); Mean Platelet Volume 9.8 fL (7.4-10.4); Platelet Count 323 10x3/uL (130-400); RBC Distribution Width 14.3 % (11.5-14.5); Red Blood Cell (RBC) Count 3.42 mill/uL (4.20-5.40); White Blood Cell (WBC) Count 6.1 10x3/uL (4.8-10.8)
[2023-03-22 05:54] LABS: Anion Gap 14 mmol/L (10-20); BUN (Urea Nitrogen) 11 mg/dL (9.8-20.1); Calc. Creatinine Clearance 126 mL/min (70-130); Calcium 9.3 mg/dL (7.8-10.44); Carbon Dioxide 27 mmol/L (22-29); Chloride 98 mmol/L (98-107); Estimated GFR 107; Glucose 141 mg/dL (70-105); Potassium 3.8 mmol/L (3.5-5.1); Sodium 135 mmol/L (136-145)
[2023-03-22] MEDS: Guaifenesin DM 100-10/5 ML UDCUP PO SCH ×5 (06:05→21:28)
[2023-03-22] MEDS: Polyethylene Glycol 3350 17 GM Packet PO SCH (08:04)
[2023-03-22] MEDS: Metoclopramide HCl 10 MG/2 ML VIAL IVP SCH ×2 (09:12→21:29)
[2023-03-22] MEDS: Lisinopril 20 MG TAB PO SCH ×2 (09:12→21:29)
[2023-03-22] MEDS: Amlodipine 10 MG TAB PO SCH (09:12)
[2023-03-22] MEDS: Lansoprazole 15 MG/5 ML (BATCHED)UDCUP PER TUBE SCH (09:12)
[2023-03-22] MEDS: cloNIDine 0.1 MG TAB PO SCH ×3 (09:12→21:28)
[2023-03-22] MEDS: Carvedilol 25 MG TAB PO SCH ×2 (09:13→17:56)
[2023-03-22] MEDS: Fluconazole 100 MG TAB PO SCH (09:13)
[2023-03-22] MEDS: Insulin NPH Human Isophane 100 UNITS/ML (10 ML VIAL) SC SCH ×2 (09:13→21:30)
[2023-03-22] MEDS: hydrALAZINE 25 MG TAB PO SCH ×3 (09:53→21:28)
[2023-03-22] MEDS: Senokot S 8.6-50 MG TAB PO SCH (21:28)
[2023-03-22] MEDS: Atorvastatin Calcium 40 MG TAB PO SCH (21:29)
[2023-03-23] MEDS: Scopolamine 1.5 mg/72 hour Patch TD SCH (05:03)
[2023-03-23] MEDS: Guaifenesin DM 100-10/5 ML UDCUP PO SCH ×5 (06:24→22:04)
[2023-03-23] MEDS: LevoFLOXacin 750 MG TAB PO SCH (06:24)
[2023-03-23] MEDS: Polyethylene Glycol 3350 17 GM Packet PO SCH (07:28)
[2023-03-23] MEDS: hydrALAZINE 25 MG TAB PO SCH ×3 (09:54→22:02)
[2023-03-23] MEDS: Metoclopramide HCl 10 MG/2 ML VIAL IVP SCH ×2 (09:54→22:02)
[2023-03-23] MEDS: Senokot S 8.6-50 MG TAB PO SCH ×2 (09:54→22:04)
[2023-03-23] MEDS: Insulin NPH Human Isophane 100 UNITS/ML (10 ML VIAL) SC SCH ×2 (09:55→22:03)
[2023-03-23] MEDS: cloNIDine 0.1 MG TAB PO SCH ×3 (09:55→22:03)
[2023-03-23] MEDS: Lisinopril 20 MG TAB PO SCH ×2 (09:55→22:03)
[2023-03-23] MEDS: Carvedilol 25 MG TAB PO SCH ×2 (09:55→16:06)
[2023-03-23] MEDS: Amlodipine 10 MG TAB PO SCH (09:55)
[2023-03-23] MEDS: Lansoprazole 15 MG/5 ML (BATCHED)UDCUP PER TUBE SCH (09:57)
[2023-03-23] MEDS: Dextrose 5% in Water 1,000 ML IV PRN (12:21)
[2023-03-23] MEDS: Acetaminophen 325 MG TAB PER TUBE PRN (13:06)
[2023-03-23] MEDS: Atorvastatin Calcium 40 MG TAB PO SCH (22:04)
[2023-03-24] MEDS: Guaifenesin DM 100-10/5 ML UDCUP PO SCH ×5 (05:14→21:21)
[2023-03-24] MEDS: LevoFLOXacin 750 MG TAB PO SCH (05:14)
[2023-03-24] MEDS: HumaLOG 300 UNITS/3 ML VIAL SC PRN ×3 (05:15→18:25)
[2023-03-24] MEDS: Polyethylene Glycol 3350 17 GM Packet PO SCH (09:26)
[2023-03-24] MEDS: Carvedilol 25 MG TAB PO SCH ×2 (09:35→17:51)
[2023-03-24] MEDS: hydrALAZINE 25 MG TAB PO SCH ×3 (09:38→21:22)
[2023-03-24] MEDS: Lansoprazole 15 MG/5 ML (BATCHED)UDCUP PER TUBE SCH (09:39)
[2023-03-24] MEDS: cloNIDine 0.1 MG TAB PO SCH ×3 (09:39→21:22)
[2023-03-24] MEDS: Metoclopramide HCl 10 MG/2 ML VIAL IVP SCH ×2 (09:39→21:23)
[2023-03-24] MEDS: Amlodipine 10 MG TAB PO SCH (09:39)
[2023-03-24] MEDS: Insulin NPH Human Isophane 100 UNITS/ML (10 ML VIAL) SC SCH ×2 (09:40→21:23)
[2023-03-24] MEDS: Lisinopril 20 MG TAB PO SCH ×2 (09:40→21:22)
[2023-03-24] MEDS: Senokot S 8.6-50 MG TAB PO SCH ×2 (09:40→21:23)
[2023-03-24] MEDS: Atorvastatin Calcium 40 MG TAB PO SCH (21:23)
[2023-03-25] MEDS: Guaifenesin DM 100-10/5 ML UDCUP PO SCH ×5 (04:59→22:09)
[2023-03-25] MEDS: LevoFLOXacin 750 MG TAB PO SCH (05:00)
[2023-03-25 05:19] LABS: Hematocrit 30.5 % (36.0-47.0); Hemoglobin 9.7 g/dL (12.0-16.0); Mean Corpuscular HGB CONC 31.8 g/dL (32.0-36.0); Mean Corpuscular Hemoglobin 28.1 pg (27.0-31.0); Mean Corpuscular Volume 88.4 fl (78.0-98.0); Mean Platelet Volume 10.1 fL (7.4-10.4); Platelet Count 292 10x3/uL (130-400); RBC Distribution Width 14.5 % (11.5-14.5); Red Blood Cell (RBC) Count 3.45 mill/uL (4.20-5.40); White Blood Cell (WBC) Count 5.1 10x3/uL (4.8-10.8)
[2023-03-25 05:46] LABS: Anion Gap 8 mmol/L (10-20); BUN (Urea Nitrogen) 14 mg/dL (9.8-20.1); Calc. Creatinine Clearance 120 mL/min (70-130); Calcium 9.5 mg/dL (7.8-10.44); Carbon Dioxide 30 mmol/L (22-29); Chloride 103 mmol/L (98-107); Estimated GFR 105; Glucose 147 mg/dL (70-105); Potassium 3.8 mmol/L (3.5-5.1); Sodium 137 mmol/L (136-145)
[2023-03-25] MEDS: HumaLOG 300 UNITS/3 ML VIAL SC PRN (06:23)
[2023-03-25] MEDS: Lansoprazole 15 MG/5 ML (BATCHED)UDCUP PER TUBE SCH (09:41)
[2023-03-25] MEDS: Amlodipine 10 MG TAB PO SCH (09:43)
[2023-03-25] MEDS: Metoclopramide HCl 10 MG/2 ML VIAL IVP SCH ×2 (09:43→22:10)
[2023-03-25] MEDS: Lisinopril 20 MG TAB PO SCH ×2 (09:43→22:09)
[2023-03-25] MEDS: hydrALAZINE 25 MG TAB PO SCH ×3 (09:43→22:08)
[2023-03-25] MEDS: Carvedilol 25 MG TAB PO SCH ×2 (09:43→17:24)
[2023-03-25] MEDS: cloNIDine 0.1 MG TAB PO SCH ×3 (09:43→22:09)
[2023-03-25] MEDS: Senokot S 8.6-50 MG TAB PO SCH ×2 (09:43→22:10)
[2023-03-25] MEDS: Polyethylene Glycol 3350 17 GM Packet PO SCH (09:45)
[2023-03-25] MEDS: Insulin NPH Human Isophane 100 UNITS/ML (10 ML VIAL) SC SCH ×2 (10:36→22:12)
[2023-03-25] MEDS: Atorvastatin Calcium 40 MG TAB PO SCH (22:10)
[2023-03-26] MEDS: HumaLOG 300 UNITS/3 ML VIAL SC PRN ×3 (00:30→19:16)
[2023-03-26] MEDS: Scopolamine 1.5 mg/72 hour Patch TD SCH (03:31)
[2023-03-26] MEDS: LevoFLOXacin 750 MG TAB PO SCH (05:54)
[2023-03-26] MEDS: Guaifenesin DM 100-10/5 ML UDCUP PO SCH ×5 (05:54→21:23)
[2023-03-26] MEDS: cloNIDine 0.1 MG TAB PO SCH ×3 (09:40→21:24)
[2023-03-26] MEDS: Lisinopril 20 MG TAB PO SCH ×2 (09:40→21:24)
[2023-03-26] MEDS: Carvedilol 25 MG TAB PO SCH ×2 (09:40→17:50)
[2023-03-26] MEDS: Senokot S 8.6-50 MG TAB PO SCH ×2 (09:41→21:24)
[2023-03-26] MEDS: hydrALAZINE 25 MG TAB PO SCH ×3 (09:41→21:23)
[2023-03-26] MEDS: Lansoprazole 15 MG/5 ML (BATCHED)UDCUP PER TUBE SCH (09:41)
[2023-03-26] MEDS: Amlodipine 10 MG TAB PO SCH (09:41)
[2023-03-26] MEDS: Insulin NPH Human Isophane 100 UNITS/ML (10 ML VIAL) SC SCH ×2 (09:54→21:25)
[2023-03-26] MEDS: Metoclopramide HCl 10 MG/2 ML VIAL IVP SCH ×2 (09:55→21:24)
[2023-03-26] MEDS: Polyethylene Glycol 3350 17 GM Packet PO SCH (09:58)
[2023-03-26] MEDS: Atorvastatin Calcium 40 MG TAB PO SCH (21:24)
[2023-03-27] MEDS: Guaifenesin DM 100-10/5 ML UDCUP PO SCH ×5 (05:26→20:49)
[2023-03-27] MEDS: LevoFLOXacin 750 MG TAB PO SCH (05:27)
[2023-03-27] MEDS: Carvedilol 25 MG TAB PO SCH ×2 (10:14→17:06)
[2023-03-27] MEDS: Senokot S 8.6-50 MG TAB PO SCH ×2 (10:14→20:48)
[2023-03-27] MEDS: Lisinopril 20 MG TAB PO SCH ×2 (10:14→20:48)
[2023-03-27] MEDS: Amlodipine 10 MG TAB PO SCH (10:14)
[2023-03-27] MEDS: cloNIDine 0.1 MG TAB PO SCH ×3 (10:15→20:47)
[2023-03-27] MEDS: Lansoprazole 15 MG/5 ML (BATCHED)UDCUP PER TUBE SCH (10:15)
[2023-03-27] MEDS: hydrALAZINE 25 MG TAB PO SCH ×3 (10:15→20:47)
[2023-03-27] MEDS: Metoclopramide HCl 10 MG/2 ML VIAL IVP SCH ×2 (10:16→20:48)
[2023-03-27] MEDS: Polyethylene Glycol 3350 17 GM Packet PO SCH (10:16)
[2023-03-27] MEDS: Insulin NPH Human Isophane 100 UNITS/ML (10 ML VIAL) SC SCH ×2 (10:17→20:49)
[2023-03-27] MEDS: HumaLOG 300 UNITS/3 ML VIAL SC PRN ×2 (11:30→17:06)
[2023-03-27] MEDS: Atorvastatin Calcium 40 MG TAB PO SCH (20:48)
[2023-03-28] MEDS: Guaifenesin DM 100-10/5 ML UDCUP PO SCH ×5 (06:22→21:04)
[2023-03-28] MEDS: Amlodipine 10 MG TAB PO SCH (08:30)
[2023-03-28] MEDS: cloNIDine 0.1 MG TAB PO SCH ×3 (08:30→21:05)
[2023-03-28] MEDS: hydrALAZINE 25 MG TAB PO SCH ×3 (08:32→21:05)
[2023-03-28] MEDS: Lansoprazole 15 MG/5 ML (BATCHED)UDCUP PER TUBE SCH (08:32)
[2023-03-28] MEDS: Senokot S 8.6-50 MG TAB PO SCH ×2 (08:33→21:05)
[2023-03-28] MEDS: Metoclopramide HCl 10 MG/2 ML VIAL IVP SCH ×2 (08:34→21:05)
[2023-03-28] MEDS: Carvedilol 25 MG TAB PO SCH ×2 (08:34→17:50)
[2023-03-28] MEDS: Lisinopril 20 MG TAB PO SCH ×2 (08:34→21:06)
[2023-03-28] MEDS: Insulin NPH Human Isophane 100 UNITS/ML (10 ML VIAL) SC SCH ×2 (08:35→21:06)
[2023-03-28] MEDS: Polyethylene Glycol 3350 17 GM Packet PO SCH (08:35)
[2023-03-28] MEDS: Atorvastatin Calcium 40 MG TAB PO SCH (21:05)
[2023-03-28] MEDS: HumaLOG 300 UNITS/3 ML VIAL SC PRN (23:40)
[2023-03-28] MEDS: Scopolamine 1.5 mg/72 hour Patch TD SCH (23:40)
[2023-03-29] MEDS: Guaifenesin DM 100-10/5 ML UDCUP PO SCH ×5 (06:20→23:27)
[2023-03-29] MEDS: Senokot S 8.6-50 MG TAB PO SCH ×2 (09:15→20:41)
[2023-03-29] MEDS: cloNIDine 0.1 MG TAB PO SCH ×3 (09:15→20:41)
[2023-03-29] MEDS: Lisinopril 20 MG TAB PO SCH ×2 (09:15→20:41)
[2023-03-29] MEDS: hydrALAZINE 25 MG TAB PO SCH ×3 (09:15→20:41)
[2023-03-29] MEDS: Amlodipine 10 MG TAB PO SCH (09:16)
[2023-03-29] MEDS: Metoclopramide HCl 10 MG/2 ML VIAL IVP SCH ×2 (09:16→20:41)
[2023-03-29] MEDS: Polyethylene Glycol 3350 17 GM Packet PO SCH (09:16)
[2023-03-29] MEDS: Carvedilol 25 MG TAB PO SCH ×2 (09:16→16:36)
[2023-03-29] MEDS: Lansoprazole 15 MG/5 ML (BATCHED)UDCUP PER TUBE SCH (09:16)
[2023-03-29] MEDS: Insulin NPH Human Isophane 100 UNITS/ML (10 ML VIAL) SC SCH ×2 (09:17→20:41)
[2023-03-29] MEDS: Atorvastatin Calcium 40 MG TAB PO SCH (20:41)
[2023-03-29] MEDS: HumaLOG 300 UNITS/3 ML VIAL SC PRN (20:41)
[2023-03-30] MEDS: Guaifenesin DM 100-10/5 ML UDCUP PO SCH ×5 (05:48→21:52)
[2023-03-30] MEDS: Polyethylene Glycol 3350 17 GM Packet PO SCH (09:34)
[2023-03-30] MEDS: Carvedilol 25 MG TAB PO SCH ×2 (09:35→18:08)
[2023-03-30] MEDS: Amlodipine 10 MG TAB PO SCH (09:35)
[2023-03-30] MEDS: cloNIDine 0.1 MG TAB PO SCH ×3 (09:36→21:50)
[2023-03-30] MEDS: Lisinopril 20 MG TAB PO SCH ×2 (09:36→21:51)
[2023-03-30] MEDS: hydrALAZINE 25 MG TAB PO SCH ×3 (09:36→21:50)
[2023-03-30] MEDS: Metoclopramide HCl 10 MG/2 ML VIAL IVP SCH ×2 (09:37→21:52)
[2023-03-30] MEDS: Senokot S 8.6-50 MG TAB PO SCH ×2 (09:37→21:52)
[2023-03-30] MEDS: Insulin NPH Human Isophane 100 UNITS/ML (10 ML VIAL) SC SCH ×2 (09:48→21:51)
[2023-03-30] MEDS: Lansoprazole 15 MG/5 ML (BATCHED)UDCUP PER TUBE SCH (10:03)
[2023-03-30] MEDS: Atorvastatin Calcium 40 MG TAB PO SCH (21:50)
[2023-03-30] MEDS: HumaLOG 300 UNITS/3 ML VIAL SC PRN (21:51)
[2023-03-31] MEDS: Guaifenesin DM 100-10/5 ML UDCUP PO SCH ×5 (05:14→21:40)
[2023-03-31] MEDS: hydrALAZINE 25 MG TAB PO SCH ×3 (09:09→21:39)
[2023-03-31] MEDS: Lisinopril 20 MG TAB PO SCH ×2 (09:09→21:39)
[2023-03-31] MEDS: Lansoprazole 15 MG/5 ML (BATCHED)UDCUP PER TUBE SCH (09:09)
[2023-03-31] MEDS: Amlodipine 10 MG TAB PO SCH (09:09)
[2023-03-31] MEDS: Carvedilol 25 MG TAB PO SCH ×2 (09:10→16:44)
[2023-03-31] MEDS: cloNIDine 0.1 MG TAB PO SCH ×3 (09:10→21:40)
[2023-03-31] MEDS: Senokot S 8.6-50 MG TAB PO SCH ×2 (09:11→21:40)
[2023-03-31] MEDS: Metoclopramide HCl 10 MG/2 ML VIAL IVP SCH ×2 (09:11→21:40)
[2023-03-31] MEDS: Polyethylene Glycol 3350 17 GM Packet PO SCH (09:11)
[2023-03-31] MEDS: Insulin NPH Human Isophane 100 UNITS/ML (10 ML VIAL) SC SCH ×2 (09:37→21:40)
[2023-03-31 19:07] LABS: Bilirubin Negative (Negative); Blood, Urine 3+ (Negative); Clarity Extra Turbid (Clear); Glucose, Urine (Dipstick) Normal (Negative); Ketone, Urine Negative (Negative); Leukocyte 75 Leu/uL (Negative); Nitrite Negative (Negative); Protein, Urine (Dipstick) 100 mg/dL (Neg-Trace); RBC/HPF Greater than 50 HPF (0-3); Renal Epithelial 0-3 HPF (None Seen); Specific Gravity, Urine 1.024 (1.002-1.036); Squamous Epithelial 0-3 HPF (0-3); Urobilinogen Normal mg/dL (Less than 2)
[2023-03-31 19:15] LABS: Bacteria/HPF Rare-Few HPF (None Seen)
[2023-03-31 19:16] LABS: Calcium Oxalate Crystals Rare HPF (None Seen)
[2023-03-31] MEDS: Atorvastatin Calcium 40 MG TAB PO SCH (21:39)
[2023-03-31] MEDS: Scopolamine 1.5 mg/72 hour Patch TD SCH (21:41)
[2023-04-01] MEDS: Guaifenesin DM 100-10/5 ML UDCUP PO SCH ×5 (06:02→21:22)
[2023-04-01 06:11] LABS: #Basophils 0.1 thou/uL (0.0-0.2); #Eosinphils 0.2 thou/uL (0.0-0.7); #Monocytes 0.7 thou/uL (0.11-0.59); #Neutrophils 3.6 thou/uL (1.40-6.50); %Basophils 0.8 % (0.0-1.0); %Eosinophils 2.4 % (0.0-10.0); %Lymphocytes 29.1 % (21.0-51.0); %Monocytes 10.8 % (0.0-10.0); %Neutrophils 56.7 % (42.0-75.0); Hematocrit 32.3 % (36.0-47.0); Hemoglobin 10.7 g/dL (12.0-16.0); Mean Corpuscular HGB CONC 33.1 g/dL (32.0-36.0); Mean Corpuscular Hemoglobin 28.8 pg (27.0-31.0); Mean Corpuscular Volume 87.1 fl (78.0-98.0); Mean Platelet Volume 9.3 fL (7.4-10.4); Platelet Count 267 10x3/uL (130-400); Red Blood Cell (RBC) Count 3.71 mill/uL (4.20-5.40); White Blood Cell (WBC) Count 6.3 10x3/uL (4.8-10.8)
[2023-04-01] MEDS: Lisinopril 20 MG TAB PO SCH ×2 (08:10→21:23)
[2023-04-01] MEDS: Amlodipine 10 MG TAB PO SCH (08:10)
[2023-04-01] MEDS: Senokot S 8.6-50 MG TAB PO SCH ×2 (08:10→21:22)
[2023-04-01] MEDS: Metoclopramide HCl 10 MG/2 ML VIAL IVP SCH ×2 (08:10→21:23)
[2023-04-01] MEDS: Insulin NPH Human Isophane 100 UNITS/ML (10 ML VIAL) SC SCH ×2 (08:10→21:23)
[2023-04-01] MEDS: Carvedilol 25 MG TAB PO SCH ×2 (08:10→17:59)
[2023-04-01] MEDS: Lansoprazole 15 MG/5 ML (BATCHED)UDCUP PER TUBE SCH (08:10)
[2023-04-01] MEDS: hydrALAZINE 25 MG TAB PO SCH ×3 (08:11→21:30)
[2023-04-01] MEDS: cloNIDine 0.1 MG TAB PO SCH ×3 (08:11→21:23)
[2023-04-01 09:42] LABS: #Eosinphils 0.1 thou/uL (0.0-0.7); #Monocytes 0.5 thou/uL (0.11-0.59); #Neutrophils 3.1 thou/uL (1.40-6.50); %Basophils 0.8 % (0.0-1.0); %Eosinophils 2.5 % (0.0-10.0); %Lymphocytes 27.5 % (21.0-51.0); %Monocytes 8.8 % (0.0-10.0); %Neutrophils 60.2 % (42.0-75.0); Hematocrit 31.4 % (36.0-47.0); Hemoglobin 9.9 g/dL (12.0-16.0); Mean Corpuscular HGB CONC 31.5 g/dL (32.0-36.0); Mean Corpuscular Hemoglobin 28.5 pg (27.0-31.0); Mean Platelet Volume 9.5 fL (7.4-10.4); Platelet Count 237 10x3/uL (130-400); RBC Distribution Width 15.2 % (11.5-14.5); Red Blood Cell (RBC) Count 3.47 mill/uL (4.20-5.40); White Blood Cell (WBC) Count 5.1 10x3/uL (4.8-10.8)
[2023-04-01 09:44] LABS: Mean Corpuscular Volume 90.5 fl (78.0-98.0)
[2023-04-01] MEDS: Polyethylene Glycol 3350 17 GM Packet PO SCH (10:55)
[2023-04-01] MEDS: Atorvastatin Calcium 40 MG TAB PO SCH (21:23)
[2023-04-01] MEDS: Acetaminophen 325 MG TAB PER TUBE PRN (21:48)
[2023-04-02] MEDS: Guaifenesin DM 100-10/5 ML UDCUP PO SCH ×5 (05:46→21:11)
[2023-04-02] MEDS: Polyethylene Glycol 3350 17 GM Packet PO SCH (08:53)
[2023-04-02] MEDS: Insulin NPH Human Isophane 100 UNITS/ML (10 ML VIAL) SC SCH ×2 (08:59→21:11)
[2023-04-02] MEDS: Amlodipine 10 MG TAB PO SCH (08:59)
[2023-04-02] MEDS: cloNIDine 0.1 MG TAB PO SCH ×3 (08:59→21:10)
[2023-04-02] MEDS: Carvedilol 25 MG TAB PO SCH ×2 (08:59→16:00)
[2023-04-02] MEDS: Senokot S 8.6-50 MG TAB PO SCH ×2 (08:59→21:11)
[2023-04-02] MEDS: hydrALAZINE 25 MG TAB PO SCH ×3 (08:59→21:10)
[2023-04-02] MEDS: Metoclopramide HCl 10 MG/2 ML VIAL IVP SCH ×2 (08:59→21:11)
[2023-04-02] MEDS: Lansoprazole 15 MG/5 ML (BATCHED)UDCUP PER TUBE SCH (08:59)
[2023-04-02] MEDS: Lisinopril 20 MG TAB PO SCH ×2 (08:59→21:10)
[2023-04-02] MEDS: Atorvastatin Calcium 40 MG TAB PO SCH (21:10)
[2023-04-02] MEDS: HumaLOG 300 UNITS/3 ML VIAL SC PRN (21:10)
[2023-04-03 05:08] LABS: #Eosinphils 0.1 thou/uL (0.0-0.7); #Monocytes 0.6 thou/uL (0.11-0.59); #Neutrophils 3.4 thou/uL (1.40-6.50); %Basophils 0.5 % (0.0-1.0); %Eosinophils 2.4 % (0.0-10.0); %Lymphocytes 29.6 % (21.0-51.0); %Monocytes 9.7 % (0.0-10.0); %Neutrophils 57.6 % (42.0-75.0); Hematocrit 31.4 % (36.0-47.0); Hemoglobin 10.3 g/dL (12.0-16.0); Mean Corpuscular HGB CONC 32.8 g/dL (32.0-36.0); Mean Corpuscular Hemoglobin 28.6 pg (27.0-31.0); Mean Corpuscular Volume 87.2 fl (78.0-98.0); Mean Platelet Volume 9.7 fL (7.4-10.4); Platelet Count 231 10x3/uL (130-400); RBC Distribution Width 15.3 % (11.5-14.5); White Blood Cell (WBC) Count 5.9 10x3/uL (4.8-10.8)
[2023-04-03] MEDS: Guaifenesin DM 100-10/5 ML UDCUP PO SCH ×5 (05:17→21:54)
[2023-04-03 05:28] LABS: Anion Gap 11 mmol/L (10-20); BUN (Urea Nitrogen) 20 mg/dL (9.8-20.1); Calc. Creatinine Clearance 120 mL/min (70-130); Calcium 9.8 mg/dL (7.8-10.44); Carbon Dioxide 28 mmol/L (22-29); Chloride 103 mmol/L (98-107); Estimated GFR 105; Glucose 123 mg/dL (70-105); Potassium 3.6 mmol/L (3.5-5.1); Sodium 138 mmol/L (136-145)
[2023-04-03] MEDS: Lansoprazole 15 MG/5 ML (BATCHED)UDCUP PER TUBE SCH (08:23)
[2023-04-03] MEDS: Senokot S 8.6-50 MG TAB PO SCH ×2 (08:23→21:56)
[2023-04-03] MEDS: Lisinopril 20 MG TAB PO SCH ×2 (08:24→21:56)
[2023-04-03] MEDS: Carvedilol 25 MG TAB PO SCH ×2 (08:24→15:59)
[2023-04-03] MEDS: Polyethylene Glycol 3350 17 GM Packet PO SCH (08:24)
[2023-04-03] MEDS: hydrALAZINE 25 MG TAB PO SCH ×3 (08:24→21:56)
[2023-04-03] MEDS: cloNIDine 0.1 MG TAB PO SCH ×3 (08:24→21:55)
[2023-04-03] MEDS: Amlodipine 10 MG TAB PO SCH (08:24)
[2023-04-03] MEDS: Metoclopramide HCl 10 MG/2 ML VIAL IVP SCH ×2 (08:24→22:13)
[2023-04-03] MEDS: Insulin NPH Human Isophane 100 UNITS/ML (10 ML VIAL) SC SCH ×2 (08:56→22:12)
[2023-04-03] MEDS: HumaLOG 300 UNITS/3 ML VIAL SC PRN (17:29)
[2023-04-03 19:19] LABS: Bacteria/HPF None Seen HPF (None Seen); Bilirubin Negative (Negative); Blood, Urine 3+ (Negative); Calcium Oxalate Crystals Rare HPF (None Seen); Clarity Turbid (Clear); Glucose, Urine (Dipstick) Normal (Negative); Ketone, Urine Negative (Negative); Leukocyte 250 Leu/uL (Negative); Nitrite Negative (Negative); Protein, Urine (Dipstick) 100 mg/dL (Neg-Trace); RBC/HPF Greater than 50 HPF (0-3); Specific Gravity, Urine 1.025 (1.002-1.036); Squamous Epithelial None Seen HPF (0-3); Urobilinogen Normal mg/dL (Less than 2)
[2023-04-03] MEDS: Atorvastatin Calcium 40 MG TAB PO SCH (21:54)
[2023-04-04] MEDS: Scopolamine 1.5 mg/72 hour Patch TD SCH ×2 (02:42)
[2023-04-04] MEDS: HumaLOG 300 UNITS/3 ML VIAL SC PRN ×3 (06:39→17:39)
[2023-04-04] MEDS: Guaifenesin DM 100-10/5 ML UDCUP PO SCH ×5 (06:40→22:35)
[2023-04-04] MEDS ORDERED: Haloperidol Lactate 5 MG/ML VIAL SLOW IVP SCH (08:00)
[2023-04-04] MEDS: Insulin NPH Human Isophane 100 UNITS/ML (10 ML VIAL) SC SCH ×2 (08:47→22:35)
[2023-04-04] MEDS: cloNIDine 0.1 MG TAB PO SCH ×3 (08:48→22:34)
[2023-04-04] MEDS: Polyethylene Glycol 3350 17 GM Packet PO SCH (08:49)
[2023-04-04] MEDS: Senokot S 8.6-50 MG TAB PO SCH ×2 (08:49→22:34)
[2023-04-04] MEDS: Lisinopril 20 MG TAB PO SCH ×2 (08:49→22:34)
[2023-04-04] MEDS: Metoclopramide HCl 10 MG/2 ML VIAL IVP SCH ×2 (08:49→22:35)
[2023-04-04] MEDS: Amlodipine 10 MG TAB PO SCH (08:49)
[2023-04-04] MEDS: Carvedilol 25 MG TAB PO SCH ×2 (08:49→17:02)
[2023-04-04] MEDS: Lansoprazole 15 MG/5 ML (BATCHED)UDCUP PER TUBE SCH (08:49)
[2023-04-04] MEDS: hydrALAZINE 25 MG TAB PO SCH ×3 (09:02→22:34)
[2023-04-04] MEDS: Lorazepam 2 MG/ML VIAL SLOW IVP PRN ×2 (11:00→14:50)
[2023-04-04] MEDS: Sodium Chloride 0.9% 1,000 ML IV SCH (17:01)
[2023-04-04] MEDS: Acetaminophen 325 MG TAB PER TUBE PRN (17:39)
[2023-04-04] MEDS: Atorvastatin Calcium 40 MG TAB PO SCH (22:34)
[2023-04-05] MEDS: Sodium Chloride 0.9% 1,000 ML IV SCH (03:23)
[2023-04-05] MEDS: Guaifenesin DM 100-10/5 ML UDCUP PO SCH ×5 (06:16→22:20)
[2023-04-05] MEDS: Amlodipine 10 MG TAB PO SCH (08:32)
[2023-04-05] MEDS: Carvedilol 25 MG TAB PO SCH ×2 (08:32→18:03)
[2023-04-05] MEDS: hydrALAZINE 25 MG TAB PO SCH ×3 (08:33→22:20)
[2023-04-05] MEDS: cloNIDine 0.1 MG TAB PO SCH ×3 (08:33→22:22)
[2023-04-05] MEDS: Lansoprazole 15 MG/5 ML (BATCHED)UDCUP PER TUBE SCH (08:34)
[2023-04-05] MEDS: Polyethylene Glycol 3350 17 GM Packet PO SCH (08:34)
[2023-04-05] MEDS: Lisinopril 20 MG TAB PO SCH ×2 (08:34→22:22)
[2023-04-05] MEDS: Metoclopramide HCl 10 MG/2 ML VIAL IVP SCH ×2 (08:34→22:20)
[2023-04-05] MEDS: Insulin NPH Human Isophane 100 UNITS/ML (10 ML VIAL) SC SCH ×2 (08:35→22:23)
[2023-04-05] MEDS: Senokot S 8.6-50 MG TAB PO SCH ×2 (08:35→22:22)
[2023-04-05 09:06] LABS: Anion Gap 13 mmol/L (10-20); BUN (Urea Nitrogen) 16 mg/dL (9.8-20.1); Calc. Creatinine Clearance 128 mL/min (70-130); Calcium 9.7 mg/dL (7.8-10.44); Carbon Dioxide 23 mmol/L (22-29); Chloride 102 mmol/L (98-107); Estimated GFR 107; Glucose 118 mg/dL (70-105); Magnesium 1.6 mg/dL (1.6-2.6); Potassium 4.1 mmol/L (3.5-5.1); Sodium 134 mmol/L (136-145)
[2023-04-05 11:19] LABS: #Eosinphils 0.2 thou/uL (0.0-0.7); #Monocytes 0.6 thou/uL (0.11-0.59); #Neutrophils 4.7 thou/uL (1.40-6.50); %Basophils 0.4 % (0.0-1.0); %Eosinophils 2.5 % (0.0-10.0); %Lymphocytes 19.9 % (21.0-51.0); %Neutrophils 68.1 % (42.0-75.0); Hematocrit 31.4 % (36.0-47.0); Hemoglobin 10.1 g/dL (12.0-16.0); Mean Corpuscular HGB CONC 32.2 g/dL (32.0-36.0); Mean Corpuscular Hemoglobin 28.7 pg (27.0-31.0); Mean Corpuscular Volume 89.2 fl (78.0-98.0); Mean Platelet Volume 9.8 fL (7.4-10.4); Platelet Count 221 10x3/uL (130-400); RBC Distribution Width 15.7 % (11.5-14.5); Red Blood Cell (RBC) Count 3.52 mill/uL (4.20-5.40); White Blood Cell (WBC) Count 6.9 10x3/uL (4.8-10.8)
[2023-04-05] MEDS ORDERED: Magnesium 2 GM/50 ML(in water) 2 GM in Premix Bag 1 BAG IVPB SCH (12:00)
[2023-04-05] MEDS: Atorvastatin Calcium 40 MG TAB PO SCH (22:22)
[2023-04-06] MEDS: Guaifenesin DM 100-10/5 ML UDCUP PO SCH ×5 (06:31→21:37)
[2023-04-06] MEDS: Amlodipine 10 MG TAB PO SCH (08:37)
[2023-04-06] MEDS: hydrALAZINE 25 MG TAB PO SCH ×3 (08:37→21:38)
[2023-04-06] MEDS: Lisinopril 20 MG TAB PO SCH ×2 (08:38→21:39)
[2023-04-06] MEDS: cloNIDine 0.1 MG TAB PO SCH ×3 (08:38→21:39)
[2023-04-06] MEDS: Carvedilol 25 MG TAB PO SCH ×2 (08:38→16:55)
[2023-04-06] MEDS: Polyethylene Glycol 3350 17 GM Packet PO SCH (08:39)
[2023-04-06] MEDS: Lansoprazole 15 MG/5 ML (BATCHED)UDCUP PER TUBE SCH (08:39)
[2023-04-06] MEDS: Metoclopramide HCl 10 MG/2 ML VIAL IVP SCH ×2 (08:39→21:38)
[2023-04-06] MEDS: Senokot S 8.6-50 MG TAB PO SCH ×2 (08:39→21:39)
[2023-04-06] MEDS: Insulin NPH Human Isophane 100 UNITS/ML (10 ML VIAL) SC SCH ×2 (08:41→21:39)
[2023-04-06] MEDS: HumaLOG 300 UNITS/3 ML VIAL SC PRN ×2 (17:03→21:40)
[2023-04-06] MEDS: Atorvastatin Calcium 40 MG TAB PO SCH (21:39)
[2023-04-07] MEDS: Scopolamine 1.5 mg/72 hour Patch TD SCH (04:13)
[2023-04-07] MEDS: Guaifenesin DM 100-10/5 ML UDCUP PO SCH ×5 (05:13→22:39)
[2023-04-07] MEDS: Carvedilol 25 MG TAB PO SCH ×2 (09:40→17:38)
[2023-04-07] MEDS: Lisinopril 20 MG TAB PO SCH ×2 (09:41→22:40)
[2023-04-07] MEDS: hydrALAZINE 25 MG TAB PO SCH ×3 (09:41→22:39)
[2023-04-07] MEDS: cloNIDine 0.1 MG TAB PO SCH ×3 (09:41→22:40)
[2023-04-07] MEDS: Amlodipine 10 MG TAB PO SCH (09:42)
[2023-04-07] MEDS: Insulin NPH Human Isophane 100 UNITS/ML (10 ML VIAL) SC SCH ×2 (09:42→22:41)
[2023-04-07] MEDS: Metoclopramide HCl 10 MG/2 ML VIAL IVP SCH ×2 (09:42→22:40)
[2023-04-07] MEDS: Senokot S 8.6-50 MG TAB PO SCH ×2 (09:43→22:40)
[2023-04-07] MEDS: Polyethylene Glycol 3350 17 GM Packet PO SCH (09:43)
[2023-04-07] MEDS: Lansoprazole 15 MG/5 ML (BATCHED)UDCUP PER TUBE SCH (11:13)
[2023-04-07] MEDS: Atorvastatin Calcium 40 MG TAB PO SCH (22:39)
[2023-04-08] MEDS: Guaifenesin DM 100-10/5 ML UDCUP PO SCH ×6 (06:08→21:02)
[2023-04-08] MEDS: Metoclopramide HCl 10 MG/2 ML VIAL IVP SCH ×2 (09:31→09:32)
[2023-04-08] MEDS: Amlodipine 10 MG TAB PO SCH (09:31)
[2023-04-08] MEDS: Carvedilol 25 MG TAB PO SCH ×2 (09:31→18:06)
[2023-04-08] MEDS: hydrALAZINE 25 MG TAB PO SCH ×3 (09:31→21:06)
[2023-04-08] MEDS: cloNIDine 0.1 MG TAB PO SCH ×3 (09:32→21:23)
[2023-04-08] MEDS: Senokot S 8.6-50 MG TAB PO SCH ×2 (09:32→21:06)
[2023-04-08] MEDS: Lisinopril 20 MG TAB PO SCH ×2 (09:32→21:06)
[2023-04-08] MEDS: Lansoprazole 15 MG/5 ML (BATCHED)UDCUP PER TUBE SCH (09:32)
[2023-04-08] MEDS: Insulin NPH Human Isophane 100 UNITS/ML (10 ML VIAL) SC SCH ×2 (09:33→21:07)
[2023-04-08] MEDS: Polyethylene Glycol 3350 17 GM Packet PO SCH (09:33)
[2023-04-08] MEDS: Acetaminophen 325 MG TAB PER TUBE PRN (18:05)
[2023-04-08] MEDS: cloNIDine 0.1 MG TAB PO PRN (21:02)
[2023-04-08] MEDS: Atorvastatin Calcium 40 MG TAB PO SCH (21:07)
[2023-04-09] MEDS: Guaifenesin DM 100-10/5 ML UDCUP PO SCH ×6 (05:12→21:40)
[2023-04-09] MEDS: Polyethylene Glycol 3350 17 GM Packet PO SCH (09:34)
[2023-04-09] MEDS: Amlodipine 10 MG TAB PO SCH (09:35)
[2023-04-09] MEDS: Carvedilol 25 MG TAB PO SCH ×2 (09:35→17:42)
[2023-04-09] MEDS: hydrALAZINE 25 MG TAB PO SCH ×3 (09:35→21:17)
[2023-04-09] MEDS: cloNIDine 0.1 MG TAB PO SCH ×3 (09:35→21:18)
[2023-04-09] MEDS: Lisinopril 20 MG TAB PO SCH ×2 (09:36→21:18)
[2023-04-09] MEDS: Insulin NPH Human Isophane 100 UNITS/ML (10 ML VIAL) SC SCH ×2 (09:36→21:17)
[2023-04-09] MEDS: Metoclopramide HCl 10 MG/2 ML VIAL IVP SCH ×2 (09:36→21:17)
[2023-04-09] MEDS: Lansoprazole 15 MG/5 ML (BATCHED)UDCUP PER TUBE SCH (09:36)
[2023-04-09] MEDS: Senokot S 8.6-50 MG TAB PO SCH ×2 (09:40→21:18)
[2023-04-09] MEDS: HumaLOG 300 UNITS/3 ML VIAL SC PRN ×2 (12:37→21:19)
[2023-04-09] MEDS: Atorvastatin Calcium 40 MG TAB PO SCH (21:19)
[2023-04-10] MEDS: Scopolamine 1.5 mg/72 hour Patch TD SCH (03:42)
[2023-04-10] MEDS: Acetaminophen 325 MG TAB PER TUBE PRN ×3 (04:15→20:27)
[2023-04-10] MEDS: Guaifenesin DM 100-10/5 ML UDCUP PO SCH ×5 (06:23→19:57)
[2023-04-10] MEDS: HumaLOG 300 UNITS/3 ML VIAL SC PRN ×3 (06:27→18:01)
[2023-04-10] MEDS: Polyethylene Glycol 3350 17 GM Packet PO SCH (07:54)
[2023-04-10] MEDS: Lansoprazole 15 MG/5 ML (BATCHED)UDCUP PER TUBE SCH (09:35)
[2023-04-10] MEDS: Lisinopril 20 MG TAB PO SCH ×2 (09:35→19:56)
[2023-04-10] MEDS: Carvedilol 25 MG TAB PO SCH ×2 (09:35→18:00)
[2023-04-10] MEDS: Amlodipine 10 MG TAB PO SCH (09:35)
[2023-04-10] MEDS: cloNIDine 0.1 MG TAB PO SCH ×3 (09:36→19:56)
[2023-04-10] MEDS: hydrALAZINE 25 MG TAB PO SCH ×3 (09:36→19:55)
[2023-04-10] MEDS: Insulin NPH Human Isophane 100 UNITS/ML (10 ML VIAL) SC SCH ×2 (09:37→19:56)
[2023-04-10] MEDS: Metoclopramide HCl 10 MG/2 ML VIAL IVP SCH ×2 (09:37→19:55)
[2023-04-10] MEDS: Senokot S 8.6-50 MG TAB PO SCH ×2 (09:37→19:56)
[2023-04-10] MEDS ORDERED: Oxybutynin 5 MG TAB PO SCH (15:45)
[2023-04-10] MEDS: Atorvastatin Calcium 40 MG TAB PO SCH (19:56)
[2023-04-10] MEDS: Lorazepam 2 MG/ML VIAL SLOW IVP PRN (19:59)
[2023-04-11] MEDS: Guaifenesin DM 100-10/5 ML UDCUP PO SCH ×5 (04:58→20:17)
[2023-04-11] MEDS ORDERED: Famotidine 20 MG TAB PO PRN (08:03)
[2023-04-11] MEDS: Amlodipine 10 MG TAB PO SCH (09:05)
[2023-04-11] MEDS: Carvedilol 25 MG TAB PO SCH ×2 (09:05→18:11)
[2023-04-11] MEDS: cloNIDine 0.1 MG TAB PO SCH ×3 (09:05→20:30)
[2023-04-11] MEDS: hydrALAZINE 25 MG TAB PO SCH ×3 (09:06→20:29)
[2023-04-11] MEDS: Insulin NPH Human Isophane 100 UNITS/ML (10 ML VIAL) SC SCH ×2 (09:06→20:33)
[2023-04-11] MEDS: Lisinopril 20 MG TAB PO SCH ×2 (09:07→20:30)
[2023-04-11] MEDS: Lansoprazole 15 MG/5 ML (BATCHED)UDCUP PER TUBE SCH (09:07)
[2023-04-11] MEDS: Metoclopramide HCl 10 MG/2 ML VIAL IVP SCH ×2 (09:08→20:31)
[2023-04-11] MEDS: Polyethylene Glycol 3350 17 GM Packet PO SCH (09:09)
[2023-04-11] MEDS: QUEtiapine 25 MG TAB PO SCH (09:09)
[2023-04-11] MEDS: Oxybutynin 5 MG TAB PO SCH (09:09)
[2023-04-11] MEDS: Senokot S 8.6-50 MG TAB PO SCH ×2 (09:10→20:34)
[2023-04-11] MEDS: Lorazepam 2 MG/ML VIAL SLOW IVP PRN ×2 (11:14→21:07)
[2023-04-11] MEDS: Atorvastatin Calcium 40 MG TAB PO SCH (20:30)
[2023-04-12] MEDS: Guaifenesin DM 100-10/5 ML UDCUP PO SCH ×5 (05:18→20:53)
[2023-04-12] MEDS: hydrALAZINE 25 MG TAB PO SCH ×3 (09:54→20:51)
[2023-04-12] MEDS: cloNIDine 0.1 MG TAB PO SCH ×3 (09:54→20:51)
[2023-04-12] MEDS: Lisinopril 20 MG TAB PO SCH ×2 (09:54→20:52)
[2023-04-12] MEDS: Carvedilol 25 MG TAB PO SCH ×2 (09:55→17:15)
[2023-04-12] MEDS: Amlodipine 10 MG TAB PO SCH (09:55)
[2023-04-12] MEDS: Oxybutynin 5 MG TAB PO SCH (09:55)
[2023-04-12] MEDS: QUEtiapine 25 MG TAB PO SCH ×2 (09:55→20:51)
[2023-04-12] MEDS: Senokot S 8.6-50 MG TAB PO SCH ×2 (09:55→20:51)
[2023-04-12] MEDS: Metoclopramide HCl 10 MG/2 ML VIAL IVP SCH ×2 (09:56→20:51)
[2023-04-12] MEDS: Lansoprazole 15 MG/5 ML (BATCHED)UDCUP PER TUBE SCH (09:56)
[2023-04-12] MEDS: Insulin NPH Human Isophane 100 UNITS/ML (10 ML VIAL) SC SCH ×2 (09:58→20:52)
[2023-04-12] MEDS: Polyethylene Glycol 3350 17 GM Packet PO SCH (09:59)
[2023-04-12] MEDS: HumaLOG 300 UNITS/3 ML VIAL SC PRN ×2 (11:56→17:15)
[2023-04-12] MEDS: Lorazepam 2 MG/ML VIAL SLOW IVP PRN (11:57)
[2023-04-12] MEDS: Atorvastatin Calcium 40 MG TAB PO SCH (20:52)
[2023-04-13] MEDS: Scopolamine 1.5 mg/72 hour Patch TD SCH (04:15)
[2023-04-13] MEDS: Guaifenesin DM 100-10/5 ML UDCUP PO SCH ×5 (04:28→22:06)
[2023-04-13] MEDS: Polyethylene Glycol 3350 17 GM Packet PO SCH (07:20)
[2023-04-13] MEDS: Oxybutynin 5 MG TAB PO SCH (09:35)
[2023-04-13] MEDS: Carvedilol 25 MG TAB PO SCH ×2 (09:35→16:17)
[2023-04-13] MEDS: Lisinopril 20 MG TAB PO SCH ×2 (09:35→22:04)
[2023-04-13] MEDS: hydrALAZINE 25 MG TAB PO SCH ×3 (09:36→22:05)
[2023-04-13] MEDS: Insulin NPH Human Isophane 100 UNITS/ML (10 ML VIAL) SC SCH ×2 (09:36→22:07)
[2023-04-13] MEDS: QUEtiapine 25 MG TAB PO SCH ×2 (09:36→22:05)
[2023-04-13] MEDS: Metoclopramide HCl 10 MG/2 ML VIAL IVP SCH ×2 (09:37→22:05)
[2023-04-13] MEDS: Senokot S 8.6-50 MG TAB PO SCH ×2 (09:37→22:06)
[2023-04-13] MEDS: Lansoprazole 15 MG/5 ML (BATCHED)UDCUP PER TUBE SCH (09:37)
[2023-04-13] MEDS: Amlodipine 10 MG TAB PO SCH (09:37)
[2023-04-13] MEDS: cloNIDine 0.1 MG TAB PO SCH ×3 (09:37→22:06)
[2023-04-13] MEDS: HumaLOG 300 UNITS/3 ML VIAL SC PRN (16:18)
[2023-04-13] MEDS: Atorvastatin Calcium 40 MG TAB PO SCH (22:05)
[2023-04-13] MEDS: Acetaminophen 325 MG TAB PER TUBE PRN (22:06)
[2023-04-14] MEDS: Guaifenesin DM 100-10/5 ML UDCUP PO SCH ×6 (04:25→21:06)
[2023-04-14] MEDS: HumaLOG 300 UNITS/3 ML VIAL SC PRN (05:15)
[2023-04-14] MEDS: Polyethylene Glycol 3350 17 GM Packet PO SCH (07:46)
[2023-04-14] MEDS: Lansoprazole 15 MG/5 ML (BATCHED)UDCUP PER TUBE SCH (08:23)
[2023-04-14] MEDS: Lisinopril 20 MG TAB PO SCH ×2 (08:23→21:04)
[2023-04-14] MEDS: Oxybutynin 5 MG TAB PO SCH (08:23)
[2023-04-14] MEDS: Amlodipine 10 MG TAB PO SCH (08:24)
[2023-04-14] MEDS: Carvedilol 25 MG TAB PO SCH ×2 (08:24→16:47)
[2023-04-14] MEDS: cloNIDine 0.1 MG TAB PO SCH ×3 (08:24→21:04)
[2023-04-14] MEDS: Senokot S 8.6-50 MG TAB PO SCH ×2 (08:24→21:04)
[2023-04-14] MEDS: QUEtiapine 25 MG TAB PO SCH ×2 (08:24→21:03)
[2023-04-14] MEDS: Metoclopramide HCl 10 MG/2 ML VIAL IVP SCH ×2 (08:25→21:05)
[2023-04-14] MEDS: Insulin NPH Human Isophane 100 UNITS/ML (10 ML VIAL) SC SCH ×2 (08:25→21:04)
[2023-04-14] MEDS: hydrALAZINE 25 MG TAB PO SCH ×3 (08:25→21:04)
[2023-04-14] MEDS: Atorvastatin Calcium 40 MG TAB PO SCH (21:03)
[2023-04-15] MEDS: Guaifenesin DM 100-10/5 ML UDCUP PO SCH ×5 (05:17→22:11)
[2023-04-15] MEDS: HumaLOG 300 UNITS/3 ML VIAL SC PRN ×2 (05:42→17:45)
[2023-04-15] MEDS: QUEtiapine 25 MG TAB PO SCH ×2 (08:34→22:12)
[2023-04-15] MEDS: Senokot S 8.6-50 MG TAB PO SCH ×2 (08:34→22:12)
[2023-04-15] MEDS: Lansoprazole 15 MG/5 ML (BATCHED)UDCUP PER TUBE SCH (08:34)
[2023-04-15] MEDS: Carvedilol 25 MG TAB PO SCH ×2 (08:34→17:42)
[2023-04-15] MEDS: Oxybutynin 5 MG TAB PO SCH (08:34)
[2023-04-15] MEDS: Metoclopramide HCl 10 MG/2 ML VIAL IVP SCH ×2 (08:35→22:11)
[2023-04-15] MEDS: Amlodipine 10 MG TAB PO SCH (08:35)
[2023-04-15] MEDS: hydrALAZINE 25 MG TAB PO SCH ×3 (08:36→22:11)
[2023-04-15] MEDS: cloNIDine 0.1 MG TAB PO SCH ×3 (08:36→22:12)
[2023-04-15] MEDS: Lisinopril 20 MG TAB PO SCH ×2 (08:37→22:13)
[2023-04-15] MEDS: Insulin NPH Human Isophane 100 UNITS/ML (10 ML VIAL) SC SCH ×2 (08:37→23:21)
[2023-04-15] MEDS: Polyethylene Glycol 3350 17 GM Packet PO SCH (08:38)
[2023-04-15] MEDS: Atorvastatin Calcium 40 MG TAB PO SCH (22:11)
[2023-04-16] MEDS: Lorazepam 2 MG/ML VIAL SLOW IVP PRN ×2 (03:55→20:24)
[2023-04-16] MEDS: Scopolamine 1.5 mg/72 hour Patch TD SCH (03:56)
[2023-04-16] MEDS: Guaifenesin DM 100-10/5 ML UDCUP PO SCH ×5 (07:30→22:32)
[2023-04-16] MEDS: Lisinopril 20 MG TAB PO SCH ×2 (09:28→20:24)
[2023-04-16] MEDS: hydrALAZINE 25 MG TAB PO SCH ×3 (09:28→20:25)
[2023-04-16] MEDS: Amlodipine 10 MG TAB PO SCH (09:29)
[2023-04-16] MEDS: Carvedilol 25 MG TAB PO SCH ×2 (09:29→16:47)
[2023-04-16] MEDS: Oxybutynin 5 MG TAB PO SCH (09:29)
[2023-04-16] MEDS: Senokot S 8.6-50 MG TAB PO SCH ×2 (09:29→20:27)
[2023-04-16] MEDS: cloNIDine 0.1 MG TAB PO SCH ×3 (09:29→20:26)
[2023-04-16] MEDS: Insulin NPH Human Isophane 100 UNITS/ML (10 ML VIAL) SC SCH ×2 (09:30→22:32)
[2023-04-16] MEDS: Metoclopramide HCl 10 MG/2 ML VIAL IVP SCH ×2 (09:30→20:26)
[2023-04-16] MEDS: QUEtiapine 25 MG TAB PO SCH ×2 (09:31→20:25)
[2023-04-16] MEDS: Polyethylene Glycol 3350 17 GM Packet PO SCH (09:31)
[2023-04-16] MEDS: Lansoprazole 15 MG/5 ML (BATCHED)UDCUP PER TUBE SCH (13:04)
[2023-04-16] MEDS: Atorvastatin Calcium 40 MG TAB PO SCH (20:25)
[2023-04-16] MEDS: HumaLOG 300 UNITS/3 ML VIAL SC PRN (22:31)
[2023-04-17] MEDS: Lorazepam 2 MG/ML VIAL SLOW IVP PRN ×2 (01:01→05:05)
[2023-04-17] MEDS: Guaifenesin DM 100-10/5 ML UDCUP PO SCH (05:05)
[2023-04-17] MEDS: Senokot S 8.6-50 MG TAB PO SCH ×2 (09:54→21:49)
[2023-04-17] MEDS: Polyethylene Glycol 3350 17 GM Packet PO SCH (09:54)
[2023-04-17] MEDS: Amlodipine 10 MG TAB PO SCH (09:57)
[2023-04-17] MEDS: Oxybutynin 5 MG TAB PO SCH (09:58)
[2023-04-17] MEDS: hydrALAZINE 25 MG TAB PO SCH ×3 (09:58→21:48)
[2023-04-17] MEDS: cloNIDine 0.1 MG TAB PO SCH ×3 (09:59→21:49)
[2023-04-17] MEDS: QUEtiapine 25 MG TAB PO SCH ×2 (09:59→21:49)
[2023-04-17] MEDS: Lisinopril 20 MG TAB PO SCH ×2 (09:59→21:49)
[2023-04-17] MEDS: Insulin NPH Human Isophane 100 UNITS/ML (10 ML VIAL) SC SCH ×2 (10:00→21:50)
[2023-04-17] MEDS: Carvedilol 25 MG TAB PO SCH ×2 (10:00→17:59)
[2023-04-17 10:56] LABS: Bacteria/HPF 2+ HPF (None Seen); Bilirubin Negative (Negative); Blood, Urine 3+ (Negative); CAUTI Indications for Culture Acute Hematuria; Calcium Oxalate Crystals 1+ HPF (None Seen); Glucose, Urine (Dipstick) Normal (Negative); Ketone, Urine Negative (Negative); Leukocyte 500 Leu/uL (Negative); Nitrite Negative (Negative); Protein, Urine (Dipstick) 100 mg/dL (Neg-Trace); RBC/HPF Greater than 50 HPF (0-3); Specific Gravity, Urine 1.019 (1.002-1.036); Squamous Epithelial None Seen HPF (0-3); Urobilinogen Normal mg/dL (Less than 2); WBC/HPF 21-50 HPF (0-3); pH, Urine 6.5 (5.0-9.0)
[2023-04-17 10:57] LABS: Clarity Turbid (Clear)
[2023-04-17 10:59] LABS: Urine Culture Reflex Yes Yes
[2023-04-17] MEDS: HumaLOG 300 UNITS/3 ML VIAL SC PRN ×2 (12:45→21:51)
[2023-04-17] MEDS: Atorvastatin Calcium 40 MG TAB PO SCH (21:49)
[2023-04-18] MEDS: HumaLOG 300 UNITS/3 ML VIAL SC PRN ×3 (06:14→16:57)
[2023-04-18] MEDS: Polyethylene Glycol 3350 17 GM Packet PO SCH (07:27)
[2023-04-18] MEDS: Senokot S 8.6-50 MG TAB PO SCH ×2 (07:28→21:52)
[2023-04-18] MEDS: Amlodipine 10 MG TAB PO SCH (08:03)
[2023-04-18] MEDS: cloNIDine 0.1 MG TAB PO SCH ×3 (08:04→21:52)
[2023-04-18] MEDS: Oxybutynin 5 MG TAB PO SCH (08:04)
[2023-04-18] MEDS: Lisinopril 20 MG TAB PO SCH ×2 (08:05→21:53)
[2023-04-18] MEDS: hydrALAZINE 25 MG TAB PO SCH ×3 (08:05→21:52)
[2023-04-18] MEDS: Carvedilol 25 MG TAB PO SCH ×2 (08:05→16:56)
[2023-04-18] MEDS: QUEtiapine 25 MG TAB PO SCH ×2 (08:05→21:52)
[2023-04-18] MEDS: Insulin NPH Human Isophane 100 UNITS/ML (10 ML VIAL) SC SCH ×2 (08:05→21:54)
[2023-04-18] MEDS: Atorvastatin Calcium 40 MG TAB PO SCH (21:52)
[2023-04-19] MEDS: Scopolamine 1.5 mg/72 hour Patch TD SCH (06:08)
[2023-04-19] MEDS: cloNIDine 0.1 MG TAB PO SCH ×3 (09:47→21:03)
[2023-04-19] MEDS: Oxybutynin 5 MG TAB PO SCH (09:47)
[2023-04-19] MEDS: Lisinopril 20 MG TAB PO SCH ×2 (09:49→21:03)
[2023-04-19] MEDS: hydrALAZINE 25 MG TAB PO SCH ×3 (09:49→21:02)
[2023-04-19] MEDS: Amlodipine 10 MG TAB PO SCH (09:52)
[2023-04-19] MEDS: Senokot S 8.6-50 MG TAB PO SCH ×2 (09:52→21:03)
[2023-04-19] MEDS: Polyethylene Glycol 3350 17 GM Packet PO SCH (09:53)
[2023-04-19] MEDS: Carvedilol 25 MG TAB PO SCH ×2 (09:53→19:12)
[2023-04-19] MEDS: Insulin NPH Human Isophane 100 UNITS/ML (10 ML VIAL) SC SCH ×2 (09:53→21:01)
[2023-04-19] MEDS: QUEtiapine 25 MG TAB PO SCH ×2 (09:53→21:03)
[2023-04-19] MEDS: HumaLOG 300 UNITS/3 ML VIAL SC PRN (21:01)
[2023-04-19] MEDS: Atorvastatin Calcium 40 MG TAB PO SCH (21:03)
[2023-04-20] MEDS: Lorazepam 2 MG/ML VIAL SLOW IVP PRN (02:36)
[2023-04-20] MEDS: QUEtiapine 25 MG TAB PO SCH ×2 (10:00→21:44)
[2023-04-20] MEDS: Oxybutynin 5 MG TAB PO SCH (10:00)
[2023-04-20] MEDS: Carvedilol 25 MG TAB PO SCH ×2 (10:00→16:24)
[2023-04-20] MEDS: hydrALAZINE 25 MG TAB PO SCH ×3 (10:00→21:44)
[2023-04-20] MEDS: cloNIDine 0.1 MG TAB PO SCH ×3 (10:01→21:44)
[2023-04-20] MEDS: Polyethylene Glycol 3350 17 GM Packet PO SCH (10:01)
[2023-04-20] MEDS: Nitrofurantoin Monohyd/M-Cryst 100 MG CAP PO SCH ×2 (10:01→21:46)
[2023-04-20] MEDS: Amlodipine 10 MG TAB PO SCH (10:01)
[2023-04-20] MEDS: Lisinopril 20 MG TAB PO SCH ×2 (10:01→21:45)
[2023-04-20] MEDS: Insulin NPH Human Isophane 100 UNITS/ML (10 ML VIAL) SC SCH ×2 (10:01→21:46)
[2023-04-20] MEDS: Senokot S 8.6-50 MG TAB PO SCH ×2 (10:06→22:55)
[2023-04-20] MEDS: Atorvastatin Calcium 40 MG TAB PO SCH (21:45)
[2023-04-21 06:36] LABS: Hemoglobin 10.1 g/dL (12.0-16.0); Mean Corpuscular HGB CONC 32.6 g/dL (32.0-36.0); Mean Corpuscular Hemoglobin 28.5 pg (27.0-31.0); Mean Corpuscular Volume 87.6 fl (78.0-98.0); Mean Platelet Volume 9.1 fL (7.4-10.4); Platelet Count 254 10x3/uL (130-400); RBC Distribution Width 16.1 % (11.5-14.5); Red Blood Cell (RBC) Count 3.54 mill/uL (4.20-5.40); White Blood Cell (WBC) Count 4.9 10x3/uL (4.8-10.8)
[2023-04-21] MEDS: HumaLOG 300 UNITS/3 ML VIAL SC PRN (06:48)
[2023-04-21 07:02] LABS: Anion Gap 15 mmol/L (10-20); BUN (Urea Nitrogen) 18 mg/dL (9.8-20.1); Calc. Creatinine Clearance 92 mL/min (70-130); Carbon Dioxide 26 mmol/L (22-29); Chloride 102 mmol/L (98-107); Estimated GFR 89; Glucose 218 mg/dL (70-105); Sodium 139 mmol/L (136-145)
[2023-04-21] MEDS: Insulin NPH Human Isophane 100 UNITS/ML (10 ML VIAL) SC SCH ×2 (09:30→19:45)
[2023-04-21] MEDS: Nitrofurantoin Monohyd/M-Cryst 100 MG CAP PO SCH ×2 (09:32→19:48)
[2023-04-21] MEDS: hydrALAZINE 25 MG TAB PO SCH ×3 (09:32→19:48)
[2023-04-21] MEDS: cloNIDine 0.1 MG TAB PO SCH ×3 (09:33→19:50)
[2023-04-21] MEDS: Oxybutynin 5 MG TAB PO SCH (09:33)
[2023-04-21] MEDS: Amlodipine 10 MG TAB PO SCH (09:33)
[2023-04-21] MEDS: Lisinopril 20 MG TAB PO SCH ×2 (09:33→19:49)
[2023-04-21] MEDS: Senokot S 8.6-50 MG TAB PO SCH ×2 (09:33→19:52)
[2023-04-21] MEDS: Carvedilol 25 MG TAB PO SCH ×2 (09:33→18:18)
[2023-04-21] MEDS: QUEtiapine 25 MG TAB PO SCH ×2 (09:33→19:48)
[2023-04-21] MEDS: Polyethylene Glycol 3350 17 GM Packet PO SCH (09:34)
[2023-04-21] MEDS: Atorvastatin Calcium 40 MG TAB PO SCH (19:50)
[2023-04-22] MEDS: Scopolamine 1.5 mg/72 hour Patch TD SCH (03:56)
[2023-04-22] MEDS: Oxybutynin 5 MG TAB PO SCH (10:47)
[2023-04-22] MEDS: Senokot S 8.6-50 MG TAB PO SCH ×2 (10:49→20:02)
[2023-04-22] MEDS: Amlodipine 10 MG TAB PO SCH (10:50)
[2023-04-22] MEDS: Lisinopril 20 MG TAB PO SCH ×2 (10:51→20:02)
[2023-04-22] MEDS: hydrALAZINE 25 MG TAB PO SCH ×3 (10:51→20:02)
[2023-04-22] MEDS: cloNIDine 0.1 MG TAB PO SCH ×3 (10:51→20:03)
[2023-04-22] MEDS: Carvedilol 25 MG TAB PO SCH ×2 (10:51→18:10)
[2023-04-22] MEDS: QUEtiapine 25 MG TAB PO SCH ×2 (10:51→20:02)
[2023-04-22] MEDS: Nitrofurantoin Monohyd/M-Cryst 100 MG CAP PO SCH ×2 (10:57→20:02)
[2023-04-22] MEDS: Insulin NPH Human Isophane 100 UNITS/ML (10 ML VIAL) SC SCH ×2 (10:58→20:03)
[2023-04-22] MEDS: Polyethylene Glycol 3350 17 GM Packet PO SCH (11:05)
[2023-04-22] MEDS: HumaLOG 300 UNITS/3 ML VIAL SC PRN ×3 (12:04→20:23)
[2023-04-22] MEDS: Atorvastatin Calcium 40 MG TAB PO SCH (20:03)
[2023-04-23] MEDS: HumaLOG 300 UNITS/3 ML VIAL SC PRN ×4 (07:37→21:21)
[2023-04-23] MEDS: Insulin NPH Human Isophane 100 UNITS/ML (10 ML VIAL) SC SCH ×2 (09:15→21:21)
[2023-04-23] MEDS: Polyethylene Glycol 3350 17 GM Packet PO SCH (09:17)
[2023-04-23] MEDS: Oxybutynin 5 MG TAB PO SCH (09:18)
[2023-04-23] MEDS: Carvedilol 25 MG TAB PO SCH ×2 (09:18→15:44)
[2023-04-23] MEDS: Nitrofurantoin Monohyd/M-Cryst 100 MG CAP PO SCH ×2 (09:18→21:20)
[2023-04-23] MEDS: QUEtiapine 25 MG TAB PO SCH ×2 (09:18→21:20)
[2023-04-23] MEDS: hydrALAZINE 25 MG TAB PO SCH ×3 (09:18→21:19)
[2023-04-23] MEDS: Amlodipine 10 MG TAB PO SCH (09:18)
[2023-04-23] MEDS: Senokot S 8.6-50 MG TAB PO SCH ×2 (09:18→21:20)
[2023-04-23] MEDS: Lisinopril 20 MG TAB PO SCH ×2 (09:19→21:19)
[2023-04-23] MEDS: cloNIDine 0.1 MG TAB PO SCH ×3 (09:19→21:20)
[2023-04-23] MEDS ORDERED: Lorazepam 0.5 MG TAB PO PRN (15:17)
[2023-04-23] MEDS ORDERED: Lorazepam 1 MG TAB PO PRN (15:17)
[2023-04-23] MEDS: Atorvastatin Calcium 40 MG TAB PO SCH (21:20)
[2023-04-23] MEDS: Melatonin 3 MG TAB PO PRN (21:20)
[2023-04-24] MEDS ORDERED: traZODone HCl 50 MG TAB PO SCH (00:45)
[2023-04-24] MEDS: cloNIDine 0.1 MG TAB PO SCH ×3 (08:16→20:18)
[2023-04-24] MEDS: QUEtiapine 25 MG TAB PO SCH ×2 (08:18→20:18)
[2023-04-24] MEDS: Lisinopril 20 MG TAB PO SCH ×2 (08:18→20:18)
[2023-04-24] MEDS: hydrALAZINE 25 MG TAB PO SCH ×3 (08:18→20:17)
[2023-04-24] MEDS: Carvedilol 25 MG TAB PO SCH ×2 (08:18→16:20)
[2023-04-24] MEDS: Senokot S 8.6-50 MG TAB PO SCH ×2 (08:19→20:31)
[2023-04-24] MEDS: Amlodipine 10 MG TAB PO SCH (08:19)
[2023-04-24] MEDS: Polyethylene Glycol 3350 17 GM Packet PO SCH (08:19)
[2023-04-24] MEDS: Nitrofurantoin Monohyd/M-Cryst 100 MG CAP PO SCH ×2 (08:19→20:17)
[2023-04-24] MEDS: Oxybutynin 5 MG TAB PO SCH (08:19)
[2023-04-24] MEDS: Insulin NPH Human Isophane 100 UNITS/ML (10 ML VIAL) SC SCH ×2 (08:20→20:16)
[2023-04-24] MEDS: HumaLOG 300 UNITS/3 ML VIAL SC PRN (16:20)
[2023-04-24] MEDS: Melatonin 3 MG TAB PO PRN (20:18)
[2023-04-24] MEDS: Atorvastatin Calcium 40 MG TAB PO SCH (20:18)
[2023-04-25] MEDS: Scopolamine 1.5 mg/72 hour Patch TD SCH (04:39)
[2023-04-25] MEDS: Lisinopril 20 MG TAB PO SCH ×2 (09:17→21:04)
[2023-04-25] MEDS: Amlodipine 10 MG TAB PO SCH (09:17)
[2023-04-25] MEDS: Carvedilol 25 MG TAB PO SCH ×2 (09:17→17:44)
[2023-04-25] MEDS: hydrALAZINE 25 MG TAB PO SCH ×3 (09:18→21:05)
[2023-04-25] MEDS: Oxybutynin 5 MG TAB PO SCH (09:18)
[2023-04-25] MEDS: cloNIDine 0.1 MG TAB PO SCH ×3 (09:18→21:04)
[2023-04-25] MEDS: QUEtiapine 25 MG TAB PO SCH ×2 (09:18→21:05)
[2023-04-25] MEDS: Senokot S 8.6-50 MG TAB PO SCH ×2 (09:18→21:05)
[2023-04-25] MEDS: Insulin NPH Human Isophane 100 UNITS/ML (10 ML VIAL) SC SCH ×2 (09:19→21:09)
[2023-04-25] MEDS: Polyethylene Glycol 3350 17 GM Packet PO SCH (09:20)
[2023-04-25] MEDS: HumaLOG 300 UNITS/3 ML VIAL SC PRN ×2 (12:34→17:44)
[2023-04-25] MEDS: Atorvastatin Calcium 40 MG TAB PO SCH (21:04)
[2023-04-25] MEDS: Melatonin 3 MG TAB PO PRN (21:05)
[2023-04-26] MEDS: Polyethylene Glycol 3350 17 GM Packet PO SCH (08:49)
[2023-04-26] MEDS: Insulin NPH Human Isophane 100 UNITS/ML (10 ML VIAL) SC SCH ×2 (08:56→20:46)
[2023-04-26] MEDS: hydrALAZINE 25 MG TAB PO SCH ×3 (08:57→20:47)
[2023-04-26] MEDS: Lisinopril 20 MG TAB PO SCH ×2 (08:57→20:46)
[2023-04-26] MEDS: Carvedilol 25 MG TAB PO SCH ×2 (08:58→16:31)
[2023-04-26] MEDS: Amlodipine 10 MG TAB PO SCH (08:58)
[2023-04-26] MEDS: Oxybutynin 5 MG TAB PO SCH (08:58)
[2023-04-26] MEDS: QUEtiapine 25 MG TAB PO SCH ×2 (08:59→20:47)
[2023-04-26] MEDS: cloNIDine 0.1 MG TAB PO SCH ×3 (08:59→20:47)
[2023-04-26] MEDS: Senokot S 8.6-50 MG TAB PO SCH ×2 (08:59→20:47)
[2023-04-26] MEDS: HumaLOG 300 UNITS/3 ML VIAL SC PRN ×2 (13:14→16:33)
[2023-04-26] MEDS: metFORMIN 500 MG TAB PO SCH (16:31)
[2023-04-26] MEDS: Atorvastatin Calcium 40 MG TAB PO SCH (20:47)
[2023-04-26] MEDS: Melatonin 3 MG TAB PO PRN (20:47)
[2023-04-27] MEDS: cloNIDine 0.1 MG TAB PO SCH ×3 (09:13→20:14)
[2023-04-27] MEDS: hydrALAZINE 25 MG TAB PO SCH ×3 (09:13→20:12)
[2023-04-27] MEDS: Lisinopril 20 MG TAB PO SCH ×2 (09:13→20:13)
[2023-04-27] MEDS: Oxybutynin 5 MG TAB PO SCH (09:14)
[2023-04-27] MEDS: metFORMIN 500 MG TAB PO SCH ×2 (09:14→16:03)
[2023-04-27] MEDS: Carvedilol 25 MG TAB PO SCH ×2 (09:14→18:12)
[2023-04-27] MEDS: Senokot S 8.6-50 MG TAB PO SCH ×2 (09:14→20:13)
[2023-04-27] MEDS: Polyethylene Glycol 3350 17 GM Packet PO SCH (09:15)
[2023-04-27] MEDS: Insulin NPH Human Isophane 100 UNITS/ML (10 ML VIAL) SC SCH ×2 (09:15→20:12)
[2023-04-27] MEDS: QUEtiapine 25 MG TAB PO SCH ×2 (09:15→20:14)
[2023-04-27] MEDS: NIFEdipine XL 30 MG TAB PO SCH ×2 (11:35→20:13)
[2023-04-27] MEDS: Acetaminophen 325 MG TAB PER TUBE PRN (11:36)
[2023-04-27] MEDS: Mineral Oil ENEMA PR SCH (18:12)
[2023-04-27] MEDS: Atorvastatin Calcium 40 MG TAB PO SCH (20:14)
[2023-04-27] MEDS: Melatonin 3 MG TAB PO PRN (20:14)
[2023-04-28] MEDS ORDERED: Bisacodyl 10 MG SUPP PR PRN (00:01)
[2023-04-28] MEDS: Scopolamine 1.5 mg/72 hour Patch TD SCH (05:30)
[2023-04-28] MEDS: Mineral Oil ENEMA PR SCH (07:51)
[2023-04-28] MEDS: metFORMIN 500 MG TAB PO SCH ×2 (08:39→16:15)
[2023-04-28] MEDS: cloNIDine 0.1 MG TAB PO SCH ×3 (08:39→22:00)
[2023-04-28] MEDS: hydrALAZINE 25 MG TAB PO SCH ×3 (08:39→21:56)
[2023-04-28] MEDS: Senokot S 8.6-50 MG TAB PO SCH ×2 (08:40→21:56)
[2023-04-28] MEDS: Carvedilol 25 MG TAB PO SCH ×2 (08:40→16:15)
[2023-04-28] MEDS: Lisinopril 20 MG TAB PO SCH ×2 (08:40→21:56)
[2023-04-28] MEDS: NIFEdipine XL 30 MG TAB PO SCH ×2 (08:40→22:04)
[2023-04-28] MEDS: Oxybutynin 5 MG TAB PO SCH (08:40)
[2023-04-28] MEDS: QUEtiapine 25 MG TAB PO SCH ×2 (08:40→21:51)
[2023-04-28] MEDS: Polyethylene Glycol 3350 17 GM Packet PO SCH (08:41)
[2023-04-28] MEDS: Insulin NPH Human Isophane 100 UNITS/ML (10 ML VIAL) SC SCH ×2 (08:41→21:55)
[2023-04-28] MEDS ORDERED: Zolpidem Tartrate 5 MG TAB PO PRN (15:17)
[2023-04-28] MEDS: Melatonin 3 MG TAB PO PRN (21:51)
[2023-04-28] MEDS: Atorvastatin Calcium 40 MG TAB PO SCH (21:56)
[2023-04-29] MEDS: Polyethylene Glycol 3350 17 GM Packet PO SCH (08:06)
[2023-04-29] MEDS: hydrALAZINE 25 MG TAB PO SCH ×3 (08:06→21:52)
[2023-04-29] MEDS: QUEtiapine 25 MG TAB PO SCH ×2 (08:06→22:03)
[2023-04-29] MEDS: Oxybutynin 5 MG TAB PO SCH (08:06)
[2023-04-29] MEDS: cloNIDine 0.1 MG TAB PO SCH ×3 (08:07→22:04)
[2023-04-29] MEDS: NIFEdipine XL 30 MG TAB PO SCH ×2 (08:07→22:03)
[2023-04-29] MEDS: Carvedilol 25 MG TAB PO SCH ×2 (08:07→16:52)
[2023-04-29] MEDS: Lisinopril 20 MG TAB PO SCH ×2 (08:07→22:04)
[2023-04-29] MEDS: metFORMIN 500 MG TAB PO SCH ×2 (08:09→16:52)
[2023-04-29] MEDS: Senokot S 8.6-50 MG TAB PO SCH ×2 (08:09→22:04)
[2023-04-29] MEDS: Insulin NPH Human Isophane 100 UNITS/ML (10 ML VIAL) SC SCH ×2 (08:10→22:04)
[2023-04-29] MEDS: Melatonin 3 MG TAB PO PRN (22:02)
[2023-04-29] MEDS: Acetaminophen 325 MG TAB PER TUBE PRN (22:03)
[2023-04-29] MEDS: Atorvastatin Calcium 40 MG TAB PO SCH (22:04)
[2023-04-30 07:26] LABS: #Eosinphils 0.2 thou/uL (0.0-0.7); #Monocytes 0.6 thou/uL (0.11-0.59); #Neutrophils 3.1 thou/uL (1.40-6.50); %Basophils 0.3 % (0.0-1.0); %Eosinophils 2.6 % (0.0-10.0); %Lymphocytes 33.5 % (21.0-51.0); %Monocytes 10.4 % (0.0-10.0); %Neutrophils 53.2 % (42.0-75.0); Hematocrit 32.2 % (36.0-47.0); Hemoglobin 10.4 g/dL (12.0-16.0); Mean Corpuscular HGB CONC 32.3 g/dL (32.0-36.0); Mean Corpuscular Hemoglobin 28.7 pg (27.0-31.0); Mean Corpuscular Volume 88.7 fl (78.0-98.0); Platelet Count 251 10x3/uL (130-400); RBC Distribution Width 16.8 % (11.5-14.5); Red Blood Cell (RBC) Count 3.63 mill/uL (4.20-5.40); White Blood Cell (WBC) Count 5.9 10x3/uL (4.8-10.8)
[2023-04-30 08:01] LABS: Anion Gap 17 mmol/L (10-20); BUN (Urea Nitrogen) 22 mg/dL (9.8-20.1); Calc. Creatinine Clearance 107 mL/min (70-130); Calcium 10.1 mg/dL (7.8-10.44); Carbon Dioxide 24 mmol/L (22-29); Chloride 103 mmol/L (98-107); Estimated GFR 103; Glucose 80 mg/dL (70-105); Potassium 3.8 mmol/L (3.5-5.1); Sodium 140 mmol/L (136-145)
[2023-04-30] MEDS: Polyethylene Glycol 3350 17 GM Packet PO SCH (08:50)
[2023-04-30] MEDS: Lisinopril 20 MG TAB PO SCH ×2 (08:53→22:25)
[2023-04-30] MEDS: QUEtiapine 25 MG TAB PO SCH ×2 (08:53→22:26)
[2023-04-30] MEDS: metFORMIN 500 MG TAB PO SCH ×2 (08:53→16:24)
[2023-04-30] MEDS: Oxybutynin 5 MG TAB PO SCH (08:53)
[2023-04-30] MEDS: Carvedilol 25 MG TAB PO SCH ×2 (08:54→16:24)
[2023-04-30] MEDS: cloNIDine 0.1 MG TAB PO SCH ×3 (08:54→22:26)
[2023-04-30] MEDS: hydrALAZINE 25 MG TAB PO SCH ×3 (08:54→22:25)
[2023-04-30] MEDS: Senokot S 8.6-50 MG TAB PO SCH ×2 (08:55→22:27)
[2023-04-30] MEDS: NIFEdipine XL 30 MG TAB PO SCH ×2 (08:55→22:27)
[2023-04-30] MEDS: Insulin NPH Human Isophane 100 UNITS/ML (10 ML VIAL) SC SCH ×2 (08:59→22:41)
[2023-04-30] MEDS: Acetaminophen 325 MG TAB PER TUBE PRN ×2 (10:45→22:24)
[2023-04-30] MEDS ORDERED: Citalopram 20 MG TAB PO SCH (11:30)
[2023-04-30] MEDS: Zolpidem Tartrate 5 MG TAB PO PRN (22:26)
[2023-04-30] MEDS: Atorvastatin Calcium 40 MG TAB PO SCH (22:27)
[2023-05-01] MEDS ORDERED: diphenhydrAMINE 50 MG/ML VIAL IVP SCH (00:15)
[2023-05-01] MEDS: HYDROcodone/Acetaminophen 5/325 mg Tablet PO PRN ×3 (04:20→18:00)
[2023-05-01] MEDS: Scopolamine 1.5 mg/72 hour Patch TD SCH (04:21)
[2023-05-01] MEDS: NIFEdipine XL 30 MG TAB PO SCH ×2 (09:55→21:32)
[2023-05-01] MEDS: hydrALAZINE 25 MG TAB PO SCH ×3 (09:55→21:31)
[2023-05-01] MEDS: Carvedilol 25 MG TAB PO SCH ×2 (09:55→16:17)
[2023-05-01] MEDS: Oxybutynin 5 MG TAB PO SCH (09:56)
[2023-05-01] MEDS: cloNIDine 0.1 MG TAB PO SCH ×3 (09:57→21:30)
[2023-05-01] MEDS: Citalopram 20 MG TAB PO SCH (09:57)
[2023-05-01] MEDS: metFORMIN 500 MG TAB PO SCH ×2 (09:57→16:17)
[2023-05-01] MEDS: Senokot S 8.6-50 MG TAB PO SCH ×2 (09:57→21:33)
[2023-05-01] MEDS: QUEtiapine 25 MG TAB PO SCH ×2 (09:59→21:32)
[2023-05-01] MEDS: Insulin NPH Human Isophane 100 UNITS/ML (10 ML VIAL) SC SCH ×2 (09:59→21:32)
[2023-05-01] MEDS: Polyethylene Glycol 3350 17 GM Packet PO SCH (09:59)
[2023-05-01] MEDS: Lisinopril 20 MG TAB PO SCH ×3 (10:00→21:32)
[2023-05-01] MEDS: Atorvastatin Calcium 40 MG TAB PO SCH (21:30)
[2023-05-01] MEDS: Melatonin 3 MG TAB PO PRN (21:30)
[2023-05-01] MEDS: Acetaminophen 325 MG TAB PER TUBE PRN (21:37)
[2023-05-02] MEDS: HYDROcodone/Acetaminophen 5/325 mg Tablet PO PRN ×3 (01:23→21:47)
[2023-05-02] MEDS: Zolpidem Tartrate 5 MG TAB PO PRN (01:25)
[2023-05-02] MEDS: Polyethylene Glycol 3350 17 GM Packet PO SCH (09:12)
[2023-05-02] MEDS: hydrALAZINE 25 MG TAB PO SCH ×3 (09:12→21:44)
[2023-05-02] MEDS: NIFEdipine XL 30 MG TAB PO SCH ×2 (09:12→21:43)
[2023-05-02] MEDS: Carvedilol 25 MG TAB PO SCH ×2 (09:13→17:47)
[2023-05-02] MEDS: Oxybutynin 5 MG TAB PO SCH (09:13)
[2023-05-02] MEDS: Lisinopril 20 MG TAB PO SCH ×2 (09:13→21:44)
[2023-05-02] MEDS: metFORMIN 500 MG TAB PO SCH ×2 (09:13→17:47)
[2023-05-02] MEDS: Senokot S 8.6-50 MG TAB PO SCH ×2 (09:13→21:44)
[2023-05-02] MEDS: Citalopram 20 MG TAB PO SCH (09:14)
[2023-05-02] MEDS: QUEtiapine 25 MG TAB PO SCH ×2 (09:14→21:44)
[2023-05-02] MEDS: Insulin NPH Human Isophane 100 UNITS/ML (10 ML VIAL) SC SCH ×2 (09:14→21:25)
[2023-05-02] MEDS: cloNIDine 0.1 MG TAB PO SCH ×3 (09:14→21:44)
[2023-05-02] MEDS: Atorvastatin Calcium 40 MG TAB PO SCH (21:44)
[2023-05-02] MEDS: Melatonin 3 MG TAB PO PRN (21:44)
[2023-05-03] MEDS: Zolpidem Tartrate 5 MG TAB PO PRN (00:08)
[2023-05-03] MEDS: HYDROcodone/Acetaminophen 5/325 mg Tablet PO PRN ×3 (01:34→17:05)
[2023-05-03] MEDS: Oxybutynin 5 MG TAB PO SCH (09:32)
[2023-05-03] MEDS: Polyethylene Glycol 3350 17 GM Packet PO SCH (09:32)
[2023-05-03] MEDS: Citalopram 20 MG TAB PO SCH (09:32)
[2023-05-03] MEDS: NIFEdipine XL 30 MG TAB PO SCH ×2 (09:32→20:13)
[2023-05-03] MEDS: QUEtiapine 25 MG TAB PO SCH ×2 (09:32→20:13)
[2023-05-03] MEDS: hydrALAZINE 25 MG TAB PO SCH ×3 (09:32→20:14)
[2023-05-03] MEDS: Insulin NPH Human Isophane 100 UNITS/ML (10 ML VIAL) SC SCH ×2 (09:33→20:19)
[2023-05-03] MEDS: Senokot S 8.6-50 MG TAB PO SCH ×2 (09:33→20:13)
[2023-05-03] MEDS: metFORMIN 500 MG TAB PO SCH ×2 (09:33→17:06)
[2023-05-03] MEDS: cloNIDine 0.1 MG TAB PO SCH ×3 (09:33→20:13)
[2023-05-03] MEDS: Carvedilol 25 MG TAB PO SCH ×2 (09:33→17:06)
[2023-05-03] MEDS: Lisinopril 20 MG TAB PO SCH ×2 (09:33→20:13)
[2023-05-03] MEDS: Atorvastatin Calcium 40 MG TAB PO SCH (20:13)
[2023-05-03] MEDS: Melatonin 3 MG TAB PO PRN (23:15)
[2023-05-04] MEDS: Zolpidem Tartrate 5 MG TAB PO PRN (02:22)
[2023-05-04] MEDS: Scopolamine 1.5 mg/72 hour Patch TD SCH (02:23)
[2023-05-04] MEDS: hydrALAZINE 25 MG TAB PO SCH ×3 (09:19→20:00)
[2023-05-04] MEDS: Lisinopril 20 MG TAB PO SCH ×2 (09:21→20:01)
[2023-05-04] MEDS: NIFEdipine XL 30 MG TAB PO SCH ×2 (09:21→20:00)
[2023-05-04] MEDS: cloNIDine 0.1 MG TAB PO SCH ×3 (09:22→20:01)
[2023-05-04] MEDS: QUEtiapine 25 MG TAB PO SCH ×2 (09:23→20:01)
[2023-05-04] MEDS: Oxybutynin 5 MG TAB PO SCH (09:23)
[2023-05-04] MEDS: Citalopram 20 MG TAB PO SCH (09:24)
[2023-05-04] MEDS: metFORMIN 500 MG TAB PO SCH ×2 (09:24→18:18)
[2023-05-04] MEDS: Carvedilol 25 MG TAB PO SCH ×2 (09:24→18:18)
[2023-05-04] MEDS: Senokot S 8.6-50 MG TAB PO SCH ×2 (09:25→20:01)
[2023-05-04] MEDS: Insulin NPH Human Isophane 100 UNITS/ML (10 ML VIAL) SC SCH ×2 (09:29→20:02)
[2023-05-04] MEDS: Polyethylene Glycol 3350 17 GM Packet PO SCH (09:31)
[2023-05-04] MEDS: HYDROcodone/Acetaminophen 5/325 mg Tablet PO PRN ×3 (09:34→20:01)
[2023-05-04] MEDS: Atorvastatin Calcium 40 MG TAB PO SCH (20:01)
[2023-05-05] MEDS: Zolpidem Tartrate 5 MG TAB PO PRN (02:22)
[2023-05-05] MEDS: HYDROcodone/Acetaminophen 5/325 mg Tablet PO PRN ×3 (04:10→16:43)
[2023-05-05] MEDS: metFORMIN 500 MG TAB PO SCH ×2 (10:35→16:43)
[2023-05-05] MEDS: Carvedilol 25 MG TAB PO SCH ×2 (10:35→16:43)
[2023-05-05] MEDS: Citalopram 20 MG TAB PO SCH (10:35)
[2023-05-05] MEDS: QUEtiapine 25 MG TAB PO SCH ×2 (10:37→20:12)
[2023-05-05] MEDS: Oxybutynin 5 MG TAB PO SCH (10:37)
[2023-05-05] MEDS: Senokot S 8.6-50 MG TAB PO SCH ×2 (10:37→20:12)
[2023-05-05] MEDS: Polyethylene Glycol 3350 17 GM Packet PO SCH (10:37)
[2023-05-05] MEDS: cloNIDine 0.1 MG TAB PO SCH ×3 (10:39→20:13)
[2023-05-05] MEDS: NIFEdipine XL 30 MG TAB PO SCH ×2 (10:41→20:12)
[2023-05-05] MEDS: Lisinopril 20 MG TAB PO SCH ×2 (10:41→20:14)
[2023-05-05] MEDS: hydrALAZINE 25 MG TAB PO SCH ×3 (10:42→20:13)
[2023-05-05] MEDS: Insulin NPH Human Isophane 100 UNITS/ML (10 ML VIAL) SC SCH ×2 (10:42→20:15)
[2023-05-05] MEDS: Atorvastatin Calcium 40 MG TAB PO SCH (20:12)
[2023-05-05] MEDS: Melatonin 3 MG TAB PO PRN (20:13)
[2023-05-06] MEDS: Zolpidem Tartrate 5 MG TAB PO PRN ×2 (01:19→20:56)
[2023-05-06] MEDS: HYDROcodone/Acetaminophen 5/325 mg Tablet PO PRN ×4 (04:02→21:10)
[2023-05-06] MEDS: Polyethylene Glycol 3350 17 GM Packet PO SCH (08:34)
[2023-05-06] MEDS: NIFEdipine XL 30 MG TAB PO SCH ×2 (08:34→20:58)
[2023-05-06] MEDS: Lisinopril 20 MG TAB PO SCH ×2 (08:34→20:57)
[2023-05-06] MEDS: hydrALAZINE 25 MG TAB PO SCH ×3 (08:35→20:56)
[2023-05-06] MEDS: Oxybutynin 5 MG TAB PO SCH (08:36)
[2023-05-06] MEDS: Carvedilol 25 MG TAB PO SCH ×2 (08:36→16:29)
[2023-05-06] MEDS: metFORMIN 500 MG TAB PO SCH ×2 (08:36→16:29)
[2023-05-06] MEDS: Senokot S 8.6-50 MG TAB PO SCH ×2 (08:36→20:56)
[2023-05-06] MEDS: QUEtiapine 25 MG TAB PO SCH ×2 (08:36→20:58)
[2023-05-06] MEDS: cloNIDine 0.1 MG TAB PO SCH ×3 (08:36→20:57)
[2023-05-06] MEDS: Citalopram 20 MG TAB PO SCH (08:36)
[2023-05-06] MEDS: Insulin NPH Human Isophane 100 UNITS/ML (10 ML VIAL) SC SCH ×2 (08:37→20:58)
[2023-05-06] MEDS: Acetaminophen 325 MG TAB PER TUBE PRN (08:37)
[2023-05-06] MEDS: Atorvastatin Calcium 40 MG TAB PO SCH (20:56)
[2023-05-06] MEDS ORDERED: Hyoscyamine SL 0.125 MG TAB PO SCH (23:30)
[2023-05-07] MEDS: Scopolamine 1.5 mg/72 hour Patch TD SCH (02:55)
[2023-05-07] MEDS: HYDROcodone/Acetaminophen 5/325 mg Tablet PO PRN ×4 (03:24→21:51)
[2023-05-07] MEDS: Insulin NPH Human Isophane 100 UNITS/ML (10 ML VIAL) SC SCH ×2 (10:35→21:15)
[2023-05-07] MEDS: cloNIDine 0.1 MG TAB PO SCH ×3 (10:36→21:13)
[2023-05-07] MEDS: hydrALAZINE 25 MG TAB PO SCH ×3 (10:36→21:14)
[2023-05-07] MEDS: Carvedilol 25 MG TAB PO SCH ×2 (10:36→17:28)
[2023-05-07] MEDS: metFORMIN 500 MG TAB PO SCH ×2 (10:37→17:28)
[2023-05-07] MEDS: NIFEdipine XL 30 MG TAB PO SCH ×2 (10:37→21:13)
[2023-05-07] MEDS: Polyethylene Glycol 3350 17 GM Packet PO SCH (10:37)
[2023-05-07] MEDS: QUEtiapine 25 MG TAB PO SCH ×2 (10:37→21:13)
[2023-05-07] MEDS: Senokot S 8.6-50 MG TAB PO SCH ×2 (10:37→21:13)
[2023-05-07] MEDS: Oxybutynin 5 MG TAB PO SCH (10:37)
[2023-05-07] MEDS: Lisinopril 20 MG TAB PO SCH ×2 (10:38→21:10)
[2023-05-07] MEDS: Citalopram 20 MG TAB PO SCH (10:38)
[2023-05-07] MEDS: Atorvastatin Calcium 40 MG TAB PO SCH (21:10)
[2023-05-07] MEDS: Zolpidem Tartrate 5 MG TAB PO PRN (21:12)
[2023-05-08] MEDS: hydrALAZINE 25 MG TAB PO SCH ×3 (09:09→20:30)
[2023-05-08] MEDS: Carvedilol 25 MG TAB PO SCH ×2 (09:12→16:01)
[2023-05-08] MEDS: cloNIDine 0.1 MG TAB PO SCH ×3 (09:12→20:29)
[2023-05-08] MEDS: NIFEdipine XL 30 MG TAB PO SCH ×2 (09:12→20:26)
[2023-05-08] MEDS: Senokot S 8.6-50 MG TAB PO SCH ×2 (09:13→20:30)
[2023-05-08] MEDS: metFORMIN 500 MG TAB PO SCH ×2 (09:13→16:01)
[2023-05-08] MEDS: QUEtiapine 25 MG TAB PO SCH ×2 (09:13→20:30)
[2023-05-08] MEDS: Lisinopril 20 MG TAB PO SCH ×2 (09:13→20:30)
[2023-05-08] MEDS: Oxybutynin 5 MG TAB PO SCH (09:13)
[2023-05-08] MEDS: Citalopram 20 MG TAB PO SCH (09:13)
[2023-05-08] MEDS: Polyethylene Glycol 3350 17 GM Packet PO SCH (09:13)
[2023-05-08] MEDS: Insulin NPH Human Isophane 100 UNITS/ML (10 ML VIAL) SC SCH ×2 (09:14→21:03)
[2023-05-08] MEDS: HYDROcodone/Acetaminophen 5/325 mg Tablet PO PRN ×2 (15:58→20:30)
[2023-05-08] MEDS: Atorvastatin Calcium 40 MG TAB PO SCH (20:30)
[2023-05-08] MEDS: Zolpidem Tartrate 5 MG TAB PO PRN (20:30)
[2023-05-09] MEDS: HYDROcodone/Acetaminophen 5/325 mg Tablet PO PRN ×3 (05:44→14:53)
[2023-05-09] MEDS: NIFEdipine XL 30 MG TAB PO SCH ×2 (08:51→20:22)
[2023-05-09] MEDS: metFORMIN 500 MG TAB PO SCH ×2 (08:52→18:30)
[2023-05-09] MEDS: QUEtiapine 25 MG TAB PO SCH ×2 (08:52→20:18)
[2023-05-09] MEDS: Oxybutynin 5 MG TAB PO SCH (08:52)
[2023-05-09] MEDS: Insulin NPH Human Isophane 100 UNITS/ML (10 ML VIAL) SC SCH ×2 (08:52→21:07)
[2023-05-09] MEDS: Citalopram 20 MG TAB PO SCH (08:52)
[2023-05-09] MEDS: cloNIDine 0.1 MG TAB PO SCH ×3 (08:53→20:20)
[2023-05-09] MEDS: Carvedilol 25 MG TAB PO SCH ×2 (08:53→18:29)
[2023-05-09] MEDS: Lisinopril 20 MG TAB PO SCH ×2 (08:53→20:21)
[2023-05-09] MEDS: hydrALAZINE 25 MG TAB PO SCH ×3 (08:54→20:21)
[2023-05-09] MEDS: Polyethylene Glycol 3350 17 GM Packet PO SCH (08:54)
[2023-05-09] MEDS: Senokot S 8.6-50 MG TAB PO SCH ×2 (08:54→21:06)
[2023-05-09] MEDS: HumaLOG 300 UNITS/3 ML VIAL SC PRN (12:32)
[2023-05-09] MEDS: Zolpidem Tartrate 5 MG TAB PO PRN (20:18)
[2023-05-09] MEDS: Atorvastatin Calcium 40 MG TAB PO SCH (20:19)
[2023-05-10] MEDS: HYDROcodone/Acetaminophen 5/325 mg Tablet PO PRN ×4 (06:08→20:18)
[2023-05-10] MEDS: NIFEdipine XL 30 MG TAB PO SCH ×2 (11:00→20:21)
[2023-05-10] MEDS: Senokot S 8.6-50 MG TAB PO SCH ×2 (11:00→23:15)
[2023-05-10] MEDS: hydrALAZINE 25 MG TAB PO SCH ×3 (11:02→20:25)
[2023-05-10] MEDS: Oxybutynin 5 MG TAB PO SCH (11:03)
[2023-05-10] MEDS: cloNIDine 0.1 MG TAB PO SCH ×3 (11:03→20:25)
[2023-05-10] MEDS: Lisinopril 20 MG TAB PO SCH ×2 (11:04→20:20)
[2023-05-10] MEDS: QUEtiapine 25 MG TAB PO SCH ×2 (11:04→20:20)
[2023-05-10] MEDS: Citalopram 20 MG TAB PO SCH (11:05)
[2023-05-10] MEDS: metFORMIN 500 MG TAB PO SCH ×2 (11:09→17:30)
[2023-05-10] MEDS: Carvedilol 25 MG TAB PO SCH ×2 (11:10→17:15)
[2023-05-10] MEDS: Scopolamine 1.5 mg/72 hour Patch TD SCH (11:10)
[2023-05-10] MEDS: Polyethylene Glycol 3350 17 GM Packet PO SCH (11:14)
[2023-05-10] MEDS: Insulin NPH Human Isophane 100 UNITS/ML (10 ML VIAL) SC SCH ×2 (11:14→20:24)
[2023-05-10] MEDS: Zolpidem Tartrate 5 MG TAB PO PRN (20:17)
[2023-05-10] MEDS: Atorvastatin Calcium 40 MG TAB PO SCH (20:21)
[2023-05-11] MEDS: HYDROcodone/Acetaminophen 5/325 mg Tablet PO PRN ×3 (08:24→21:03)
[2023-05-11] MEDS: hydrALAZINE 25 MG TAB PO SCH ×3 (08:26→21:03)
[2023-05-11] MEDS: Lisinopril 20 MG TAB PO SCH ×2 (08:27→21:05)
[2023-05-11] MEDS: Carvedilol 25 MG TAB PO SCH ×2 (08:28→17:43)
[2023-05-11] MEDS: QUEtiapine 25 MG TAB PO SCH ×2 (08:28→21:04)
[2023-05-11] MEDS: NIFEdipine XL 30 MG TAB PO SCH ×2 (08:28→21:02)
[2023-05-11] MEDS: Oxybutynin 5 MG TAB PO SCH (08:28)
[2023-05-11] MEDS: cloNIDine 0.1 MG TAB PO SCH ×3 (08:32→21:04)
[2023-05-11] MEDS: Insulin NPH Human Isophane 100 UNITS/ML (10 ML VIAL) SC SCH ×2 (08:32→21:59)
[2023-05-11] MEDS: Citalopram 20 MG TAB PO SCH (08:32)
[2023-05-11] MEDS: metFORMIN 500 MG TAB PO SCH ×2 (08:32→17:43)
[2023-05-11] MEDS: Senokot S 8.6-50 MG TAB PO SCH ×2 (08:33→21:04)
[2023-05-11] MEDS: Polyethylene Glycol 3350 17 GM Packet PO SCH (08:41)
[2023-05-11] MEDS: HumaLOG 300 UNITS/3 ML VIAL SC PRN (16:41)
[2023-05-11] MEDS: Atorvastatin Calcium 40 MG TAB PO SCH (21:05)
[2023-05-11] MEDS: Zolpidem Tartrate 5 MG TAB PO PRN (21:05)
[2023-05-12] MEDS: HumaLOG 300 UNITS/3 ML VIAL SC PRN ×2 (06:05→14:46)
[2023-05-12] MEDS: Carvedilol 25 MG TAB PO SCH ×2 (09:53→17:13)
[2023-05-12] MEDS: cloNIDine 0.1 MG TAB PO SCH ×3 (09:53→20:19)
[2023-05-12] MEDS: metFORMIN 500 MG TAB PO SCH ×2 (09:53→17:13)
[2023-05-12] MEDS: Fluticasone Propionate Nasal Spray 16 gm Bottle NASAL SCH (09:55)
[2023-05-12] MEDS: hydrALAZINE 25 MG TAB PO SCH ×3 (09:55→20:19)
[2023-05-12] MEDS: Oxybutynin 5 MG TAB PO SCH (09:57)
[2023-05-12] MEDS: Senokot S 8.6-50 MG TAB PO SCH ×2 (09:57→20:19)
[2023-05-12] MEDS: QUEtiapine 25 MG TAB PO SCH ×2 (09:57→20:20)
[2023-05-12] MEDS: Lisinopril 20 MG TAB PO SCH ×2 (09:57→20:19)
[2023-05-12] MEDS: Citalopram 20 MG TAB PO SCH (09:57)
[2023-05-12] MEDS: Insulin NPH Human Isophane 100 UNITS/ML (10 ML VIAL) SC SCH ×2 (09:58→20:18)
[2023-05-12] MEDS: NIFEdipine XL 30 MG TAB PO SCH ×2 (09:58→20:18)
[2023-05-12] MEDS: Polyethylene Glycol 3350 17 GM Packet PO SCH (09:59)
[2023-05-12] MEDS: HYDROcodone/Acetaminophen 5/325 mg Tablet PO PRN ×3 (10:02→20:20)
[2023-05-12] MEDS: Zolpidem Tartrate 5 MG TAB PO PRN (20:18)
[2023-05-12] MEDS: Atorvastatin Calcium 40 MG TAB PO SCH (20:20)
[2023-05-13] MEDS: HYDROcodone/Acetaminophen 5/325 mg Tablet PO PRN ×3 (02:05→21:01)
[2023-05-13] MEDS: cloNIDine 0.1 MG TAB PO SCH ×3 (09:41→21:01)
[2023-05-13] MEDS: Citalopram 20 MG TAB PO SCH (09:41)
[2023-05-13] MEDS: Scopolamine 1.5 mg/72 hour Patch TD SCH (09:41)
[2023-05-13] MEDS: Polyethylene Glycol 3350 17 GM Packet PO SCH (09:41)
[2023-05-13] MEDS: Insulin NPH Human Isophane 100 UNITS/ML (10 ML VIAL) SC SCH ×2 (09:41→21:02)
[2023-05-13] MEDS: QUEtiapine 25 MG TAB PO SCH ×2 (09:41→21:01)
[2023-05-13] MEDS: NIFEdipine XL 30 MG TAB PO SCH ×2 (09:41→21:01)
[2023-05-13] MEDS: Carvedilol 25 MG TAB PO SCH ×2 (09:41→17:37)
[2023-05-13] MEDS: metFORMIN 500 MG TAB PO SCH ×2 (09:42→17:38)
[2023-05-13] MEDS: Lisinopril 20 MG TAB PO SCH ×2 (09:42→21:01)
[2023-05-13] MEDS: Oxybutynin 5 MG TAB PO SCH (09:42)
[2023-05-13] MEDS: hydrALAZINE 25 MG TAB PO SCH ×3 (09:42→21:01)
[2023-05-13] MEDS: Senokot S 8.6-50 MG TAB PO SCH ×2 (09:42→21:01)
[2023-05-13] MEDS: Fluticasone Propionate Nasal Spray 16 gm Bottle NASAL SCH (11:22)
[2023-05-13] MEDS: HumaLOG 300 UNITS/3 ML VIAL SC PRN (11:23)
[2023-05-13] MEDS: Atorvastatin Calcium 40 MG TAB PO SCH (21:00)
[2023-05-13] MEDS: Melatonin 3 MG TAB PO PRN (21:00)
[2023-05-13] MEDS: Zolpidem Tartrate 5 MG TAB PO PRN (21:00)
[2023-05-14] MEDS: HYDROcodone/Acetaminophen 5/325 mg Tablet PO PRN ×3 (04:04→22:58)
[2023-05-14] MEDS: Insulin NPH Human Isophane 100 UNITS/ML (10 ML VIAL) SC SCH ×2 (09:55→19:21)
[2023-05-14] MEDS: Polyethylene Glycol 3350 17 GM Packet PO SCH (09:55)
[2023-05-14] MEDS: Fluticasone Propionate Nasal Spray 16 gm Bottle NASAL SCH (09:55)
[2023-05-14] MEDS: NIFEdipine XL 30 MG TAB PO SCH ×2 (09:56→19:20)
[2023-05-14] MEDS: hydrALAZINE 25 MG TAB PO SCH ×3 (09:56→19:25)
[2023-05-14] MEDS: Carvedilol 25 MG TAB PO SCH ×2 (09:56→17:45)
[2023-05-14] MEDS: Senokot S 8.6-50 MG TAB PO SCH ×2 (09:56→19:21)
[2023-05-14] MEDS: QUEtiapine 25 MG TAB PO SCH ×2 (09:56→19:20)
[2023-05-14] MEDS: Citalopram 20 MG TAB PO SCH (09:56)
[2023-05-14] MEDS: Lisinopril 20 MG TAB PO SCH ×2 (09:57→19:20)
[2023-05-14] MEDS: Oxybutynin 5 MG TAB PO SCH (09:57)
[2023-05-14] MEDS: cloNIDine 0.1 MG TAB PO SCH ×3 (09:57→19:20)
[2023-05-14] MEDS: metFORMIN 500 MG TAB PO SCH ×2 (09:57→17:45)
[2023-05-14] MEDS: Atorvastatin Calcium 40 MG TAB PO SCH (19:21)
[2023-05-14] MEDS: Melatonin 3 MG TAB PO PRN (19:21)
[2023-05-15] MEDS: HYDROcodone/Acetaminophen 5/325 mg Tablet PO PRN (09:57)
[2023-05-15] MEDS: Lisinopril 20 MG TAB PO SCH ×2 (09:58→21:12)
[2023-05-15] MEDS: hydrALAZINE 25 MG TAB PO SCH ×3 (09:58→21:11)
[2023-05-15] MEDS: Oxybutynin 5 MG TAB PO SCH (09:58)
[2023-05-15] MEDS: NIFEdipine XL 30 MG TAB PO SCH ×2 (09:58→21:13)
[2023-05-15] MEDS: QUEtiapine 25 MG TAB PO SCH ×2 (09:59→21:13)
[2023-05-15] MEDS: Fluticasone Propionate Nasal Spray 16 gm Bottle NASAL SCH (09:59)
[2023-05-15] MEDS: Carvedilol 25 MG TAB PO SCH ×2 (09:59→17:24)
[2023-05-15] MEDS: cloNIDine 0.1 MG TAB PO SCH ×3 (09:59→21:12)
[2023-05-15] MEDS: metFORMIN 500 MG TAB PO SCH ×2 (09:59→17:32)
[2023-05-15] MEDS: Citalopram 20 MG TAB PO SCH (09:59)
[2023-05-15] MEDS: Senokot S 8.6-50 MG TAB PO SCH ×2 (10:00→21:12)
[2023-05-15] MEDS: Insulin NPH Human Isophane 100 UNITS/ML (10 ML VIAL) SC SCH ×2 (10:00→21:13)
[2023-05-15] MEDS: Polyethylene Glycol 3350 17 GM Packet PO SCH (10:00)
[2023-05-15] MEDS: Atorvastatin Calcium 40 MG TAB PO SCH (21:11)
[2023-05-15] MEDS: Melatonin 3 MG TAB PO PRN (21:11)
[2023-05-15] MEDS: Zolpidem Tartrate 5 MG TAB PO PRN (21:13)
[2023-05-16] MEDS: HYDROcodone/Acetaminophen 5/325 mg Tablet PO PRN ×4 (06:25→23:53)
[2023-05-16] MEDS: Polyethylene Glycol 3350 17 GM Packet PO SCH (08:19)
[2023-05-16] MEDS: Oxybutynin 5 MG TAB PO SCH (08:22)
[2023-05-16] MEDS: hydrALAZINE 25 MG TAB PO SCH ×3 (08:22→20:24)
[2023-05-16] MEDS: NIFEdipine XL 30 MG TAB PO SCH ×2 (08:23→20:25)
[2023-05-16] MEDS: metFORMIN 500 MG TAB PO SCH ×2 (08:23→16:56)
[2023-05-16] MEDS: Senokot S 8.6-50 MG TAB PO SCH ×2 (08:23→20:25)
[2023-05-16] MEDS: Citalopram 20 MG TAB PO SCH (08:23)
[2023-05-16] MEDS: cloNIDine 0.1 MG TAB PO SCH ×3 (08:23→20:25)
[2023-05-16] MEDS: Carvedilol 25 MG TAB PO SCH ×2 (08:24→16:56)
[2023-05-16] MEDS: Lisinopril 20 MG TAB PO SCH ×2 (08:24→20:25)
[2023-05-16] MEDS: Scopolamine 1.5 mg/72 hour Patch TD SCH (08:24)
[2023-05-16] MEDS: Insulin NPH Human Isophane 100 UNITS/ML (10 ML VIAL) SC SCH ×2 (09:47→21:23)
[2023-05-16] MEDS: QUEtiapine 25 MG TAB PO SCH ×2 (09:47→20:25)
[2023-05-16] MEDS: Fluticasone Propionate Nasal Spray 16 gm Bottle NASAL SCH (10:32)
[2023-05-16] MEDS: Atorvastatin Calcium 40 MG TAB PO SCH (20:25)
[2023-05-16] MEDS: Zolpidem Tartrate 5 MG TAB PO PRN (20:25)
[2023-05-16] MEDS: Melatonin 3 MG TAB PO PRN (20:25)
[2023-05-17] MEDS: HYDROcodone/Acetaminophen 5/325 mg Tablet PO PRN ×3 (06:15→18:13)
[2023-05-17] MEDS: Insulin NPH Human Isophane 100 UNITS/ML (10 ML VIAL) SC SCH ×2 (10:00→20:48)
[2023-05-17] MEDS: metFORMIN 500 MG TAB PO SCH ×3 (10:00→18:11)
[2023-05-17] MEDS: NIFEdipine XL 30 MG TAB PO SCH ×3 (10:09→20:47)
[2023-05-17] MEDS: hydrALAZINE 25 MG TAB PO SCH ×4 (10:10→20:46)
[2023-05-17] MEDS: Oxybutynin 5 MG TAB PO SCH (10:10)
[2023-05-17] MEDS: Polyethylene Glycol 3350 17 GM Packet PO SCH (10:10)
[2023-05-17] MEDS: Lisinopril 20 MG TAB PO SCH ×3 (10:10→20:47)
[2023-05-17] MEDS: cloNIDine 0.1 MG TAB PO SCH ×4 (10:10→20:47)
[2023-05-17] MEDS: Carvedilol 25 MG TAB PO SCH ×3 (10:11→18:11)
[2023-05-17] MEDS: Senokot S 8.6-50 MG TAB PO SCH ×2 (10:11→20:47)
[2023-05-17] MEDS: Citalopram 20 MG TAB PO SCH (10:11)
[2023-05-17] MEDS: QUEtiapine 25 MG TAB PO SCH ×2 (10:11→20:47)
[2023-05-17] MEDS: Fluticasone Propionate Nasal Spray 16 gm Bottle NASAL SCH (14:03)
[2023-05-17] MEDS: Zolpidem Tartrate 5 MG TAB PO PRN (20:45)
[2023-05-17] MEDS: Atorvastatin Calcium 40 MG TAB PO SCH (20:46)
[2023-05-17] MEDS: Melatonin 3 MG TAB PO PRN (20:47)
[2023-05-18] MEDS: HYDROcodone/Acetaminophen 5/325 mg Tablet PO PRN ×4 (04:34→21:05)
[2023-05-18] MEDS: Citalopram 20 MG TAB PO SCH (08:59)
[2023-05-18] MEDS: metFORMIN 500 MG TAB PO SCH ×2 (09:00→17:08)
[2023-05-18] MEDS: hydrALAZINE 25 MG TAB PO SCH ×3 (09:00→21:04)
[2023-05-18] MEDS: Oxybutynin 5 MG TAB PO SCH (09:01)
[2023-05-18] MEDS: cloNIDine 0.1 MG TAB PO SCH ×3 (09:01→21:05)
[2023-05-18] MEDS: Acetaminophen 325 MG TAB PER TUBE PRN (09:01)
[2023-05-18] MEDS: Senokot S 8.6-50 MG TAB PO SCH ×2 (09:02→21:06)
[2023-05-18] MEDS: NIFEdipine XL 30 MG TAB PO SCH ×2 (09:02→21:05)
[2023-05-18] MEDS: Lisinopril 20 MG TAB PO SCH ×2 (09:02→21:06)
[2023-05-18] MEDS: QUEtiapine 25 MG TAB PO SCH ×2 (09:02→21:06)
[2023-05-18] MEDS: Carvedilol 25 MG TAB PO SCH ×2 (09:02→17:08)
[2023-05-18] MEDS: Polyethylene Glycol 3350 17 GM Packet PO SCH (09:03)
[2023-05-18] MEDS: Insulin NPH Human Isophane 100 UNITS/ML (10 ML VIAL) SC SCH ×2 (09:03→21:04)
[2023-05-18] MEDS: Fluticasone Propionate Nasal Spray 16 gm Bottle NASAL SCH (12:47)
[2023-05-18 17:43] LABS: #Eosinphils 0.2 thou/uL (0.0-0.7); #Monocytes 0.6 thou/uL (0.11-0.59); #Neutrophils 2.8 thou/uL (1.40-6.50); %Basophils 0.6 % (0.0-1.0); %Eosinophils 3.9 % (0.0-10.0); %Lymphocytes 31.6 % (21.0-51.0); %Monocytes 10.9 % (0.0-10.0); %Neutrophils 52.8 % (42.0-75.0); Hematocrit 35.3 % (36.0-47.0); Hemoglobin 11.5 g/dL (12.0-16.0); Mean Corpuscular HGB CONC 32.6 g/dL (32.0-36.0); Mean Corpuscular Hemoglobin 28.8 pg (27.0-31.0); Mean Corpuscular Volume 88.5 fl (78.0-98.0); Mean Platelet Volume 9.1 fL (7.4-10.4); Platelet Count 290 10x3/uL (130-400); RBC Distribution Width 15.8 % (11.5-14.5); Red Blood Cell (RBC) Count 3.99 mill/uL (4.20-5.40); White Blood Cell (WBC) Count 5.3 10x3/uL (4.8-10.8)
[2023-05-18] MEDS: Melatonin 3 MG TAB PO PRN (21:05)
[2023-05-18] MEDS: Zolpidem Tartrate 5 MG TAB PO PRN (21:05)
[2023-05-18] MEDS: Atorvastatin Calcium 40 MG TAB PO SCH (21:06)
[2023-05-18 23:37] LABS: Bacteria/HPF 2+ HPF (None Seen); Bilirubin Negative (Negative); Blood, Urine 2+ (Negative); Clarity Extra Turbid (Clear); Glucose, Urine (Dipstick) Normal (Negative); Ketone, Urine Negative (Negative); Leukocyte 500 Leu/uL (Negative); Nitrite Negative (Negative); Protein, Urine (Dipstick) 100 mg/dL (Neg-Trace); RBC/HPF Greater than 50 HPF (0-3); Specific Gravity, Urine 1.021 (1.002-1.036); Squamous Epithelial None Seen HPF (0-3); Urobilinogen Normal mg/dL (Less than 2); WBC/HPF Greater than 50 HPF (0-3)
[2023-05-19] MEDS: Oxybutynin 5 MG TAB PO SCH (08:46)
[2023-05-19] MEDS: Citalopram 20 MG TAB PO SCH (08:46)
[2023-05-19] MEDS: Carvedilol 25 MG TAB PO SCH ×2 (08:46→16:00)
[2023-05-19] MEDS: Senokot S 8.6-50 MG TAB PO SCH ×2 (08:46→21:30)
[2023-05-19] MEDS: Polyethylene Glycol 3350 17 GM Packet PO SCH (08:46)
[2023-05-19] MEDS: NIFEdipine XL 30 MG TAB PO SCH ×2 (08:46→21:28)
[2023-05-19] MEDS: QUEtiapine 25 MG TAB PO SCH ×2 (08:46→21:30)
[2023-05-19] MEDS: metFORMIN 500 MG TAB PO SCH ×2 (08:46→16:00)
[2023-05-19] MEDS: Insulin NPH Human Isophane 100 UNITS/ML (10 ML VIAL) SC SCH ×2 (08:47→21:30)
[2023-05-19] MEDS: Scopolamine 1.5 mg/72 hour Patch TD SCH (08:47)
[2023-05-19] MEDS: Acetaminophen 325 MG TAB PER TUBE PRN ×2 (08:47→15:59)
[2023-05-19] MEDS: hydrALAZINE 25 MG TAB PO SCH ×3 (09:03→21:29)
[2023-05-19] MEDS: Fluticasone Propionate Nasal Spray 16 gm Bottle NASAL SCH (09:03)
[2023-05-19] MEDS: cloNIDine 0.1 MG TAB PO SCH ×3 (09:03→21:29)
[2023-05-19] MEDS: Lisinopril 20 MG TAB PO SCH ×2 (09:04→21:30)
[2023-05-19] MEDS: cefTRIAXone\\ROCEPHIN 1 GM in Sodium Chloride 0.9% 100 ML IVPB SCH (12:15)
[2023-05-19] MEDS: Melatonin 3 MG TAB PO PRN (21:29)
[2023-05-19] MEDS: Atorvastatin Calcium 40 MG TAB PO SCH (21:29)
[2023-05-20] MEDS: cefTRIAXone\\ROCEPHIN 1 GM in Sodium Chloride 0.9% 100 ML IVPB SCH (10:08)
[2023-05-20] MEDS: NIFEdipine XL 30 MG TAB PO SCH ×2 (10:09→20:46)
[2023-05-20] MEDS: Polyethylene Glycol 3350 17 GM Packet PO SCH ×2 (10:09→10:10)
[2023-05-20] MEDS: Acetaminophen 325 MG TAB PER TUBE PRN (10:09)
[2023-05-20] MEDS: metFORMIN 500 MG TAB PO SCH ×2 (10:10→17:55)
[2023-05-20] MEDS: QUEtiapine 25 MG TAB PO SCH ×2 (10:10→20:46)
[2023-05-20] MEDS: Senokot S 8.6-50 MG TAB PO SCH ×2 (10:10→20:46)
[2023-05-20] MEDS: Carvedilol 25 MG TAB PO SCH ×2 (10:10→17:55)
[2023-05-20] MEDS: Citalopram 20 MG TAB PO SCH (10:10)
[2023-05-20] MEDS: Oxybutynin 5 MG TAB PO SCH (10:10)
[2023-05-20] MEDS: Fluticasone Propionate Nasal Spray 16 gm Bottle NASAL SCH (10:11)
[2023-05-20] MEDS: cloNIDine 0.1 MG TAB PO SCH ×3 (10:11→20:45)
[2023-05-20] MEDS: hydrALAZINE 25 MG TAB PO SCH ×3 (10:12→20:45)
[2023-05-20] MEDS: Lisinopril 20 MG TAB PO SCH ×2 (10:12→20:46)
[2023-05-20] MEDS: Insulin NPH Human Isophane 100 UNITS/ML (10 ML VIAL) SC SCH ×2 (10:15→22:18)
[2023-05-20] MEDS: HYDROcodone/Acetaminophen 5/325 mg Tablet PO PRN (15:01)
[2023-05-20] MEDS: Melatonin 3 MG TAB PO PRN (20:45)
[2023-05-20] MEDS: Atorvastatin Calcium 40 MG TAB PO SCH (20:46)
[2023-05-21] MEDS: Oxybutynin 5 MG TAB PO SCH (09:26)
[2023-05-21] MEDS: QUEtiapine 25 MG TAB PO SCH ×2 (09:26→20:21)
[2023-05-21] MEDS: NIFEdipine XL 30 MG TAB PO SCH ×2 (09:26→20:20)
[2023-05-21] MEDS: cloNIDine 0.1 MG TAB PO SCH ×3 (09:27→20:20)
[2023-05-21] MEDS: Citalopram 20 MG TAB PO SCH (09:28)
[2023-05-21] MEDS: Carvedilol 25 MG TAB PO SCH ×2 (09:28→16:28)
[2023-05-21] MEDS: Lisinopril 20 MG TAB PO SCH ×2 (09:28→20:21)
[2023-05-21] MEDS: hydrALAZINE 25 MG TAB PO SCH ×3 (09:28→20:21)
[2023-05-21] MEDS: metFORMIN 500 MG TAB PO SCH ×2 (09:29→16:29)
[2023-05-21] MEDS: Senokot S 8.6-50 MG TAB PO SCH ×2 (09:29→20:20)
[2023-05-21] MEDS: Insulin NPH Human Isophane 100 UNITS/ML (10 ML VIAL) SC SCH (09:30)
[2023-05-21] MEDS: Fluticasone Propionate Nasal Spray 16 gm Bottle NASAL SCH (09:31)
[2023-05-21] MEDS: cefTRIAXone\\ROCEPHIN 1 GM in Sodium Chloride 0.9% 100 ML IVPB SCH (09:31)
[2023-05-21] MEDS: Acetaminophen 325 MG TAB PER TUBE PRN ×3 (09:44→20:32)
[2023-05-21] MEDS: Melatonin 3 MG TAB PO PRN (20:20)
[2023-05-21] MEDS: Atorvastatin Calcium 40 MG TAB PO SCH (20:21)
[2023-05-21] MEDS: Zolpidem Tartrate 5 MG TAB PO PRN (20:21)
[2023-05-22] MEDS: hydrALAZINE 25 MG TAB PO SCH ×3 (08:23→21:00)
[2023-05-22] MEDS: Lisinopril 20 MG TAB PO SCH ×2 (08:24→21:02)
[2023-05-22] MEDS: Carvedilol 25 MG TAB PO SCH ×2 (08:24→17:03)
[2023-05-22] MEDS: Oxybutynin 5 MG TAB PO SCH (08:24)
[2023-05-22] MEDS: Citalopram 20 MG TAB PO SCH (08:24)
[2023-05-22] MEDS: NIFEdipine XL 30 MG TAB PO SCH ×2 (08:25→21:01)
[2023-05-22] MEDS: cloNIDine 0.1 MG TAB PO SCH ×3 (08:25→21:03)
[2023-05-22] MEDS: Scopolamine 1.5 mg/72 hour Patch TD SCH (08:25)
[2023-05-22] MEDS: Polyethylene Glycol 3350 17 GM Packet PO SCH (08:25)
[2023-05-22] MEDS: QUEtiapine 25 MG TAB PO SCH ×2 (08:25→21:02)
[2023-05-22] MEDS: Senokot S 8.6-50 MG TAB PO SCH ×2 (08:25→21:01)
[2023-05-22] MEDS: metFORMIN 500 MG TAB PO SCH ×2 (08:25→17:03)
[2023-05-22] MEDS: Fluticasone Propionate Nasal Spray 16 gm Bottle NASAL SCH (08:26)
[2023-05-22] MEDS: cefTRIAXone\\ROCEPHIN 1 GM in Sodium Chloride 0.9% 100 ML IVPB SCH (10:39)
[2023-05-22] MEDS: HumaLOG 300 UNITS/3 ML VIAL SC PRN (18:56)
[2023-05-22] MEDS: Atorvastatin Calcium 40 MG TAB PO SCH (21:01)
[2023-05-22] MEDS: Melatonin 3 MG TAB PO PRN ×2 (21:02→21:08)
[2023-05-22] MEDS: Zolpidem Tartrate 5 MG TAB PO PRN (21:04)
[2023-05-23] MEDS: HumaLOG 300 UNITS/3 ML VIAL SC PRN ×3 (05:47→16:52)
[2023-05-23] MEDS: hydrALAZINE 25 MG TAB PO SCH ×3 (08:47→20:32)
[2023-05-23] MEDS: NIFEdipine XL 30 MG TAB PO SCH ×2 (08:48→20:33)
[2023-05-23] MEDS: cloNIDine 0.1 MG TAB PO SCH ×3 (08:48→20:31)
[2023-05-23] MEDS: Senokot S 8.6-50 MG TAB PO SCH ×2 (08:48→20:30)
[2023-05-23] MEDS: Oxybutynin 5 MG TAB PO SCH (08:48)
[2023-05-23] MEDS: Lisinopril 20 MG TAB PO SCH ×2 (08:48→20:32)
[2023-05-23] MEDS: cefTRIAXone\\ROCEPHIN 1 GM in Sodium Chloride 0.9% 100 ML IVPB SCH (08:49)
[2023-05-23] MEDS: Polyethylene Glycol 3350 17 GM Packet PO SCH (08:49)
[2023-05-23] MEDS: Citalopram 20 MG TAB PO SCH (08:49)
[2023-05-23] MEDS: Carvedilol 25 MG TAB PO SCH ×2 (08:49→16:47)
[2023-05-23] MEDS: QUEtiapine 25 MG TAB PO SCH ×2 (08:49→20:29)
[2023-05-23] MEDS: metFORMIN 500 MG TAB PO SCH ×2 (08:49→16:47)
[2023-05-23] MEDS: Fluticasone Propionate Nasal Spray 16 gm Bottle NASAL SCH (08:50)
[2023-05-23] MEDS: Atorvastatin Calcium 40 MG TAB PO SCH (20:29)
[2023-05-23] MEDS: Zolpidem Tartrate 5 MG TAB PO PRN (20:30)
[2023-05-24] MEDS: cefTRIAXone\\ROCEPHIN 1 GM in Sodium Chloride 0.9% 100 ML IVPB SCH (09:10)
[2023-05-24] MEDS: NIFEdipine XL 30 MG TAB PO SCH ×2 (09:11→20:11)
[2023-05-24] MEDS: hydrALAZINE 25 MG TAB PO SCH ×3 (09:11→20:10)
[2023-05-24] MEDS: Oxybutynin 5 MG TAB PO SCH (09:11)
[2023-05-24] MEDS: Polyethylene Glycol 3350 17 GM Packet PO SCH (09:11)
[2023-05-24] MEDS: Carvedilol 25 MG TAB PO SCH ×2 (09:12→16:51)
[2023-05-24] MEDS: QUEtiapine 25 MG TAB PO SCH ×2 (09:12→20:09)
[2023-05-24] MEDS: Senokot S 8.6-50 MG TAB PO SCH ×2 (09:12→20:12)
[2023-05-24] MEDS: Fluticasone Propionate Nasal Spray 16 gm Bottle NASAL SCH (09:12)
[2023-05-24] MEDS: cloNIDine 0.1 MG TAB PO SCH ×3 (09:12→20:09)
[2023-05-24] MEDS: Citalopram 20 MG TAB PO SCH (09:12)
[2023-05-24] MEDS: metFORMIN 500 MG TAB PO SCH ×2 (09:12→16:51)
[2023-05-24] MEDS: Lisinopril 20 MG TAB PO SCH ×2 (09:12→20:11)
[2023-05-24] MEDS: Acetaminophen 325 MG TAB PER TUBE PRN ×2 (13:56→21:30)
[2023-05-24] MEDS: HumaLOG 300 UNITS/3 ML VIAL SC PRN ×2 (16:52→21:25)
[2023-05-24] MEDS: Atorvastatin Calcium 40 MG TAB PO SCH (20:10)
[2023-05-24] MEDS: Zolpidem Tartrate 5 MG TAB PO PRN (20:13)
[2023-05-25] MEDS: Acetaminophen 325 MG TAB PER TUBE PRN ×3 (04:13→17:21)
[2023-05-25] MEDS: Scopolamine 1.5 mg/72 hour Patch TD SCH (08:29)
[2023-05-25] MEDS: metFORMIN 500 MG TAB PO SCH ×2 (08:30→17:21)
[2023-05-25] MEDS: NIFEdipine XL 30 MG TAB PO SCH ×2 (08:30→21:53)
[2023-05-25] MEDS: Oxybutynin 5 MG TAB PO SCH (08:30)
[2023-05-25] MEDS: hydrALAZINE 25 MG TAB PO SCH ×3 (08:30→21:54)
[2023-05-25] MEDS: Lisinopril 20 MG TAB PO SCH ×2 (08:30→21:56)
[2023-05-25] MEDS: Citalopram 20 MG TAB PO SCH (08:31)
[2023-05-25] MEDS: Senokot S 8.6-50 MG TAB PO SCH ×2 (08:31→21:56)
[2023-05-25] MEDS: QUEtiapine 25 MG TAB PO SCH ×2 (08:31→21:55)
[2023-05-25] MEDS: Fluticasone Propionate Nasal Spray 16 gm Bottle NASAL SCH (08:31)
[2023-05-25] MEDS: Polyethylene Glycol 3350 17 GM Packet PO SCH (08:31)
[2023-05-25] MEDS: Carvedilol 25 MG TAB PO SCH ×2 (08:31→17:21)
[2023-05-25] MEDS: cloNIDine 0.1 MG TAB PO SCH ×3 (08:31→21:53)
[2023-05-25] MEDS: HumaLOG 300 UNITS/3 ML VIAL SC PRN (13:19)
[2023-05-25] MEDS: Atorvastatin Calcium 40 MG TAB PO SCH (21:54)
[2023-05-25] MEDS: Melatonin 3 MG TAB PO PRN (21:55)
[2023-05-25] MEDS: Zolpidem Tartrate 5 MG TAB PO PRN (21:55)
[2023-05-26] MEDS: Oxybutynin 5 MG TAB PO SCH (08:38)
[2023-05-26] MEDS: Carvedilol 25 MG TAB PO SCH ×2 (08:38→16:31)
[2023-05-26] MEDS: Citalopram 20 MG TAB PO SCH (08:38)
[2023-05-26] MEDS: cloNIDine 0.1 MG TAB PO SCH ×4 (08:39→21:35)
[2023-05-26] MEDS: hydrALAZINE 25 MG TAB PO SCH ×3 (08:39→21:31)
[2023-05-26] MEDS: Lisinopril 20 MG TAB PO SCH ×2 (08:39→21:29)
[2023-05-26] MEDS: Acetaminophen 325 MG TAB PER TUBE PRN (08:39)
[2023-05-26] MEDS: metFORMIN 500 MG TAB PO SCH ×2 (08:39→16:31)
[2023-05-26] MEDS: QUEtiapine 25 MG TAB PO SCH ×2 (08:40→21:28)
[2023-05-26] MEDS: NIFEdipine XL 30 MG TAB PO SCH ×2 (08:40→21:28)
[2023-05-26] MEDS: Senokot S 8.6-50 MG TAB PO SCH ×2 (08:40→21:28)
[2023-05-26] MEDS: Fluticasone Propionate Nasal Spray 16 gm Bottle NASAL SCH (08:41)
[2023-05-26] MEDS: Polyethylene Glycol 3350 17 GM Packet PO SCH (08:41)
[2023-05-26] MEDS: HumaLOG 300 UNITS/3 ML VIAL SC PRN (12:19)
[2023-05-26] MEDS: Zolpidem Tartrate 5 MG TAB PO PRN (21:27)
[2023-05-26] MEDS: Melatonin 3 MG TAB PO PRN (21:28)
[2023-05-26] MEDS: Atorvastatin Calcium 40 MG TAB PO SCH (21:29)
[2023-05-27] MEDS: HumaLOG 300 UNITS/3 ML VIAL SC PRN ×2 (06:10→13:36)
[2023-05-27] MEDS: QUEtiapine 25 MG TAB PO SCH ×2 (08:50→20:55)
[2023-05-27] MEDS: metFORMIN 500 MG TAB PO SCH ×2 (08:50→17:28)
[2023-05-27] MEDS: Polyethylene Glycol 3350 17 GM Packet PO SCH (08:51)
[2023-05-27] MEDS: Carvedilol 25 MG TAB PO SCH ×2 (08:51→17:28)
[2023-05-27] MEDS: Senokot S 8.6-50 MG TAB PO SCH ×2 (08:51→20:54)
[2023-05-27] MEDS: Oxybutynin 5 MG TAB PO SCH (08:51)
[2023-05-27] MEDS: Citalopram 20 MG TAB PO SCH (08:52)
[2023-05-27] MEDS: Fluticasone Propionate Nasal Spray 16 gm Bottle NASAL SCH (08:52)
[2023-05-27] MEDS: hydrALAZINE 25 MG TAB PO SCH ×3 (08:52→20:54)
[2023-05-27] MEDS: NIFEdipine XL 30 MG TAB PO SCH ×2 (08:52→20:55)
[2023-05-27] MEDS: cloNIDine 0.1 MG TAB PO SCH ×3 (08:52→20:55)
[2023-05-27] MEDS: Lisinopril 20 MG TAB PO SCH ×2 (08:53→20:55)
[2023-05-27] MEDS: Acetaminophen 325 MG TAB PER TUBE PRN (09:11)
[2023-05-27 09:37] LABS: #Eosinphils 0.2 thou/uL (0.0-0.7); #Monocytes 0.5 thou/uL (0.11-0.59); #Neutrophils 4.1 thou/uL (1.40-6.50); %Basophils 0.5 % (0.0-1.0); %Eosinophils 3.3 % (0.0-10.0); %Monocytes 6.9 % (0.0-10.0); Hematocrit 34.6 % (36.0-47.0); Hemoglobin 11.3 g/dL (12.0-16.0); Mean Corpuscular HGB CONC 32.7 g/dL (32.0-36.0); Mean Corpuscular Hemoglobin 28.6 pg (27.0-31.0); Mean Corpuscular Volume 87.6 fl (78.0-98.0); Mean Platelet Volume 8.5 fL (7.4-10.4); Platelet Count 277 10x3/uL (130-400); RBC Distribution Width 15.2 % (11.5-14.5); Red Blood Cell (RBC) Count 3.95 mill/uL (4.20-5.40); White Blood Cell (WBC) Count 6.6 10x3/uL (4.8-10.8)
[2023-05-27 10:05] LABS: Anion Gap 12 mmol/L (10-20); BUN (Urea Nitrogen) 17 mg/dL (9.8-20.1); Calc. Creatinine Clearance 107 mL/min (70-130); Calcium 9.8 mg/dL (7.8-10.44); Carbon Dioxide 24 mmol/L (22-29); Chloride 103 mmol/L (98-107); Estimated GFR 103; Glucose 162 mg/dL (70-105); Potassium 3.8 mmol/L (3.5-5.1); Sodium 135 mmol/L (136-145)
[2023-05-27] MEDS: Melatonin 3 MG TAB PO PRN (20:54)
[2023-05-27] MEDS: Atorvastatin Calcium 40 MG TAB PO SCH (20:55)
[2023-05-27] MEDS: Zolpidem Tartrate 5 MG TAB PO PRN (20:55)
[2023-05-28] MEDS: HumaLOG 300 UNITS/3 ML VIAL SC PRN ×2 (06:09→15:59)
[2023-05-28] MEDS: NIFEdipine XL 30 MG TAB PO SCH (10:03)
[2023-05-28] MEDS: Polyethylene Glycol 3350 17 GM Packet PO SCH (10:04)
[2023-05-28] MEDS: Scopolamine 1.5 mg/72 hour Patch TD SCH (10:04)
[2023-05-28] MEDS: cloNIDine 0.1 MG TAB PO SCH ×3 (10:05→22:08)
[2023-05-28] MEDS: hydrALAZINE 25 MG TAB PO SCH ×3 (10:05→22:07)
[2023-05-28] MEDS: Carvedilol 25 MG TAB PO SCH ×2 (10:06→16:00)
[2023-05-28] MEDS: Citalopram 20 MG TAB PO SCH (10:06)
[2023-05-28] MEDS: Lisinopril 20 MG TAB PO SCH ×2 (10:06→22:07)
[2023-05-28] MEDS: Senokot S 8.6-50 MG TAB PO SCH ×2 (10:06→22:08)
[2023-05-28] MEDS: Oxybutynin 5 MG TAB PO SCH (10:06)
[2023-05-28] MEDS: metFORMIN 500 MG TAB PO SCH ×3 (10:06→18:25)
[2023-05-28] MEDS: QUEtiapine 25 MG TAB PO SCH (10:07)
[2023-05-28] MEDS: Fluticasone Propionate Nasal Spray 16 gm Bottle NASAL SCH (10:07)
[2023-05-28] MEDS: traMADol HCl 50 MG TAB PO PRN ×2 (15:58→22:06)
[2023-05-28] MEDS: Atorvastatin Calcium 40 MG TAB PO SCH (22:07)
[2023-05-28] MEDS: Melatonin 3 MG TAB PO PRN (22:08)
[2023-05-29] MEDS: traMADol HCl 50 MG TAB PO PRN ×4 (04:11→21:32)
[2023-05-29] MEDS: Fluticasone Propionate Nasal Spray 16 gm Bottle NASAL SCH (10:13)
[2023-05-29] MEDS: NIFEdipine XL 90 MG TAB PO SCH (10:14)
[2023-05-29] MEDS: hydrALAZINE 25 MG TAB PO SCH ×3 (10:14→21:30)
[2023-05-29] MEDS: Polyethylene Glycol 3350 17 GM Packet PO SCH (10:14)
[2023-05-29] MEDS: Senokot S 8.6-50 MG TAB PO SCH ×2 (10:15→21:31)
[2023-05-29] MEDS: cloNIDine 0.1 MG TAB PO SCH ×3 (10:15→21:30)
[2023-05-29] MEDS: Lisinopril 20 MG TAB PO SCH ×2 (10:15→21:30)
[2023-05-29] MEDS: metFORMIN 500 MG TAB PO SCH ×2 (10:15→18:04)
[2023-05-29] MEDS: Carvedilol 25 MG TAB PO SCH ×2 (10:15→18:04)
[2023-05-29] MEDS: HumaLOG 300 UNITS/3 ML VIAL SC PRN (15:35)
[2023-05-29] MEDS: Melatonin 3 MG TAB PO PRN (21:29)
[2023-05-29] MEDS: Atorvastatin Calcium 40 MG TAB PO SCH (21:30)
[2023-05-30] MEDS ORDERED: traMADol HCl 50 MG TAB PO SCH (00:30)
[2023-05-30] MEDS: traMADol HCl 50 MG TAB PO PRN ×3 (03:54→20:26)
[2023-05-30] MEDS: HumaLOG 300 UNITS/3 ML VIAL SC PRN ×2 (05:42→13:17)
[2023-05-30] MEDS: Fluticasone Propionate Nasal Spray 16 gm Bottle NASAL SCH (09:05)
[2023-05-30] MEDS: cloNIDine 0.1 MG TAB PO SCH ×3 (09:06→20:28)
[2023-05-30] MEDS: Polyethylene Glycol 3350 17 GM Packet PO SCH (09:06)
[2023-05-30] MEDS: Lisinopril 20 MG TAB PO SCH ×2 (09:07→20:27)
[2023-05-30] MEDS: Carvedilol 25 MG TAB PO SCH ×2 (09:07→16:16)
[2023-05-30] MEDS: NIFEdipine XL 90 MG TAB PO SCH (09:07)
[2023-05-30] MEDS: Senokot S 8.6-50 MG TAB PO SCH ×2 (09:07→20:28)
[2023-05-30] MEDS: metFORMIN 500 MG TAB PO SCH ×2 (09:07→16:16)
[2023-05-30] MEDS: hydrALAZINE 25 MG TAB PO SCH ×3 (09:07→20:27)
[2023-05-30] MEDS: Atorvastatin Calcium 40 MG TAB PO SCH (20:25)
[2023-05-30] MEDS: Melatonin 3 MG TAB PO PRN (20:26)
[2023-05-31] MEDS: traMADol HCl 50 MG TAB PO PRN (05:12)
[2023-05-31 07:46] VITALS: BP 146/83; TEMP 98.1
[2023-05-31] MEDS: Scopolamine 1.5 mg/72 hour Patch TD SCH (07:46)
[2023-05-31] MEDS: cloNIDine 0.1 MG TAB PO SCH (07:47)
[2023-05-31] MEDS: Carvedilol 25 MG TAB PO SCH (07:47)
[2023-05-31] MEDS: metFORMIN 500 MG TAB PO SCH (07:47)
[2023-05-31] MEDS: hydrALAZINE 25 MG TAB PO SCH (07:47)
[2023-05-31] MEDS: Lisinopril 20 MG TAB PO SCH (07:48)
[2023-05-31] MEDS: NIFEdipine XL 90 MG TAB PO SCH (07:59)
[2023-05-31] MEDS: Senokot S 8.6-50 MG TAB PO SCH (08:00)
[2023-05-31] MEDS: Polyethylene Glycol 3350 17 GM Packet PO SCH (08:00)
[2023-05-31] MEDS: Fluticasone Propionate Nasal Spray 16 gm Bottle NASAL SCH (08:00)
== END 2023-05-31 09:32 | disposition home or self-care (01) | DRG 4 ==
LOC: ERS 00:03 → CCU 00:11 → IMCU/EMU 02-13 10:25 → MSONC 02-15 16:54 → SURG B 04-11 15:41
PROVIDERS: ADMIT Internal Medicine; ATTEND Family Medicine
PROC: 0DH67UZ Insertion of Feeding Device into Stomach, Via Natural or Artificial Opening (ICD-10-PCS; principal; 2023-01-31)
PROC: 3E0G76Z Introduction of Nutritional Substance into Upper GI, Via Natural or Artificial Opening (ICD-10-PCS; 2023-01-31)
PROC: 0BH17EZ Insertion of Endotracheal Airway into Trachea, Via Natural or Artificial Opening (ICD-10-PCS; 2023-01-31)
PROC: 02HV33Z Insertion of Infusion Device into Superior Vena Cava, Percutaneous Approach (ICD-10-PCS; 2023-01-31)
PROC: 5A1955Z Respiratory Ventilation, Greater than 96 Consecutive Hours (ICD-10-PCS; 2023-01-31)
PROC: 4A133R1 Monitoring of Arterial Saturation, Peripheral, Percutaneous Approach (ICD-10-PCS; 2023-01-31)
PROC: 0B110F4 Bypass Trachea to Cutaneous with Tracheostomy Device, Open Approach (ICD-10-PCS; 2023-02-11)
PROC: 0DH63UZ Insertion of Feeding Device into Stomach, Percutaneous Approach (ICD-10-PCS; 2023-02-11)
PROC: 3E0G76Z Introduction of Nutritional Substance into Upper GI, Via Natural or Artificial Opening (ICD-10-PCS; 2023-02-11)
PROC: 0D20XUZ Change Feeding Device in Upper Intestinal Tract, External Approach (ICD-10-PCS; 2023-03-14)
DX: I61.0 Nontraumatic intracerebral hemorrhage in hemisphere, subcortical (principal); G93.6 Cerebral edema; J96.01 Acute respiratory failure with hypoxia; G93.41 Metabolic encephalopathy; J18.9 Pneumonia, unspecified organism; A41.9 Sepsis, unspecified organism; R65.21 Severe sepsis with septic shock; I16.1 Hypertensive emergency; G81.91 Hemiplegia, unspecified affecting right dominant side; R47.01 Aphasia; R64 Cachexia; N39.0 Urinary tract infection, site not specified; J98.11 Atelectasis; B37.0 Candidal stomatitis; K94.23 Gastrostomy malfunction; E11.65 Type 2 diabetes mellitus with hyperglycemia; I10 Essential (primary) hypertension; F17.210 Nicotine dependence, cigarettes, uncomplicated; R29.810 Facial weakness; E78.5 Hyperlipidemia, unspecified; R45.1 Restlessness and agitation; F14.10 Cocaine abuse, uncomplicated; R13.12 Dysphagia, oropharyngeal phase; Y83.8 Other surgical procedures as the cause of abnormal reaction of the patient, or of later complication, without mention of misadventure at the time of the procedure; R31.9 Hematuria, unspecified; D25.9 Leiomyoma of uterus, unspecified; G47.00 Insomnia, unspecified; I16.0 Hypertensive urgency; K59.00 Constipation, unspecified; J40 Bronchitis, not specified as acute or chronic; R29.721 NIHSS score 21; Z79.82 Long term (current) use of aspirin; Z79.84 Long term (current) use of oral hypoglycemic drugs; Z79.899 Other long term (current) drug therapy; Z79.4 Long term (current) use of insulin; Z91.148 Patient's other noncompliance with medication regimen for other reason; Z68.25 Body mass index [BMI] 25.0-25.9, adult
CPT/HCPCS: 31500; 36415; 36416; 36556; 36600; 49450; 70450; 70496; 70553; 71045; 74018; 74019; 74150; 74177; 74230; 80048; 80053; 80202; 80306; 80307; 81001; 81003; 81015; 82550; 82805; 83690; 83735; 84100; 84145; 84484; 85025; 85027; 85610; 85730; 87040; 87070; 87077; 87086; 87102; 87149; 87186; 87205; 87389; 93005; 93010; 93970; 94002; 94003; 94640; 95816; 95819; 95957; 96365; 96366; 96375; 96376; 97139; 99292; A9579; C9113; J0360; J0696; J1200; J1630; J1650; J1815; J1940; J1953; J2001; J2060; J2185; J2250; J2272; J2405; J2550; J2700; J2704; J2765; J3010; J3370; J3370-JW; J3475; J3480; J3490; J7042; J7050; J7070; J7120; J7620; J7999; P9047; Q0163; Q9963; Q9967